=== PATIENT | male | born 1960 | race Caucasian/White ===

== ENCOUNTER 2024-01-04 10:13 | Outpatient (CLI) | payer MEDICARE, SELFPAY ==
--- NOTE | ~2024-01-04 | MR_ITS ---
Procedure: MR lumbar spine wo con Ordering provider: Bettina Gonzalez MD History: . Spinal stenosis, low back pain . Comparison: None. Technique: MRI thoracic spine without contrast. FINDINGS: SPINAL CORD: Normal. The cord ends at the level of T12-L1. VERTEBRAL BODIES: Normal height and alignment. No compression fracture. Normal marrow signal. DISK SPACES: Endplate changes seen at the level of L2-L3, L3-L4 and L4-L5. Narrowing of the disc T12-L1, L1-L2, L2-L3, L3-L4, and L4-L5 STENOSIS: T12-L1: Mild focal central disc protrusion. L1-L2: Mild spinal canal stenosis. Mild diffuse disc bulge. Bilateral facet joint disease. L2-L3: Moderate spinal canal stenosis. Diffuse disc bulge with bilateral narrowing of the foramina. No definite nerve root compression. L3-L4: Severe spinal canal stenosis. Thickening of the ligamenta flava. Diffuse disc bulge with thick ening of the ligamenta flava. Left nerve root compression. Bilateral facet joint disease. L4-L5: Severe spinal canal stenosis. Thickening of the ligamenta flava. Bilateral narrowing of the fo ramina with nerve root compression. Bilateral facet joint disease. L5-S1: Mild to moderate spinal canal stenosis. Diffuse disc bulge. Thickening of the ligamenta flava. Bilateral facet joint disease. Bilateral narrowing of the foramina with bilateral nerve root ben norma. PARASPINOUS SOFT TISSUES: Normal. IMPRESSION: No compression fracture. Multilevel degenerative disc disease with variable degrees of spinal canal stenosis, intervertebral f oraminal narrowing and nerve root compression.. Reviewed, dictated and finalized at location A. IMPRESSION: No compression fracture. Multilevel degenerative disc disease with variable degrees of spinal canal sten osis, intervertebral foraminal narrowing and nerve root compression..
--- NOTE | ~2024-01-04 | MR_ITS ---
MR cervical spine wo con Ordering provider: Bettina Gonzalez MD History: 63 years Male with . Disease of spinal cord, neck pain . Comparison: None. Technique: MRI cervical spine without contrast. FINDINGS: CERVICAL SPINAL CORD/CRANIAL CERVICAL JUNCTION: Normal in signal and caliber. CERVICAL VERTEBRAL BODIES: Normal height and alignment. Normal marrow signal. Cystic changes are seen in the odontoid process of C2 most likely degenerative. No definite fractures seen. DISK SPACES: Narrowing of the disc C3-C4, C5-C6 and C6-C7. Multilevel facet joint disease. C2-C3: No stenosis. Mild diffuse disc bulge. C3-C4: No stenosis. Diffuse disc bulge with bilateral narrowing of the foramina more on the right crista e. Bilateral nerve root compression. C4-C5: No stenosis. Diffuse disc bulge with bilateral narrowing of the foramina more on the left side . Bilateral nerve root compression. C5-C6: Mild spinal canal stenosis secondary to broad based disc bulge. Bilateral narrowing of the fo ramina with nerve root compression. C6-C7: No stenosis. Osteophytes with diffuse disc bulge with bilateral narrowing of the foramina with root compression. C7-T1: No stenosis. VISUALIZED PARASPINOUS SOFT TISSUES: Normal. IMPRESSION: 1. Multilevel degenerative disc disease with variable degrees of spinal canal stenosis, intervertebr al foraminal narrowing and with compression. Reviewed, dictated and finalized at location A. IMPRESSION: 1. Multilevel degenerative disc disease with variable degrees of spinal canal stenosis, intervertebral foraminal narrowing and with compression.
== END 2024-01-04 10:14 | disposition home or self-care (01) ==
LOC: GOSHIMG 10:15
PROVIDERS: PCP Neurological Surgery; Visit Provider Neurological Surgery
DX: G54.4 Lumbosacral root disorders, not elsewhere classified (principal); M48.061 Spinal stenosis, lumbar region without neurogenic claudication; M48.07 Spinal stenosis, lumbosacral region
CPT/HCPCS: 72141; 72148

== ENCOUNTER 2024-03-28 14:04 | Outpatient (CLI) | payer MEDICARE, SELFPAY ==
--- NOTE | 2024-03-28 15:20 | ECG_ITS ---
Test Date: 2024-03-28 15:40:51 Measurements Intervals [place] Rate: 67 P: 49 MN: 130 QRS: 53 QRSD: 90 T: 129 QT: 364 QTc: 385 Interpretive Statements SINUS RHYTHM ST DEVIATION AND MODERATE T-WAVE ABNORMALITY, CONSIDER LATERAL ISCHEMIA [-0.1+ mV T WAVE IN I/aVL/V5/V6] No previous ECG available for comparison Electronically Signed On 03-30-2024 08:46:01 TRAFFIC AND TRANSPORT PLANNER by Rosendo Benjamin M.D.
[2024-03-28 16:08] LABS: Basophils Absolute Auto 0.1 K/mm3 (0.0-0.1); Basophils Percent Auto 0.8 % (0.2-1.2); Eosinophils Absolute Auto 0.3 K/mm3 (0-0.3); Eosinophils Percent Auto 3.2 % (0-4.4); Hematocrit 43.7 % (42.0-52.0); Hemoglobin 14.4 g/dL (14.0-18.0); Immature Granulocyte Absolute 0.03 K/mm3 (0.00-0.031); Immature Granulocyte Percent A 0.3 % (0-0.5); Lymphocytes Absolute Auto 1.87 K/mm3 (0.9-3.2); Lymphocytes Percent Auto 21.6 % (18.3-44.2); Mean Corpuscular Hemoglobin 29.3 pg (26-34); Mean Corpuscular Volume 88.8 fl (80-100); Mean Platelet Volume 9.9 fl (7.4-10.4); Monocytes Absolute Auto 0.5 K/mm3 (0.1-0.6); Neutrophils Absolute Auto 5.9 K/mm3 (1.3-6.7); Neutrophils Percent Auto 68.1 % (45.5-73.1); Platelet Count Result 285 k/mm3 (150-375); Red Blood Count 4.92 M/mm3 (4.6-6.20); Red Cell Distribution Width 13.4 % (11.5-14.5); White Blood Count 8.6 K/mm3 (4.5-10.0)
[2024-03-28 16:09] LABS: Add Urine Microscopic? NO; Appearance Urine Clear (Clear); Bilirubin Urine Negative (Negative); Blood Urine Negative (Negative); Color Urine Yellow (Yellow); Glucose Urine UA Negative (Negative); Ketones Urine Negative (Negative); Leukocyte Esterase Ur Negative LEU/UL (Negative); Nitrate Urine Negative (Negative); Protein Urine Negative (Negative); Specific Grav Ur 1.014 (1.001-1.035); Urobilinogen Urine 0.2 mg/dL (<2.0)
[2024-03-28 17:01] LABS: Anion Gap 7 mmol/L (4-12); Blood Urea Nitrogen 21 mg/dL (9-20); Calcium 9.1 mg/dL (8.4-10.2); Carbon Dioxide 26 mmol/L (22-30); Chloride 105 mmol/L (98-107); Estimated Glomerular Filt Rate > 60; Glucose 121 mg/dL (65-110); Potassium 4.1 mmol/L (3.4-5.0); Sodium 138 mmol/L (137-145)
[2024-03-28 18:12] LABS: INR 0.9; Partial Thromboplastin Time 27.3 Seconds (22.3-36.8); Prothrombin Time 12.7 Seconds (11.1-14.7)
== END 2024-03-28 14:05 | disposition home or self-care (01) ==
LOC: ANHSURGERY 14:09
PROVIDERS: PCP Clinical Nurse Specialist; Visit Provider Neurological Surgery
DX: Z01.818 Encounter for other preprocedural examination (principal); M48.062 Spinal stenosis, lumbar region with neurogenic claudication
CPT/HCPCS: 36415; 80048; 81003; 85025; 85610; 85730; 93005

== ENCOUNTER 2024-04-11 08:45 | Outpatient (CLI) | payer MEDICARE, SELFPAY ==
--- NOTE | ~2024-04-11 | NM_ITS ---
EXAMINATION: NM tye stress w perfusion DATE: 04/11/2024 11:16 INDICATION: Abnormal electrocardiogram. Preop. TECHNIQUE: Rest images were obtained following intravenous administration of 11.6 mCi Tc99m tetrofosm in (Myoview). The patient was infused intravenously with Lexiscan (regadenoson). Then, 35.3 mCi Tc99m tetrofosmin (Myoview) was administered intravenously, and stress images were obtained. Data was cindi nstructed into short axis and horizontal and vertical long axis SPECT images. Gated SPECT images were also obtained. COMPARISON: None. FINDINGS: There is no definite reversible or fixed perfusion abnormality to suggest ischemia or infar ction. There is no segmental wall motion abnormality. Left ventricular ejection fraction measures > 70%. IMPRESSION: 1. No definite ischemia or infarct. 2. Normal left ventricular ejection fraction measuring >70%. Reviewed, dictated and finalized at location B. UCT DEVELOPMENT SPECIALIST
--- NOTE | 2024-04-11 08:47 | EST_ITS ---
Patient Info Name: Rocael Clifford Age: 63 years : 1960 Gender: Male Ht: 70 in Wt: 195 lbs BSA: 2.11 m2 HR: 68 bpm BP: 171 / 98 mmHg Exam Date: 04/11/2024 10:18 AM Exam Location: Echo Lab Patient Status: Outpatient Admit Date: 04/11/2024 Staff Ordering Physician: Lisa Lagos Attending Provider: Lisa Lagos Exercise Technologist: Marcelina Okeefe RDCS Exercise Physician: Abdifatah Tariq DO Exam Type: CA stress tye w NM Study Info A regadenoson stress test was performed. Summary 1. 1. Negative lexiscan stress test for ischemic ST changes by ECG criteria. 2. 2. Baseline hypertension. 3. 3. Nuclear scan to follow and will be reported separately. Please correlate with it. 4. 4. Patient informed of the above results. Protocol: Lexiscan Stress ECG Details Stage: REST Duration (min): 2 min : 7 sec HR (bpm): 62 SBP (mmHg): 171 DBP (mmHg): 98 Stage: REST Duration (min): 6 min : 21 sec HR (bpm): 63 SBP (mmHg): 171 DBP (mmHg): 98 Stage: STAGE 1 Duration (min): 1 min : 0 sec HR (bpm): 80 SBP (mmHg): 171 DBP (mmHg): 98 Stage: RECOVERY Duration (min): 1 min : 0 sec HR (bpm): 92 SBP (mmHg): 188 DBP (mmHg): 69 Stage: RECOVERY Duration (min): 2 min : 0 sec HR (bpm): 82 SBP (mmHg): 188 DBP (mmHg): 69 Stage: RECOVERY Duration (min): 3 min : 0 sec HR (bpm): 85 SBP (mmHg): 157 DBP (mmHg): 73 Stage: RECOVERY Duration (min): 3 min : 15 sec HR (bpm): 82 SBP (mmHg): 157 DBP (mmHg): 73 Rest HR: 63 bpm Peak HR: 92 bpm Rest Sys BP: 171 mmHg Peak Sys BP: 188 mmHg Max Pred HR: 155 bpm % Max Pred HR: 59 % Target HR: 132 bpm Max RPP: 17,296 bpm*mmHg Termination Reason: Completed protocol Cardiac Symptoms: Shortness of breath Total Time: 1 min : 0 sec Rest Tucker BP: 98 mmHg Peak Tucker BP: 69 mmHg Total Dose: 0.4 mg Resting ECG Sinus rhythm. Stress ECG No ST changes. Arrhythmias None. Report Signatures
--- OUTSIDE RECORDS SUMMARY | 2024-04-13 16:19 | XMS_ITS | Clinical Summary ---
Author Organization [facility] Address [address] [place] [address] Phone Care Team Providers Care Polymer Specialist Name Role Phone MYESHA VALLECILLO MD Primary Care Provider [phone] Reason for Visit and Chief Complaint The Chief Complaint is: Follow up from procedure Problems Includes: Problems addressed during this encounter and other active Problems All Visits Onset Date Resolved Date Provider Condition S tatus Hypogonadism 10/07/2023 MYESHA VALLECILLO MD Acti ve Last Documented On 4 3:15PM ; [facility] Limb Pain Lower Leg 12/24/2022 HAMMAD Frederick Active Last Documented On 3 9:14AM ; [facility] Note: right Sleep Disorder Hypersomnia 07/31/2021 MYESHA VALLECILLO MD Active Last Documented On 3 5:17PM ; [facility] Hyperlipidemia 08/01/2019 MYESHA VALLECILLO MD Ac tive Last Documented On 3 5:11PM ; [facility] Encounter for immunization 03/23/2019 LAINE COLBY MD Active Last Documented On 0 12:46PM ; [facility] Osteoarthritis Primary Generalized 12/19/2018 Farzad VALLECILLO MD Active Last Documented On 9 11:13AM ; [facility] Essential Hypertension 12/19/2018 MYESHA DIAZ MD Active Last Documented On 9 11:13AM ; [facility] Hypothyroidism 12/19/2016 MYESHA VALLECILLO MD Ac tive Last Documented On 9 11:13AM ; [facility] Plan of Treatment He is doing very well. He is to continue limiting himself to lifting less than 10 pounds for 2 more weeks, and follow up in 1 month or sooner if needed. - Last Documented On 08/10/2023 4:26PM ; [facility] Assessments Includes: Assessments from this encounter Findings - [Z01.818 - Encounter for other preprocedural examination] Postoperative exam - Last Documented On 08/10/2023 4:26PM ; [facility] Medical Equipment - Implanted Devices Includes: Current Devices No Medical Equipment Recorded Medications Includes: Medications discussed during this encounter and other current Medications Current Medications (continue as prescribed) Modafinil 200 MG Oral Tablet 08/23/2023 Provider: MYESHA VALLECILLO MD Diagnosis: Circadian rhythm sleep disorder, shift work type TAKE 1 TABLET BY MOUTH EVERY DAY. Last Documented On 08/23/2023 5:51PM By MYESHA VALLECILLO MD ; [facility] Pregabalin 75 MG Oral Capsule 07/21/2023 Provider: GUILLE REESE MD Diagnosis: Radiculopathy, l umbar region TAKE 1 CAPSULE ORALLY EVERY 12 HOURS Last Documented On 07/21/2023 8:32AM By Guille Reese MD ; [facility] Testosterone 25 MG/2.5GM (1%) Transdermal Gel 06/10/2023 Provider: MYESHA VALLECILLO MD Diagnosis: Testicular dysfu nction, unspecified APPLY TO CLEAN, INTACT SKIN TWICE DAILY Last Documented On 06/10/2023 2:40PM By MYESHA VALLECILLO MD ; [facility] Ibuprofen 600 MG Oral Tablet 06/10/2023 Provider: MYESHA VALLECILLO MD Diagnosis: Primary generali zed (osteo)arthritis One tablet three times a day w food Last Documented On 06/10/2023 2:40PM By MYESHA VALLECILLO MD ; [facility] Fluticasone Propionate 50 MCG/ACT Nasal Suspension 06/10/2023 Provider: MYESHA VALLECILLO MD Diagnosis: Allergic rhiniti s due to pollen as directed 1 sq each nostri l 1-2xd as needed Last Documented On 06/10/2023 2:40PM By MYESHA VALLECILLO MD ; [facility] SB Low Dose ASA EC 81 MG Oral Tablet Delayed Release 1 04/08/2018 Provider: Diagnosis: Last Documented On 02/06/2019 10:36AM By MYESHA VALLECILLO MD ; [facility] Past Medications on file Sildenafil Citrate 100 MG Oral Tablet 09/09/2023 - 03/07/2024 Provider: MYESHA VALLECILLO MD Diagnosis: Testicular dysfu nction, unspecified One tablet daily Last Documented On 09/09/2023 3:32PM By MYESHA VALLECILLO MD ; [facility] Levothyroxine Sodium 50 MCG Oral Tablet 08/23/2023 - 02/19/2024 Provider: MYESHA VALLECILLO MD Diagnosis: Hypothyroidism, unspecified TAKE 1 TABLET BY MOUTH EVERY DAY Last Documented On 08/23/2023 5:51PM By MYESHA VALLECILLO MD ; [facility] Medications Administered Includes: Administered Medications from this encounter No Administered Medications Recorded Vital Signs Includes: Vital Signs from this encounter Vital Name 08/10/2023 09:42A BP Cuff Size Regular Respiration Rate (breaths/min) 18 Temp-Temporal 97.7 Height (in) 71 Weight (lb) 211 Body Mass Index 29.4 Body Surface Area 2.2 Oxygen Saturation (%) 94 Last Documented: On 08/10/2023 9:42AM ; [facility] Results Includes: Results discussed during this encounter No Results Recorded For Specified Dates History of Present Illness Includes: History of Present Illness from this encounter ANABEL CLIFFORD is a 62 year old male. - Allergy list reviewed - Medication list reviewed Mr Clifford is a 61 year old male who presents for a colonoscopy. His last was about 10 years ago in [place], and showed a few small polyps. He has since done a cologuard in about 2017 which he says was negative. He denies abdominal pain, blood in the stool, family history of colon cancer, and GERD. He returns today in follow up from colonoscopy done on November 27, 2022. This showed 3 small polyps and a questionable lesion on the ileocecal valve. The IC valve lesions was normal colon wall. The polyps were a sessile serrated adenoma, and 2 tubular adenomas. He denies any new complaints. He returns today wanting to further discuss repair of his umbilical hernia. He has been having some worsening discomfort, especially when it is touched. He denies abdominal pain, nausea, and vomiting. He returns today after Laparoscopic Umbilical Hernia Repair on August 02, 2023. He is feeling better every day, and only took about 2 Norcos. He is tolerating a regular diet well, and is having regular bowel movements. Social History Description Last Updated Not a current smoker 06/10/2023 Last Documented On 4 9:41AM ; [facility] Consuming 5 or more drinks per day None 06/10/2023 Last Documented On 4 9:41AM ; [facility] Not recovering alcoholic 06/10/2023 Last Documented On 4 9:41AM ; [facility] Not recovering from substance abuse 05/21 Last Documented On 4 9:41AM ; [facility] Number of times used recreat ional drug/ prescription drug for nonmedical reason. None 06/10/2023 Last Documented On 4 9:41AM ; [facility] No recent change in sleep 01/21/2023 Last Documented On 4 9:41AM ; [facility] Alcohol 01/21/2023 Last Documented On 4 9:41AM ; [facility] Amount of alcohol per day: 1-2 3 Last Documented On 4 9:41AM ; [facility] Not using drugs 01/21/2023 Last Documented On 4 9:41AM ; [facility] Not a job-related injury 08/26/2022 Last Documented On 4 9:41AM ; [facility] Not using alcohol 05/08/2022 Last Documented On 4 9:41AM ; [facility] Former smoker 05/08/2022 Last Documented On 4 9:41AM ; [facility] Tobacco non-user 03/13/2021 Last Documented On 4 9:41AM ; [facility] Current nonsmoker 05/24/2020 Last Documented On 4 9:41AM ; [facility] Social history changed 11/30/2019 Last Documented On 4 9:41AM ; [facility] Non-smoker 11/30/2019 Last Documented On 4 9:41AM ; [facility] Smoking status : Never smoker 06/26/2019 Last Documented On 4 9:41AM ; [facility] No tobacco use 12/19/2018 Last Documented On 4 9:41AM ; [facility] Procedures and Surgical History Surgical History Last Updated No Pacemaker 01/21/2023 Last Documented On 4 9:41AM ; [facility] Medical History Includes: Medical History addressed during this encounter Description Last Updated Blood pressure was high 01/21/2023 Last Documented On 4 9:41AM ; [facility] Hypertension 01/21/2023 Last Documented On 4 9:41AM ; [facility] No exposure to a contagious disease 04/2022 Last Documented On 4 9:41AM ; [facility] No previous psychiatric treatment 2022 Last Documented On 4 9:41AM ; [facility] Not taking OTC medications 01/21/2023 Last Documented On 4 9:41AM ; [facility] Taking medication for high blood pressur e 01/21/2023 Last Documented On 4 9:41AM ; [facility] CT/MRI [facility] dec 30 01/21/2023 Last Documented On 4 9:41AM ; [facility] Message/Acupressure 01/21/2023 Last Documented On 4 9:41AM ; [facility] Moderate to severe pain 01/21/2023 Last Documented On 4 9:41AM ; [facility] No Pain Pump 01/21/2023 Last Documented On 4 9:41AM ; [facility] No Spinal cord stimulator 01/21/2023 Last Documented On 4 9:41AM ; [facility] Please list all illnesses/co nditions you have been diagnosed with: Spinal stenosis. sciatica. bulging diskno spring on either foot right foot ortho issues 01/21/2023 Last Documented On 4 9:41AM ; [facility] Please list all surgeries: Foot surgery august [address] [facility] [address] [place] 01/21/2023 Last Documented On 4 9:41AM ; [facility] X-rays [facility] dr vallecillo referred xray nov 2022 01/21/2023 Last Documented On 4 9:41AM ; [facility] History of colonoscopy fiberoptic was pe rformed 11/25/2022 12/09/2022 Last Documented On 4 9:41AM ; [facility] History of hyperlipidemia 02/06/2019 Last Documented On 4 9:41AM ; [facility] History of essential hypertension 2018 Last Documented On 4 9:41AM ; [facility] No recent change in medical history 11/22 Last Documented On 4 9:41AM ; [facility] Family History Includes: Family History addressed during this encounter No Family History Recorded Review of Systems Includes: Review of Systems from this encounter Systemic: No fever and no recent weight change. Head: No headache. Eyes: No blurry vision and no eye pain. Otolaryngeal: No earache and no sore throat. Cardiovascular: No chest pain or discomfort and no palpitations. Pulmonary: No dyspnea and no cough. Gastrointestinal: Normal appetite, no abdominal pain, and no melena. Genitourinary: No hematuria and no increase in urinary frequency. No dysuria. Endocrine: No temperature intolerance. Hematologic: No hematologic symptoms. Musculoskeletal: No localized soft tissue swelling in both extremities. Neurological: No convulsions. Mental Status Includes: Mental Status from this encounter No Mental Status Recorded Functional Status Includes: Functional Status from this encounter No Functional Status Recorded Physical Exam Includes: Physical Exam from this encounter Allergies Includes: Active Allergies No Known Allergies Encounters Encounter Provider Location Date Check-In Time Check-Out Time Diagnosis FOLLOW UP CHARLOTTE UNGER MD [facility] 08/10/19 24 9:25AM 9:43AM Postoperative Exam Insurance Includes: Active Insurance Policies Plan Name Member ID Group # Subscriber Relationship Effect sally Dates 1 - [employer] [id number] SHAKA CLIFFORD Self Clinical Notes Includes: Clinical Notes from this encounter * Progress note Date Encounter Last Documented by 08/10/2023 FOLLOW UP Last documented on 08/10/2023; 4:26 PM, CHARLOTTE UNGER MD; [facility] Top of Document This document represents the pre-surgical History & Physical for this patient Active Problems & Conditions - Z23 - Encounter for immunization - I10 - Essential Hypertension - Hyperlipidemia - E03.9 - Hypothyroidism - M79.661 - Limb Pain Lower Leg - right - M15.0 - Osteoarthritis Primary Generalized - G47.10 - Sleep Disorder Hypersomnia - E29.9 - Testicular Dysfunction Chief Complaint The Chief Complaint is: Follow up from procedure. History of Present Illness SHAKA CLIFFORD is a 62 year old male. - Allergy list reviewed - Medication list reviewed Mr Clifford is a 61 year old male who presents for a colonoscopy. His last was about 10 years ago in [place], and showed a few small polyps. He has since done a cologuard in about 2017 which he says was negative. He denies abdominal pain, blood in the stool, family history of colon cancer, and GERD. He returns today in follow up from colonoscopy done on November 27, 2022. This showed 3 small polyps and a questionable lesion on the ileocecal valve. The IC valve lesions was normal colon wall. The polyps were a sessile serrated adenoma, and 2 tubular adenomas. He denies any new complaints. He returns today wanting to further discuss repair of his umbilical hernia. He has been having some worsening discomfort, especially when it is touched. He denies abdominal pain, nausea, and vomiting. He returns today after Laparoscopic Umbilical Hernia Repair on August 02, 2023. He is feeling better every day, and only took about 2 Norcos. He is tolerating a regular diet well, and is having regular bowel movements. Current Medication - Fluticasone Propionate 50 MCG/ACT Nasal Suspension as directed 1 sq each nostril 1-2xd as needed, 30 days, 5 refills - Ibuprofen 600 MG Oral Tablet One tablet three times a day w food, 30 days, 5 refills - Levothyroxine Sodium 50 MCG Oral Tablet TAKE 1 TABLET BY MOUTH EVERY DAY, 90 days, 1 refills - Modafinil 200 MG Oral Tablet TAKE 1 TABLET BY MOUTH EVERY DAY., 30 days, 0 refills - Pregabalin 75 MG Oral Capsule TAKE 1 CAPSULE ORALLY EVERY 12 HOURS, 30 days, 2 refills - SB Low Dose ASA EC 81 MG Oral Tablet Delayed Release One tablet daily 0 days, 0 refills - Sildenafil Citrate 100 MG Oral Tablet One tablet daily, 90 days, 1 refills - Testosterone 25 MG/2.5GM (1%) Transdermal Gel APPLY TO CLEAN, INTACT SKIN TWICE DAILY, 30 days, 4 refills Past Medical/Surgical History Reported: No recent change in medical history, Message/Acupressure, Please list all illnesses/conditions you have been diagnosed with: Spinal stenosis. sciatica. bulging diskno spring on either foot right foot ortho issues, and Please list all surgeries: Foot surgery august [address] [facility] [address] [place]. Medical: No previous psychiatric treatment. Moderate to severe pain and Hypertension. No Spinal cord stimulator and no Pain Pump. Surgical / Procedural: No Pacemaker. Medications: Taking medication for high blood pressure. Not taking OTC medications. Tests: Blood pressure was high, X-rays [facility] dr vallecillo referred xray nov 2022, and CT/MRI [facility] jan 18. Exposure: No exposure to a contagious disease. Other: Diagnostic fiberoptic colonoscopy 11/25/2022 Diagnoses: Essential hypertension. Hyperlipidemia Social History Social history changed. Behavioral: Amount of alcohol per day: 1-2. Tobacco use: No tobacco use and not a current smoker. Former smoker, current nonsmoker, and non-smoker. Smoking status: Never smoker. Alcohol: Alcohol. Not using alcohol. Consuming 5 or more drinks per day None. Not recovering alcoholic. Drug Use: Not using drugs and not recovering from substance abuse. Number of times used recreational drug/ prescription drug for nonmedical reason. None. Habits: No recent change in sleep. Work: Not a job-related injury. Allergies - No Known Allergies Review Of Systems Systemic: No fever and no recent weight change. Head: No headache. Eyes: No blurry vision and no eye pain. Otolaryngeal: No earache and no sore throat. Cardiovascular: No chest pain or discomfort and no palpitations. Pulmonary: No dyspnea and no cough. Gastrointestinal: Normal appetite, no abdominal pain, and no melena. Genitourinary: No hematuria and no increase in urinary frequency. No dysuria. Endocrine: No temperature intolerance. Hematologic: No hematologic symptoms. Musculoskeletal: No localized soft tissue swelling in both extremities. Neurological: No convulsions. Physical Findings - Vitals taken 08/10/2023 09:42 am BP Cuff Size Regular Respiration Rate 18 per min Temp-Temporal 97.7 F Height 71 in Weight 211 lbs Body Mass Index 29.4 kg/m2 Body Surface Area 2.2 m2 Oxygen Saturation 94 % General Appearance: - Well developed. - Well nourished. - In no acute distress. Eyes: General/bilateral: Pupils: - PERRLA. Lungs: - Clear to auscultation. - No wheezing was heard. Cardiovascular: Heart Rate And Rhythm: - Normal. Abdomen: Auscultation: - Bowel sounds were normal soft, mild appropriate incisional tenderness, ND, +BS, no rebound or gaurding. There is no further hernia. There is minmal ecchymosis, and no sign of infection. Palpation: - Abdominal non-tender. Skin: - Normal. Assessment - [Z01.818 - Encounter for other preprocedural examination] Postoperative exam Plan He is doing very well. He is to continue limiting himself to lifting less than 10 pounds for 2 more weeks, and follow up in 1 month or sooner if needed. Health Reminders - Assess Need for CT Lung Screen satisfied 08/10/2023. - Assess Tobacco Use satisfied 08/10/2023. - Colorectal Cancer Screening satisfied 11/25/2022.
--- OUTSIDE RECORDS SUMMARY | 2024-04-13 16:19 | XMS_ITS ---
Care Plan - [facility] Created on: April 13, 2024 SHAKA COTO : 1960 Sex: Male Author Organization [facility] Address [address] [place] [address] Phone Care Team Providers Care District Plant Engineer Name Role Phone MYESHA VALLECILLO MD Primary Care Provider [phone]
--- OUTSIDE RECORDS SUMMARY | 2024-04-13 16:19 | XMS_ITS | Clinical Summary ---
Author Organization [facility] Address [address] [place] [address] Phone Care Team Providers Care Clocksmith Name Role Phone MYESHA VALLECILLO MD Primary Care Provider [phone] Reason for Visit and Chief Complaint SURGERY IN HOSPITAL Problems Includes: Problems addressed during this encounter and other active Problems All Visits Onset Date Resolved Date Provider Condition S tatus Hypogonadism 10/07/2023 MYESHA VALLECILLO MD Acti ve Last Documented On 4 3:15PM ; [facility] Limb Pain Lower Leg 12/24/2022 [facility] Active Last Documented On 3 9:14AM ; [facility] Note: right Sleep Disorder Hypersomnia 07/31/2021 MYESHA VALLECILLO MD Active Last Documented On 3 5:17PM ; [facility] Hyperlipidemia 08/01/2019 MYESHA VALLECILLO MD Ac tive Last Documented On 3 5:11PM ; [facility] Encounter for immunization 03/23/2019 LAINE COLBY MD Active Last Documented On 0 12:46PM ; [facility] Osteoarthritis Primary Generalized 12/19/2018 Farzad VALLECILLO MD Active Last Documented On 9 11:13AM ; [facility] Essential Hypertension 12/19/2018 MYESHA DIAZ MD Active Last Documented On 9 11:13AM ; [facility] Hypothyroidism 12/19/2016 MYESHA VALLECILLO MD Ac tive Last Documented On 9 11:13AM ; [facility] Plan of Treatment No Plan of Treatment Recorded Assessments Includes: Assessments from this encounter No Assessments Recorded Medical Equipment - Implanted Devices Includes: Current Devices No Medical Equipment Recorded Medications Includes: Medications discussed during this encounter and other current Medications Current Medications (continue as prescribed) Modafinil 200 MG Oral Tablet 08/23/2023 Provider: MYESHA VALLECILLO MD Diagnosis: Circadian rhythm sleep disorder, shift work type TAKE 1 TABLET BY MOUTH EVERY DAY. Last Documented On 08/23/2023 5:51PM By MYESHA VALLECILLO MD ; [facility] Pregabalin 75 MG Oral Capsule 07/21/2023 Provider: GUILLE REESE MD Diagnosis: Radiculopathy, l umbar region TAKE 1 CAPSULE ORALLY EVERY 12 HOURS Last Documented On 07/21/2023 8:32AM By Guille Reese MD ; [facility] Testosterone 25 MG/2.5GM (1%) Transdermal Gel 06/10/2023 Provider: MYESHA VALLECILLO MD Diagnosis: Testicular dysfu nction, unspecified APPLY TO CLEAN, INTACT SKIN TWICE DAILY Last Documented On 06/10/2023 2:40PM By MYESHA VALLECILLO MD ; [facility] Ibuprofen 600 MG Oral Tablet 06/10/2023 Provider: MYESHA VALLECILLO MD Diagnosis: Primary generali zed (osteo)arthritis One tablet three times a day w food Last Documented On 06/10/2023 2:40PM By MYESHA VALLECILLO MD ; [facility] Fluticasone Propionate 50 MCG/ACT Nasal Suspension 06/10/2023 Provider: MYESHA VALLECILLO MD Diagnosis: Allergic rhiniti s due to pollen as directed 1 sq each nostri l 1-2xd as needed Last Documented On 06/10/2023 2:40PM By MYESHA VALLECILLO MD ; [facility] SB Low Dose ASA EC 81 MG Oral Tablet Delayed Release 1 04/08/2018 Provider: Diagnosis: Last Documented On 02/06/2019 10:36AM By MYESHA VALLECILLO MD ; [facility] Medications Administered Includes: Administered Medications from this encounter No Administered Medications Recorded Results Includes: Results discussed during this encounter No Results Recorded For Specified Dates History of Present Illness Includes: History of Present Illness from this encounter No History of Present Illness Recorded Social History No Social History Recorded - Smoking Status Unknown Procedures and Surgical History Includes: Procedures from this encounter Procedures Code Diagnosis Performing Provider Service Location Service Date REPAIR OF [address]TERIOR A[address] HERNIA, AND APPROACH< 3CM DEFECT 68686 Umbilical hernia without obstruction or gangrene [facility]TE UNGER MD [facility] 08/02/2023 Last Documented On 4 8:32AM ; [facility] Medical History Includes: Medical History addressed during this encounter No Medical History Recorded Family History Includes: Family History addressed during this encounter No Family History Recorded Review of Systems Includes: Review of Systems from this encounter No Review of Systems Recorded Mental Status Includes: Mental Status from this encounter No Mental Status Recorded Functional Status Includes: Functional Status from this encounter No Functional Status Recorded Physical Exam Includes: Physical Exam from this encounter No Physical Exam Recorded Allergies Includes: Active Allergies No Known Allergies Encounters Encounter Provider Location Date Check-In Time Check-Out Time Diagnosis SURGERY IN HOSPITAL [facility] UNGER MD [facility] 4 8:32AM 11:59PM Insurance Includes: Active Insurance Policies Plan Name Member ID Group # Subscriber Relationship Effect sally Dates - [employer] [id number] SHAKA COTO Self Clinical Notes Includes: Clinical Notes from this encounter No Clinical Notes Recorded
--- OUTSIDE RECORDS SUMMARY | 2024-04-13 16:19 | XMS_ITS | Clinical Summary ---
Author Organization [facility] Address [address] [place] [address] Phone Care Team Providers Care Oil Speculator Name Role Phone MYESHA VALLECILLO MD Primary Care Provider [phone] Reason for Visit and Chief Complaint * PHONE CALL Problems Includes: Problems addressed during this encounter and other active Problems All Visits Onset Date Resolved Date Provider Condition S tatus Hypogonadism 10/07/2023 MYESHA VALLECILLO MD Acti ve Last Documented On 4 3:15PM ; [facility] Limb Pain Lower Leg 12/24/2022 [facility] Active Last Documented On 3 9:14AM ; [facility] Note: right Sleep Disorder Hypersomnia 07/31/2021 MYESHA VALLECILLO MD Active Last Documented On 3 5:17PM ; [facility] Hyperlipidemia 08/01/2019 MYESHA VALLECILLO MD Ac tive Last Documented On 3 5:11PM ; [facility] Encounter for immunization 03/23/2019 LAINE COLBY MD Active Last Documented On 0 12:46PM ; [facility] Osteoarthritis Primary Generalized 12/19/2018 Farzad VALLECILLO MD Active Last Documented On 9 11:13AM ; [facility] Essential Hypertension 12/19/2018 MYESHA DIAZ MD Active Last Documented On 9 11:13AM ; [facility] Hypothyroidism 12/19/2016 MYESHA VALLECILLO MD Ac tive Last Documented On 9 11:13AM ; [facility] Plan of Treatment No Plan [...] 08/23/2023 5:51PM By MYESHA VALLECILLO MD ; [facility] Pregabalin 75 MG Oral Capsule 07/21/2023 Provider: GUILLE REESE MD Diagnosis: Radiculopathy, l umbar region TAKE 1 CAPSULE ORALLY EVERY 12 HOURS Last Documented On 07/21/2023 8:32AM By Guille Reese MD ; [facility] Testosterone 25 MG/2.5GM (1%) Transdermal Gel 06/10/2023 Provider: MYESHA VALLECILLO MD Diagnosis: Testicular dysfu nction, unspecified APPLY TO CLEAN, INTACT SKIN TWICE DAILY Last Documented On 06/10/2023 2:40PM By MYESHA VALLECILLO MD ; [facility] Ibuprofen 600 MG Oral Tablet 06/10/2023 Provider: MYESHA VALLECILLO MD Diagnosis: Primary generali zed (osteo)arthritis One tablet three times a day w food Last Documented On 06/10/2023 2:40PM By MYESHA VALLECILLO MD ; [facility] Fluticasone Propionate 50 MCG/ACT Nasal Suspension 06/10/2023 Provider: MYESHA VALLECILLO MD Diagnosis: Allergic rhiniti s due to pollen as directed 1 sq each nostri l 1-2xd as needed Last Documented On 06/10/2023 2:40PM By MYESHA VALLECILLO MD ; [facility] SB Low Dose ASA EC 81 MG Oral Tablet Delayed Release 1 04/08/2018 Provider: Diagnosis: Last Documented On 02/06/2019 10:36AM By MYESHA VALLECILLO MD ; [facility] Medications Administered Includes: Administered Medications from this encounter No Administered Medications Recorded Results Includes: Results discussed during this encounter No Results Recorded For Specified Dates History of Present Illness Includes: History of Present Illness from this encounter No History of Present Illness Recorded Social History No Social History Recorded - Smoking Status Unknown Medical History Includes: Medical History addressed during [...] Location Date Check-In Time Check-Out Time Diagnosis * PHONE CALL GUILLE REESE MD [facility] 4 8:45AM 11:59PM Insurance Includes: Active Insurance Policies Plan Name Member ID Group # Subscriber Relationship Effect sally Dates - [employer] [id number] SHAKA COTO Self Clinical Notes Includes: Clinical Notes from this encounter No Clinical Notes Recorded
--- OUTSIDE RECORDS SUMMARY | 2024-04-13 16:19 | XMS_ITS ---
Author Organization [facility] Address [address] [place] [address] Phone Care Team Providers Care Technical Document Writer Name Role Phone MYESHA HARTMANN MD Primary Care Provider [phone] Reason for Referral Date Encounter Description Provider Reason for Referral 12/17/22 PROBLEM VISIT MYESHA HARTMANN MD Request Consultation By Specialist - ortho 05/08/22 CHECK UP MYESHA HARTMANN MD Request C onsultation By Specialist - ---GI Problems Includes: Active, inactive, and resolved Problems All Visits Onset Date Resolved Date Provider Condition S tatus Hypogonadism 10/07/2023 MYESHA HARTMANN MD Acti ve Last Documented On 4 3:15PM ; [facility] Limb Pain Lower Leg 12/24/2022 HAMMAD Frederick Active Last Documented On 3 9:14AM ; [facility] Note: right Sleep Disorder Hypersomnia 07/31/2021 MYESHA HARTMANN MD Active Last Documented On 3 5:17PM ; [facility] Hyperlipidemia 08/01/2019 MYESHA HARTMANN MD Ac tive Last Documented On 3 5:11PM ; [facility] Encounter for immunization 03/23/2019 LAINE COLBY MD Active Last Documented On 0 12:46PM ; [facility] Osteoarthritis Primary Generalized 12/19/2018 Farzad HARTMANN MD Active Last Documented On 9 11:13AM ; [facility] Essential Hypertension 12/19/2018 MYESHA DIAZ MD Active Last Documented On 9 11:13AM ; [facility] Hypothyroidism 12/19/2016 MYESHA HARTMANN MD Ac tive Last Documented On 9 11:13AM ; [facility] Plan of Treatment Findings Encounter Date Continue current medication CHECK UP with MYESHA HARTMANN MD 06/10/2023 Last Documented On 4 3:18PM ; [facility] Ordered CBC CHECK UP with MYESHA HARTMANN MD 06/10/2023 Last Documented On 4 3:18PM ; [facility] Ordered comprehensive metabo lic panel /test f/t CHECK UP with MYESHA HARTMANN MD 06/10/2023 Last Documented On 4 3:18PM ; [facility] Ordered follow-up visit Fay CHECK UP with FLORINDA HARTMANN MD 06/10/2023 Last Documented On 4 3:18PM ; [facility] I would like to obtain an MR I of the lumbar spine without contrast due to his radicular discomfort as well as his atrophy and weakness in the calves along with his pain in the right buttock that worsens with sneezing. Perhaps he has some discogenic discomfort, but also likely some foraminal stenosis that would affect possibly the L5 nerve root. He has not gotten better with time as well as exercise or oral steroids. We discussed after he gets the MRI of the lumbar spine without contrast, we would send him to pain management for discussion of a possible epidural injection as he wants to avoid any surgical intervention ORTHO ESTABLISHED PATIENT with HAMMAD Frederick 12/24/2022 Last Documented On 3 9:20AM ; [facility] Continue current medication pred PROBLEM VISIT w ith MYESHA HARTMANN MD 12/17/2022 Last Documented On 3 12:04PM ; [facility] Ordered analgesics (non-ster oidal anti-inflammatory agents) PROBLEM VISIT with MYESHA HARTMANN MD 12/17/2022 Last Documented On 3 12:04PM ; [facility] Ordered follow-up visit --dec PROBLEM VISIT with MYESHA HARTMANN MD 12/17/2022 Last Documented On 3 12:04PM ; [facility] Ordered home range of motion exercises P ROBLEM VISIT with MYESHA HARTMANN MD 12/17/2022 Last Documented On 3 12:04PM ; [facility] Requested request consultati on by specialist ortho PROBLEM VISIT with MYESHA HARTMANN MD 12/17/2022 Last Documented On 3 12:04PM ; [facility] Continue current medication CHECK UP with MYESHA HARTMANN MD 11/20/2022 Last Documented On 3 3:57PM ; [facility] Ordered follow-up visit dec CHECK UP with MYESHA HARTMANN MD 11/20/2022 Last Documented On 3 3:57PM ; [facility] Treatment options reviewed w ith the patient related to condition/diagnosis. Discussed advantages and disadvantages as well as risks/potential complications related to nail surgery. Risk of recurrence explained. All questions answered, informed consent reviewed and pt agrees to proceed. Patient has decided to try taking doxycycline for the next week and then he will come back in a week later to have the nail removed if necessary. Patinet to have an xray to rule out a bone spur. PODIATRY CONSULTATION- ESTABLISHED PATIENT with SULY Frederick 08/26/2022 Last Documented On 3 2:27PM ; [facility] Continue current medication CHECK UP with MYESHA HARTMANN MD 07/31/2022 Last Documented On 3 5:31PM ; [facility] Ordered comprehensive metabo lic panel /tsh/psa/a1c CHECK UP with MYESHA HARTMANN MD 07/31/2022 Last Documented On 3 5:31PM ; [facility] Ordered follow-up visit CHECK UP with MYESHA PALACIOS MD 07/31/2022 Last Documented On 3 5:31PM ; [facility] Continue current medication CHECK UP with MYESHA HARTMANN MD 05/08/2022 Last Documented On 3 3:33PM ; [facility] Ordered CBC CHECK UP with MYESHA HARTMANN MD 05/08/2022 Last Documented On 3 3:33PM ; [facility] Ordered comprehensive metabo lic panel /test/TSH CHECK UP with MYESHA HARTMANN MD 05/08/2022 Last Documented On 3 3:33PM ; [facility] Ordered follow-up visit may CHECK UP with MYESHA HARTMANN MD 05/08/2022 Last Documented On 3 3:33PM ; [facility] Requested request consultati on by specialist ---GI CHECK UP with MYESHA HARTMANN MD 05/08/2022 Last Documented On 3 3:33PM ; [facility] Continue current medication CHECK UP with MYESHA HARTMANN MD 10/03/2021 Last Documented On 2 3:26PM ; [facility] Ordered comprehensive metabo lic panel /psa CHECK UP with MYESHA HARTMANN MD 10/03/2021 Last Documented On 2 3:26PM ; [facility] Ordered follow-up visit oct CHECK UP with MYESHA HARTMANN MD 10/03/2021 Last Documented On 2 3:26PM ; [facility] Continue current medication add modafil 200 qd - CHECK UP with MYESHA HARTMANN MD 05/16/2021 Last Documented On 2 6:09PM ; [facility] Ordered follow-up visit MAY CHECK UP with MYESHA HARTMANN MD 05/16/2021 Last Documented On 2 6:09PM ; [facility] Continue current medication CHECK UP with MYESHA HARTMANN MD 01/16/2021 Last Documented On 1 11:19AM ; [facility] Ordered comprehensive metabo lic panel lipid CHECK UP with MYESHA HARTMANN MD 01/16/2021 Last Documented On 1 11:19AM ; [facility] Ordered follow-up visit Mickey CHECK UP with MYESHA HARTMANN MD 01/16/2021 Last Documented On 1 11:19AM ; [facility] Continue current medication CHECK UP with MYESHA HARTMANN MD 05/24/2020 Last Documented On 1 2:46PM ; [facility] Ordered CBC CHECK UP with MYESHA HARTMANN MD 05/24/2020 Last Documented On 1 2:46PM ; [facility] Ordered comprehensive metabolic panel CHECK UP w eliazar HARTMANN MD 05/24/2020 Last Documented On 1 2:46PM ; [facility] Ordered follow-up visit aug CHECK UP with MYESHA HARTMANN MD 05/24/2020 Last Documented On 1 2:46PM ; [facility] Continue current medication CHECK UP with MYESHA HARTMANN MD 11/30/2019 Last Documented On 0 5:30PM ; [facility] Ordered CBC CHECK UP with MYESHA HARTMANN MD 11/30/2019 Last Documented On 0 5:30PM ; [facility] Ordered comprehensive metabolic panel CHECK UP w eliazar MYESHA HARTMANN MD 11/30/2019 Last Documented On 0 5:30PM ; [facility] Ordered follow-up visit feb CHECK UP with MYESHA HARTMANN MD 11/30/2019 Last Documented On 0 5:30PM ; [facility] Continue current medication 2 MONTH CHECK with Farzad HARTMANN MD 06/26/2019 Last Documented On 0 11:28AM ; [facility] Ordered comprehensive metabo lic panel /Testosterone 2 MONTH CHECK with MYESHA HARTMANN MD 06/26/2019 Last Documented On 0 11:28AM ; [facility] Ordered follow-up visit SEPTEMBER 2 MONTH CHECK with MYESHA HARTMANN MD 06/26/2019 Last Documented On 0 11:28AM ; [facility] Continue current medication 3 MONTH CHECK with Farzad HARTMANN MD 04/27/2019 Last Documented On 0 10:03AM ; [facility] Ordered CBC 3 MONTH CHECK with MYESHA DIAZ MD 04/27/2019 Last Documented On 0 10:03AM ; [facility] Ordered comprehensive metabolic panel 3 MONTH CHECK with MYESHA HARTMANN MD 04/27/2019 Last Documented On 0 10:03AM ; [facility] Ordered follow-up visit q3m May 3 MONTH CHECK wi th MYESHA HARTMANN MD 04/27/2019 Last Documented On 0 10:03AM ; [facility] Ordered follow-up visit 3 months INJECTION with LAINE TOLEDO MD 03/13/2019 Last Documented On 0 12:48PM ; [facility] Ordered return to the clinic if condition worsens or new symptoms arise INJECTION with LAINE TOLEDO MD 03/13/2019 Last Documented On 0 12:48PM ; [facility] PLAN [Use for s.o.a.p. note free text] INJECTION with LAINE TOLEDO MD 03/13/2019 Last Documented On 0 12:48PM ; [facility] Continue current medication 2 MONTH CHECK with Farzad HARTMANN MD 02/06/2019 Last Documented On 9 10:59AM ; [facility] Ordered comprehensive metabolic panel 2 MONTH CHECK with MYESHA HARTMANN MD 02/06/2019 Last Documented On 9 10:59AM ; [facility] Ordered follow-up visit feb 2 MONTH CHECK with Farzad HARTMANN MD 02/06/2019 Last Documented On 9 10:59AM ; [facility] Continue current medication NEW PATIENT VISIT wi th MYESHA HARTMANN MD 12/19/2018 Last Documented On 9 11:32AM ; [facility] Ordered CBC NEW PATIENT VISIT with MYESHA HARTMANN MD 12/19/2018 Last Documented On 9 11:32AM ; [facility] Ordered comprehensive metabolic panel NE W PATIENT VISIT with MYESHA HARTMANN MD 12/19/2018 Last Documented On 9 11:32AM ; [facility] Pending Tests Order Diagnosis Results Due Ordering P rovider X-ray - IN OFFICE [facility] Lumbar Spine Complete Polyosteoarthritis, unspecified 12/17/22 MYESHA HARTMANN MD Last Documented On 3 11:05AM ; [facility] X-ray - IN OFFICE [facility] Hip, Unilateral Pain in right hip 12/17/22 MYESHA HARTMANN MD Last Documented On 3 11:04AM ; [facility] Lab Comp Metabolic Panel 06/10/23 ADELNIA HARTMANN MD Last Documented On 4 3:18PM ; [facility] Lab *CBC W/DIFF 07/10/23 MYESHA DIAZ MD Last Documented On 4 3:18PM ; [facility] Referrals To Diagnosis Orthopedic JOSE OAKLEY DO - [facility] - [address] [place] [id number] - Pain in right knee Note: Dr Oakley Last Documented On 1 12:58PM ; [facility] General Surgery [facility] - [address] [place] [address] - Disorder of the skin and subcutaneous tissue, unspecified Note: R post calf--kesha Bella Last Documented On 1 9:00PM ; [facility] Res Habilitation Assistant [facility] - [address] [place] [id number] - Encounter for screening for malignant neoplasm of colon Note: Dr Bella Last Documented On 4 7:41AM ; [facility] Podiatry JONATHAN HENRY DP M - [address] [address] - Ingrowing nail Last Documented On 3 9:01AM ; [facility] Orthopedic [address] [address] - Pain in right hip Note: R Khoi florez Last Documented On 3 10:01AM ; [facility] Pain Management WILL FULELR MD - [facility] - [address] [place] [address] - Radiculopathy, lumbar region Note: EVAL AND TREATRT LEG R ADICULOPATHYSUSPECTED L5 RADICULOPATHY*WE ORDERED MRI 12/24/22 TO BE COMPLETED BEFORE SEEING T Last Documented On 4 11:16AM ; [facility] Orthopedic DEVANG SEXTON MD - [facility] Radic ulopathy, lumbar region Note: MRI SHOWED SPINAL STEN OSIS, SEVERE ARTHRITIS, AND A DISC BULG Last Documented On 4 1:42PM ; [facility] Neurosurgeon MANOHAR BRAMBILA MD - [facility] - [address] [place] [phone] - Spinal stenosis, lumbar region with neurogenic claudication Note: Please evaluate need/c andidacy for surgical decompression: right low back and lower extremity pain secondary to known lumbar spinal stenosis with radiculopathy and neurogenic claudication with failure to respond to physical therapy and epidural steroid injections. Consider lumbar decompression for central canal stenosis L2 through S1 greatest at L3 - 4 and L4 -5. Last Documented On 4 9:46AM ; [facility] Instructions to patient Intervention and counseling on cessation of tobacco use Last Documented On 4 5:19PM ; [facility] Intervention and counseling on cessation of tobacco use Last Documented On 4 1:53PM ; [facility] Intervention and counseling on cessation of tobacco use Last Documented On 4 4:38PM ; [facility] Intervention and counseling on cessation of tobacco use Last Documented On 3 11:08AM ; [facility] Intervention and counseling on cessation of tobacco use Last Documented On 3 8:09AM ; [facility] Intervention and counseling on cessation of tobacco use Last Documented On 3 9:22AM ; [facility] Intervention and counseling on cessation of tobacco use Last Documented On 3 1:54PM ; [facility] Intervention and counseling on cessation of tobacco use Last Documented On 3 4:41PM ; [facility] Intervention and counseling on cessation of tobacco use Last Documented On 3 2:59PM ; [facility] Intervention and counseling on cessation of tobacco use Last Documented On 0 9:45AM ; [facility] Intervention and counseling on cessation of tobacco use Last Documented On 9 10:47AM ; [facility] Intervention and counseling on cessation of tobacco use Last Documented On 9 11:19AM ; [facility] Education and Decision Aids were provided during visit for: Patient education about home safety plans for prevention of falls : Patient completed a Fall risk assesment and was provided fall risk education materials Last Documented On 4 5:19PM ; [facility] Patient education about home safety plans for prevention of falls : Patient completed a Fall risk assesment and was provided fall risk education materials Last Documented On 4 4:38PM ; [facility] Assessments Includes: Assessments for all patient encounters Findings Encounter Date [Z01.818 - Encounter for ot er preprocedural examination] postoperative exam FOLLOW UP with CHARLOTTE BELLA MD 09/07/2023 Last Documented On 4 1:11PM ; [facility] [Z01.818 - Encounter for oth er preprocedural examination] postoperative exam FOLLOW UP with CHARLOTTE BELLA MD 08/10/2023 Last Documented On 4 4:26PM ; [facility] [K42.9 - Umbilical hernia wi thout obstruction or gangrene] reducible umbilical hernia FOLLOW UP with CHARLOTTE BELLA MD 06/29/2023 Last Documented On 4 11:56AM ; [facility] Lumbar stenosis with neuroge erasmo claudication PAIN MANAGEMENT FOLLOW UP with WILL FULLER MD 06/23/2023 Last Documented On 4 6:14AM ; [facility] Lumbosacral radiculopathy PAIN MANAGEMENT FOLLOW UP with WILL FULLER MD 06/23/2023 Last Documented On 4 6:14AM ; [facility] Lumbosacral spondylosis PAIN MANAGEMENT FOLLOW U P with WILL FULLER MD 06/23/2023 Last Documented On 4 6:14AM ; [facility] Vertebrogenic low back pain PAIN MANAGEM ENT FOLLOW UP with WILL FULLER MD 06/23/2023 Last Documented On 4 6:14AM ; [facility] Essential hypertension CHECK UP with MYESHA RIDER MD 06/10/2023 Last Documented On 4 3:18PM ; [facility] Hyperlipidemia CHECK UP with MYESHA HARTMANN MD 06/10/2023 Last Documented On 4 3:18PM ; [facility] Hypersomnia CHECK UP with MYESHA HARTMANN MD 06/10/2023 Last Documented On 4 3:18PM ; [facility] Hypogonadism CHECK UP with MYESHA HARTMANN MD 06/10/2023 Last Documented On 4 3:18PM ; [facility] Hypothyroidism CHECK UP with MYESHA HARTMANN MD 06/10/2023 Last Documented On 4 3:18PM ; [facility] Pain in lower leg CHECK UP with MYESHA HARTMANN MD 06/10/2023 Last Documented On 4 3:18PM ; [facility] Primary generalized osteoarthritis CHECK UP with MYESHA HARTMANN MD 06/10/2023 Last Documented On 4 3:18PM ; [facility] Lumbar stenosis with neuroge erasmo claudication PAIN MANAGEMENT FOLLOW UP with WILL FULLER MD 03/31/2023 Last Documented On 4 6:17PM ; [facility] Lumbosacral radiculopathy PAIN MANAGEMENT FOLLOW UP with WILL FULLER MD 03/31/2023 Last Documented On 4 6:17PM ; [facility] Lumbosacral spondylosis PAIN MANAGEMENT FOLLOW U P with WILL FULLER MD 03/31/2023 Last Documented On 4 6:17PM ; [facility] Vertebrogenic low back pain PAIN MANAGEM ENT FOLLOW UP with WILL FULLER MD 03/31/2023 Last Documented On 4 6:17PM ; [facility] Lumbar stenosis with neuroge erasmo claudication PAIN MANAGEMENT FOLLOW UP with WILL FULLER MD 02/25/2023 Last Documented On 3 4:38PM ; [facility] Lumbosacral radiculopathy PAIN MANAGEMENT FOLLOW UP with WILL FULLER MD 02/25/2023 Last Documented On 3 4:38PM ; [facility] Lumbosacral spondylosis PAIN MANAGEMENT FOLLOW U P with WILL FULLER MD 02/25/2023 Last Documented On 3 4:38PM ; [facility] Vertebrogenic low back pain PAIN MANAGEM ENT FOLLOW UP with WILL FULLER MD 02/25/2023 Last Documented On 3 4:38PM ; [facility] Lumbar stenosis with neuroge erasmo claudication PAIN MANAGEMENT NEW CONSULT ESTABLISHED with WILL FULLER MD 01/21/2023 Last Documented On 3 11:38AM ; [facility] Lumbosacral radiculopathy PAIN MANAGEMEN T NEW CONSULT ESTABLISHED with WILL FULLER MD 01/21/2023 Last Documented On 3 11:38AM ; [facility] Lumbosacral spondylosis PAIN MANAGEMENT NEW CONSULT ESTABLISHED with WILL FULLER MD 01/21/2023 Last Documented On 3 11:38AM ; [facility] Vertebrogenic low back pain PAIN MANAGEM ENT NEW CONSULT ESTABLISHED with IWLL FULLER MD 01/21/2023 Last Documented On 3 11:38AM ; [facility] Pain in lower leg ORTHO ESTABLISHED PATIENT with HAMMAD Frederick 12/24/2022 Last Documented On 3 9:20AM ; [facility] Hypersomnia PROBLEM VISIT with MYESHA DIAZ MD 12/17/2022 Last Documented On 3 12:04PM ; [facility] Hypothyroidism PROBLEM VISIT with MYESHA DIAZ MD 12/17/2022 Last Documented On 3 12:04PM ; [facility] Testicular dysfunction PROBLEM VISIT with MYESHA HARTMANN MD 12/17/2022 Last Documented On 3 12:04PM ; [facility] [Z86.010 - Personal history of colonic polyps] Personal history of colon polyps FOLLOW UP with CHARLOTTE BELLA MD 12/09/2022 Last Documented On 3 9:59PM ; [facility] [Z86.010 - Personal history of colonic polyps] Personal history of colon polyps CONSULTATION - NEW PATIENT with CHARLOTTE BELLA MD 10/19/2022 Last Documented On 3 1:28PM ; [facility] Ingrowing toenail of right foot CHECK UP with MA RADHA A ONTIS JD EDWARDS C 09/09/2022 Last Documented On 3 12:58PM ; [facility] Pain in right toe CHECK UP with SULY A ONTIS JD EDWARDS C 09/09/2022 Last Documented On 3 12:58PM ; [facility] Ingrowing toenail of right foot CHECK UP with NAA HENRY DPM 09/02/2022 Last Documented On 3 2:37PM ; [facility] Pain in right toe CHECK UP with JONATHAN Patel DPM 09/02/2022 Last Documented On 3 2:37PM ; [facility] Cellulitis of right foot PODIATRY CONSUL TATION- ESTABLISHED PATIENT with SULY A ONTIS JD EDWARDS C 08/26/2022 Last Documented On 3 2:27PM ; [facility] Ingrowing toenail of right foot PODIATRY CONSULTATION- ESTABLISHED PATIENT with SULY A ONTIS JD EDWARDS C 08/26/2022 Last Documented On 3 2:27PM ; [facility] Pain in right toe PODIATRY CONSULTATIO N- ESTABLISHED PATIENT with SULY QUINTERO JD EDWARDS C 08/26/2022 Last Documented On 3 2:27PM ; [facility] Essential hypertension CHECK UP with MYESHA RIDER MD 07/31/2022 Last Documented On 3 5:31PM ; [facility] Hyperlipidemia CHECK UP with MYESHA HARTMANN MD 07/31/2022 Last Documented On 3 5:31PM ; [facility] Hypothyroidism CHECK UP with MYESHA HARTMANN MD 07/31/2022 Last Documented On 3 5:31PM ; [facility] Primary generalized osteoarthritis CHECK UP with MYESHA HARTMANN MD 07/31/2022 Last Documented On 3 5:31PM ; [facility] Testicular dysfunction CHECK UP with MYESHA RIDER MD 07/31/2022 Last Documented On 3 5:31PM ; [facility] Essential hypertension CHECK UP with MYESHA RIDER MD 05/16/2021 Last Documented On 2 6:09PM ; [facility] Hypothyroidism CHECK UP with MYESHA HARTMANN MD 05/16/2021 Last Documented On 2 6:09PM ; [facility] Primary generalized osteoarthritis CHECK UP with MYESHA HARTMANN MD 05/16/2021 Last Documented On 2 6:09PM ; [facility] Testicular dysfunction CHECK UP with MYESHA RIDER MD 05/16/2021 Last Documented On 2 6:09PM ; [facility] COVID-19 infection COVID SICK VISIT- ES TABLISHED PATIENT with LUCIO TAY JD EDWARDS-C 03/13/2021 Last Documented On 1 12:03PM ; [facility] Essential hypertension CHECK UP with MYESHA RIDER MD 01/16/2021 Last Documented On 1 11:19AM ; [facility] Hypothyroidism CHECK UP with MYESHA HARTMANN MD 01/16/2021 Last Documented On 1 11:19AM ; [facility] Primary generalized osteoarthritis CHECK UP with MYESHA HARTMANN MD 01/16/2021 Last Documented On 1 11:19AM ; [facility] Testicular dysfunction CHECK UP with MYESHA RIDER MD 01/16/2021 Last Documented On 1 11:19AM ; [facility] Essential hypertension CHECK UP with MYESHA RIDER MD 05/24/2020 Last Documented On 1 2:46PM ; [facility] Essential hypertension CHECK UP with MYESHA RIDER MD 05/24/2020 Last Documented On 1 2:46PM ; [facility] [facility] UP with MYESHA HARTMANN MD 05/24/2020 Last Documented On 1 2:46PM ; [facility] Hypothyroidism CHECK UP with MYESHA HARTMANN MD 05/24/2020 Last Documented On 1 2:46PM ; [facility] Primary generalized osteoarthritis CHECK UP with MYESHA HARTMANN MD 05/24/2020 Last Documented On 1 2:46PM ; [facility] Primary generalized osteoarthritis CHECK UP with MYESHA HARTMANN MD 05/24/2020 Last Documented On 1 2:46PM ; [facility] Testicular dysfunction CHECK UP with MYESHA RIDER MD 05/24/2020 Last Documented On 1 2:46PM ; [facility] Testicular dysfunction CHECK UP with MYESHA RIDER MD 05/24/2020 Last Documented On 1 2:46PM ; [facility] [L81.4 - Other melanin hyper pigmentation] lentigo SUTURE REMOVAL with CHARLOTTE BELLA MD 12/15/2019 Last Documented On 0 8:30AM ; [facility] [L98.8 - Other specified dis orders of the skin and subcutaneous tissue] skin lesion: CONSULTATION with CHARLOTTE BELLA MD 12/06/2019 Last Documented On 0 2:02PM ; [facility] Essential hypertension CHECK UP with MYESHA RIDER MD 11/30/2019 Last Documented On 0 5:30PM ; [facility] Hypothyroidism CHECK UP with MYESHA HARTMANN MD 11/30/2019 Last Documented On 0 5:30PM ; [facility] Primary generalized osteoarthritis CHECK UP with MYESHA HARTMANN MD 11/30/2019 Last Documented On 0 5:30PM ; [facility] Testicular dysfunction CHECK UP with MYESHA RIDER MD 11/30/2019 Last Documented On 0 5:30PM ; [facility] Essential hypertension 2 MONTH CHECK with MYESHA HARTMANN MD 06/26/2019 Last Documented On 0 11:28AM ; [facility] Hypothyroidism 2 MONTH CHECK with MYESHA DIAZ MD 06/26/2019 Last Documented On 0 11:28AM ; [facility] Primary generalized osteoarthritis 2 MONTH CHECK with MYESHA HARTMANN MD 06/26/2019 Last Documented On 0 11:28AM ; [facility] Testicular dysfunction 2 MONTH CHECK with MYESHA HARTMANN MD 06/26/2019 Last Documented On 0 11:28AM ; [facility] Essential hypertension 3 MONTH CHECK with MYESHA HARTMANN MD 04/27/2019 Last Documented On 0 10:03AM ; [facility] Hypothyroidism 3 MONTH CHECK with MYESHA DIAZ MD 04/27/2019 Last Documented On 0 10:03AM ; [facility] Primary generalized osteoarthritis 3 MONTH CHECK with MYESHA HARTMANN MD 04/27/2019 Last Documented On 0 10:03AM ; [facility] Testicular dysfunction 3 MONTH CHECK with MYESHA HARTMANN MD 04/27/2019 Last Documented On 0 10:03AM ; [facility] Essential hypertension INJECTION with LAINE DHALIWAL MD 03/13/2019 Last Documented On 0 12:48PM ; [facility] Hypothyroidism INJECTION with LAINE TOLEDO MD 03/13/2019 Last Documented On 0 12:48PM ; [facility] Primary generalized osteoarthritis INJECTION wit h LAINE TOLEDO MD 03/13/2019 Last Documented On 0 12:48PM ; [facility] Testicular dysfunction INJECTION with LAINE DHALIWAL MD 03/13/2019 Last Documented On 0 12:48PM ; [facility] Essential hypertension NEW PATIENT VISIT with DO SYDNI HARTMANN MD 12/19/2018 Last Documented On 9 11:32AM ; [facility] Essential hypertension NEW PATIENT VISIT with DO SYDNI HARTMANN MD 12/19/2018 Last Documented On 9 11:32AM ; [facility] Hypothyroidism NEW PATIENT VISIT with MYESHA HARTMANN MD 12/19/2018 Last Documented On 9 11:32AM ; [facility] Hypothyroidism NEW PATIENT VISIT with MYESHA HARTMANN MD 12/19/2018 Last Documented On 9 11:32AM ; [facility] Primary generalized osteoarthritis NEW P ATIENT VISIT with MYESHA HARTMANN MD 12/19/2018 Last Documented On 9 11:32AM ; [facility] Primary generalized osteoarthritis NEW P ATIENT VISIT with MYESHA HARTMANN MD 12/19/2018 Last Documented On 9 11:32AM ; [facility] Testicular dysfunction NEW PATIENT VISIT with DO SYDNI HARTMANN MD 12/19/2018 Last Documented On 9 11:32AM ; [facility] Testicular dysfunction NEW PATIENT VISIT with DO SYDNI HARTMANN MD 12/19/2018 Last Documented On 9 11:32AM ; [facility] Instructions Includes: Instructions for all patient encounters Instructions to patient Intervention and counseling on cessation of tobacco use Last Documented On 4 5:19PM ; [facility] Intervention and counseling on cessation of tobacco use Last Documented On 4 1:53PM ; [facility] Intervention and counseling on cessation of tobacco use Last Documented On 4 4:38PM ; [facility] Intervention and counseling on cessation of tobacco use Last Documented On 3 11:08AM ; [facility] Intervention and counseling on cessation of tobacco use Last Documented On 3 8:09AM ; [facility] Intervention and counseling on cessation of tobacco use Last Documented On 3 9:22AM ; [facility] Intervention and counseling on cessation of tobacco use Last Documented On 3 1:54PM ; [facility] Intervention and counseling on cessation of tobacco use Last Documented On 3 4:41PM ; [facility] Intervention and counseling on cessation of tobacco use Last Documented On 3 2:59PM ; [facility] Intervention and counseling on cessation of tobacco use Last Documented On 0 9:45AM ; [facility] Intervention and counseling on cessation of tobacco use Last Documented On 9 10:47AM ; [facility] Intervention and counseling on cessation of tobacco use Last Documented On 9 11:19AM ; [facility] Education and Decision Aids were provided during visit for: Patient education about home safety plans for prevention of falls : Patient completed a Fall risk assesment and was provided fall risk education materials Last Documented On 4 5:19PM ; [facility] Patient education about home safety plans for prevention of falls : Patient completed a Fall risk assesment and was provided fall risk education materials Last Documented On 4 4:38PM ; [facility] Medical Equipment - Implanted Devices Includes: Current and historical Devices No Medical Equipment Recorded Medications Includes: Current and historical Medications Current Medications (continue as prescribed) Modafinil 200 MG Oral Tablet 08/23/2023 Provider: MYESHA HARTMANN MD Diagnosis: Circadian rhythm sleep disorder, shift work type TAKE 1 TABLET BY MOUTH EVERY DAY. Last Documented On 08/23/2023 5:51PM By MYESHA HARTMANN MD ; [facility] Pregabalin 75 MG Oral Capsule 07/21/2023 Provider: WILL FULLER MD Diagnosis: Radiculopathy, l umbar region TAKE 1 CAPSULE ORALLY EVERY 12 HOURS Last Documented On 07/21/2023 8:32AM By Will Fuller MD ; [facility] Testosterone 25 MG/2.5GM (1%) Transdermal Gel 06/10/2023 Provider: MYESHA HARTMANN MD Diagnosis: Testicular dysfu nction, unspecified APPLY TO CLEAN, INTACT SKIN TWICE DAILY Last Documented On 06/10/2023 2:40PM By MYESHA HARTMANN MD ; [facility] Ibuprofen 600 MG Oral Tablet 06/10/2023 Provider: MYESHA HARTMANN MD Diagnosis: Primary generali zed (osteo)arthritis One tablet three times a day w food Last Documented On 06/10/2023 2:40PM By MYESHA HARTMANN MD ; [facility] Fluticasone Propionate 50 MCG/ACT Nasal Suspension 06/10/2023 Provider: MYESHA HARTMANN MD Diagnosis: Allergic rhiniti s due to pollen as directed 1 sq each nostri l 1-2xd as needed Last Documented On 06/10/2023 2:40PM By MYESHA HARTMANN MD ; [facility] SB Low Dose ASA EC 81 MG Oral Tablet Delayed Release 1 04/08/2018 Provider: Diagnosis: Last Documented On 02/06/2019 10:36AM By MYESHA HARTMANN MD ; [facility] Past Medications on file Sildenafil Citrate 100 MG Oral Tablet 09/09/2023 - 03/07/2024 Provider: MYESHA HARTMANN MD Diagnosis: Testicular dysfu nction, unspecified One tablet daily Last Documented On 09/09/2023 3:32PM By MYESHA HARTMANN MD ; [facility] Levothyroxine Sodium 50 MCG Oral Tablet 08/23/2023 - 02/19/2024 Provider: MYESAH HARTMANN MD Diagnosis: Hypothyroidism, unspecified TAKE 1 TABLET BY MOUTH EVERY DAY Last Documented On 08/23/2023 5:51PM By MYESHA HARTMANN MD ; [facility] Modafinil 200 MG Oral Tablet 07/19/2023 - 08/23/2023 Provider: MYESHA HARTMANN MD Diagnosis: Circadian rhythm sleep disorder, shift work type TAKE 1 TABLET BY MOUTH EVERY DAY. Last Documented On 08/23/2023 5:48PM By MYESHA HARTMANN MD ; [facility] Modafinil 200 MG Oral Tablet 06/01/2023 - 07/19/2023 Provider: MYESHA HARTMANN MD Diagnosis: Circadian rhythm sleep disorder, shift work type TAKE 1 TABLET BY MOUTH EVERY DAY. Last Documented On 07/19/2023 12:48PM By MYESHA HARTMANN MD ; [facility] Testosterone 25 MG/2.5GM (1%) Transdermal Gel 05/25/2023 - 06/10/2023 Provider: MYESHA HARTMANN MD Diagnosis: Testicular dysfunction, unspecified APPLY TO CLEAN, INTACT SKIN TWICE DAILY Last Documented On 06/10/2023 2:26PM By MYESHA HARTMANN MD ; [facility] Pregabalin 75 MG Oral Capsule 05/19/2023 - 07/21/2023 Provider: WILL Panda Diagnosis: Radiculopathy, l umbar region Take 1 cap PO Q 12 hours Last Documented On 07/21/2023 8:28AM By Will Fuller MD ; [facility] Gabapentin 300 MG Oral Capsule 04/27/2023 - 06/10/2023 Provider: WILL Panda Diagnosis: Radiculopathy, l umbar region take one capsule po q12 x 7 days then increase to 1 capsule po q8 hours as tolerated. Last Documented On 06/10/2023 1:50PM By Tri Dominguez MA ; [facility] Testosterone 25 MG/2.5GM (1%) Transdermal Gel 04/21/2023 - 05/25/2023 Provider: MYESHA HARTMANN MD Diagnosis: Testicular dysfunction, unspecified APPLY TO CLEAN, INTACT SKIN TWICE DAILYcall schedule follow-up Last Documented On 05/25/2023 6:41PM By MYESHA HARTMANN MD ; [facility] Pregabalin 75 MG Oral Capsule 04/21/2023 - 04/27/2023 Provider: WILL FULLER MD Diagnosis: Radiculopathy, lumbosacral region take one cap po q 12 hours. Last Documented On 04/27/2023 5:26PM By Will Fuller MD ; [facility] Modafinil 200 MG Oral Tablet 04/20/2023 - 06/01/2023 Provider: MYESHA HARTMANN MD Diagnosis: Circadian rhythm sleep disorder, shift work type TAKE 1 TABLET BY MOUTH EVERY DAY. APPOINTMENT NEEDED Last Documented On 06/01/2023 12:39PM By MYESHA HARTMANN MD ; [facility] Levothyroxine Sodium 50 MCG Oral Tablet 04/20/2023 - 08/23/2023 Provider: MYESHA HARTMANN MD Diagnosis: Hypothyroidism, unspecified TAKE 1 TABLET BY MOUTH EVERY DAY Last Documented On 08/23/2023 5:48PM By MYESHA HARTMANN MD ; [facility] Azithromycin 500 MG Oral Tablet 04/20/2023 - Provider: MYESHA HARTMANN MD Diagnosis: One tablet daily Last Documented On 06/10/2023 1:50PM By Tri Dominguez MA ; [facility] Testosterone 25 MG/2.5GM (1%) Transdermal Gel 04/15/2023 - 04/21/2023 Provider: MYESHA HARTMANN MD Diagnosis: Testicular dysfunction, unspecified APPLY TO CLEAN, INTACT SKIN TWICE DAILYcall schedule follow-up Last Documented On 04/21/2023 8:30AM By MYESHA HARTMANN MD ; [facility] Modafinil 200 MG Oral Tablet 04/14/2023 - 04/20/2023 Provider: MYESHA HARTMANN MD Diagnosis: Circadian rhythm sleep disorder, shift work type TAKE 1 TABLET BY MOUTH EVERY DAY. APPOINTMENT NEEDED Last Documented On 04/20/2023 4:24PM By MYESHA HARTMANN MD ; [facility] Testosterone 25 MG/2.5GM (1%) Transdermal Gel 03/04/2023 - 04/15/2023 Provider: MYESHA HARTMANN MD Diagnosis: Testicular dysfunction, unspecified APPLY TO CLEAN, INTACT SKIN TWICE DAILY Last Documented On 04/15/2023 12:08PM By MYESHA HARTMANN MD ; [facility] Pregabalin 75 MG Oral Capsule 02/25/2023 - 04/21/2023 Provider: WILL FULLER MD Diagnosis: Radiculopathy, lumbosacral region take one cap po qhs x 7 days then increase as tolerated to one cap po q 12 hours. Last Documented On 04/21/2023 6:24PM By Will Fuller MD ; [facility] predniSONE 20 MG Oral Tablet 12/17/2022 - 02/25/2023 Provider: MYESHA HARTMANN MD Diagnosis: Pain in right hi p 2 po qd Last Documented On 02/25/2023 4:50PM By Jose Alejandro Drew [facility] ; [facility] Levothyroxine Sodium 50 MCG Oral Tablet 11/20/2022 - 04/20/2023 Provider: MYESHA HARTMANN MD Diagnosis: Hypothyroidism, unspecified TAKE 1 TABLET BY MOUTH EVERY DAY Last Documented On 04/20/2023 4:24PM By MYESHA HARTMANN MD ; [facility] Fluticasone Propionate 50 MCG/ACT Nasal Suspension 11/20/2022 - 06/10/2023 Provider: MYESHA HARTMANN MD Diagnosis: Allergic rhiniti s due to pollen as directed 1 sq each nostril 1-2xd as needed Last Documented On 06/10/2023 2:26PM By MYESHA HARTMANN MD ; [facility] Celecoxib 200 MG Oral Capsule 11/20/2022 - 06/10/2023 Provider: MYESHA HARTMANN MD Diagnosis: Polyosteoarthrit is, unspecified 1 capsule daily w food Last Documented On 06/10/2023 1:50PM By Tri Dominguez MA ; [facility] Testosterone 25 MG/2.5GM (1%) Transdermal Gel 11/20/2022 - 03/04/2023 Provider: MYESHA HARTMANN MD Diagnosis: Testicular dysfunction, unspecified apply 2xd Last Documented On 03/04/2023 2:41PM By MYESHA HARTMANN MD ; [facility] Sildenafil Citrate 100 MG Oral Tablet 11/20/2022 - 09/09/2023 Provider: MYESHA HARTMANN MD Diagnosis: Testicular dysfu nction, unspecified One tablet daily Last Documented On 09/09/2023 3:19PM By MYESHA HARTMANN MD ; [facility] Modafinil 200 MG Oral Tablet 11/06/2022 - 04/14/2023 Provider: MYESHA HARTMANN MD Diagnosis: Circadian rhythm sleep disorder, shift work type TAKE 1 TABLET BY MOUTH EVERY DAY schedule Nov follow-up Last Documented On 04/14/2023 4:32PM By MYESHA HARTMANN MD ; [facility] Doxycycline Hyclate 100 MG Oral Capsule 08/26/2022 - 09/02/2022 Provider: SULY QUINTERO JD EDWARDS C Diagnosis: One tablet twice a day Last Documented On 9:21AM By Sharri Addison Homer ; [facility] Testosterone 25 MG/2.5GM (1%) Transdermal Gel 07/13/2022 - 11/20/2022 Provider: MYESHA HARTMANN MD Diagnosis: Testicular dysfunction, unspecified apply 2xd Last Documented On 11/20/2022 3:39PM By MYESHA HARTMANN MD ; [facility] Levothyroxine Sodium 50 MCG Oral Tablet 07/13/2022 - 11/20/2022 Provider: MYESHA HARTMANN MD Diagnosis: Hypothyroidism, unspecified TAKE 1 TABLET BY MOUTH EVERY DAY Last Documented On 11/20/2022 3:39PM By MYESHA HARTMANN MD ; [facility] amLODIPine Besylate 5 MG Oral Tablet 05/08/2022 - 07/31/2022 Provider: MYESHA HARTMANN MD Diagnosis: Essential (prima ry) hypertension One tablet daily Last Documented On 07/31/2022 4:41PM By Tri Dominguez MA ; [facility] Modafinil 200 MG Oral Tablet 05/08/2022 - 11/06/2022 Provider: MYESHA HARTMANN MD Diagnosis: Circadian rhythm sleep disorder, shift work type TAKE 1 TABLET BY MOUTH EVERY DAY Last Documented On 11/06/2022 12:46PM By MYESHA HARTMANN MD ; [facility] Sildenafil Citrate 100 MG Oral Tablet 05/08/2022 - 11/20/2022 Provider: MYESHA HARTMANN MD Diagnosis: Testicular dysfu nction, unspecified One tablet daily Last Documented On 11/20/2022 3:39PM By MYESHA HARTMANN MD ; [facility] Ibuprofen 600 MG Oral Tablet 05/08/2022 - 06/10/2023 Provider: MYESHA HARTMANN MD Diagnosis: Primary generali zed (osteo)arthritis One tablet three times a day w meals prn Last Documented On 06/10/2023 1:50PM By Tri Dominguez MA ; [facility] Testosterone 25 MG/2.5GM (1%) Transdermal Gel 04/16/2022 - 07/13/2022 Provider: MYESHA HARTMANN MD Diagnosis: Testicular dysfunction, unspecified apply 2xd Last Documented On 07/13/2022 12:02PM By MYESHA HARTMANN MD ; [facility] Modafinil 200 MG Oral Tablet 04/10/2022 - 05/08/2022 Provider: MYESHA HARTMANN MD Diagnosis: Circadian rhythm sleep disorder, shift work type TAKE 1 TABLET BY MOUTH EVERY DAY Last Documented On 05/08/2022 3:19PM By MYESHA HARTMANN MD ; [facility] Testosterone 25 MG/2.5GM (1%) Transdermal Gel 04/10/2022 - 04/16/2022 Provider: MYESHA HARTMANN MD Diagnosis: Testicular dysfunction, unspecified apply 2xd Last Documented On 04/16/2022 11:33AM By MYESHA HARTMANN MD ; [facility] Testosterone 25 MG/2.5GM (1%) Transdermal Gel 04/08/2022 - 04/10/2022 Provider: MYESHA HARTMANN MD Diagnosis: Testicular dysfunction, unspecified APPLY 1 PACKET TWICE DAILY Last Documented On 04/10/2022 12:59PM By MYESHA HARTMANN MD ; [facility] Modafinil 200 MG Oral Tablet 04/08/2022 - 04/10/2022 Provider: MYESHA HARTMANN MD Diagnosis: Circadian rhythm sleep disorder, shift work type TAKE 1 TABLET BY MOUTH EVERY DAY Last Documented On 04/10/2022 12:58PM By MYESHA HARTMANN MD ; [facility] Modafinil 200 MG Oral Tablet 01/09/2022 - 04/08/2022 Provider: MYESHA HARTMANN MD Diagnosis: Circadian rhythm sleep disorder, shift work type TAKE 1 TABLET BY MOUTH EVERY DAY Last Documented On 04/08/2022 1:57PM By MYESHA HARTMANN MD ; [facility] Testosterone 25 MG/2.5GM (1%) Transdermal Gel 11/28/2021 - 04/08/2022 Provider: MYESHA HARTMANN MD Diagnosis: Testicular dysfunction, unspecified APPLY 1 PACKET TWICE DAILY Last Documented On 04/08/2022 1:56PM By MYESHA HARTMANN MD ; [facility] predniSONE 20 MG Oral Tablet 10/06/2021 - 12/05/2021 P rovider: MYESHA HARTMANN MD Diagnosis: 2 po qd Last Documented On 2:34PM By RUSTY PEDRAZA Homer ; [facility] Sildenafil Citrate 100 MG Oral Tablet 10/03/2021 - 05/08/2022 Provider: MYESHA HARTMANN MD Diagnosis: Testicular dysfu nction, unspecified One tablet daily Last Documented On 05/08/2022 3:13PM By MYESHA HARTMANN MD ; [facility] Modafinil 200 MG Oral Tablet 10/03/2021 - 01/09/2022 Provider: MYESHA HARTMANN MD Diagnosis: Circadian rhythm sleep disorder, shift work type One tablet daily Last Documented On 01/09/2022 6:35PM By MYESHA HARTMANN MD ; [facility] Levothyroxine Sodium 50 MCG Oral Tablet 10/03/2021 - 03/23/2022 Provider: MYESHA HARTMANN MD Diagnosis: Hypothyroidism, unspecified TAKE 1 TABLET BY MOUTH EVERY DAY Last Documented On 03/23/2022 8:19AM By MYESHA HARTMANN MD ; [facility] amLODIPine Besylate 5 MG Oral Tablet 10/03/2021 - 05/08/2022 Provider: MYESHA HARTMANN MD Diagnosis: Essential (prima ry) hypertension One tablet daily Last Documented On 05/08/2022 3:13PM By MYESHA HARTMANN MD ; [facility] Testosterone 25 MG/2.5GM (1%) Transdermal Gel 09/24/2021 - 11/28/2021 Provider: MYESHA HARTMANN MD Diagnosis: Testicular dysfunction, unspecified APPLY 1 PACKET TWICE DAILY Last Documented On 11/28/2021 7:40AM By MYESHA HARTMANN MD ; [facility] Modafinil 200 MG Oral Tablet 09/02/2021 - 10/03/2021 Provider: MYESHA HARTMANN MD Diagnosis: Circadian rhythm sleep disorder, shift work type One tablet daily Last Documented On 10/03/2021 3:15PM By MYESHA HARTMANN MD ; [facility] Levothyroxine Sodium 50 MCG Oral Tablet 08/30/2021 - 10/03/2021 Provider: MYESHA HARTMANN MD Diagnosis: Hypothyroidism, unspecified TAKE 1 TABLET BY MOUTH EVERY DAYSchedule Oct 2021 6m f/u Last Documented On 10/03/2021 3:15PM By MYESHA HARTMANN MD ; [facility] Testosterone 25 MG/2.5GM (1%) Transdermal Gel 08/22/2021 - 09/24/2021 Provider: MYESHA HARTMANN MD Diagnosis: Testicular dysfunction, unspecified APPLY 1 PACKET TWICE DAILY Last Documented On 09/24/2021 2:37PM By MYESHA HARTMANN MD ; [facility] Testosterone 25 MG/2.5GM (1%) Transdermal Gel 07/22/2021 - 08/22/2021 Provider: MYESHA HARTMANN MD Diagnosis: Testicular dysfunction, unspecified APPLY 1 PACKET TWICE DAILY Last Documented On 08/22/2021 1:36PM By MYESHA HARTMANN MD ; [facility] Sildenafil Citrate 100 MG Oral Tablet 05/16/2021 - 10/03/2021 Provider: MYESHA HARTMANN MD Diagnosis: Testicular dysfu nction, unspecified One tablet daily Last Documented On 10/03/2021 3:15PM By MYESHA HARTMANN MD ; [facility] Modafinil 200 MG Oral Tablet 05/16/2021 - 09/02/2021 Provider: MYESHA HARTMANN MD Diagnosis: Circadian rhythm sleep disorder, shift work type One tablet daily Last Documented On 09/02/2021 2:58PM By MYESHA HARTMANN MD ; [facility] Testosterone 25 MG/2.5GM (1% ) Transdermal Gel 01/16/2021 - 10/03/2021 Provider: MYESHA HARTMANN MD Diagnosis: APPLY ONE PACKET TO THE SKIN TWICE A DAY Last Documented On 2:52PM By RUSTY BURNS ; [facility] Ezetimibe 10 MG Oral Tablet 01/16/2021 - 05/16/2021 Provider: MYESHA HARTMANN MD Diagnosis: Hyperlipidemia, unspecified One tablet daily Last Documented On 4:45PM By RUSTY BURNS ; [facility] amLODIPine Besylate 5 MG Oral Tablet 01/16/2021 - 10/03/2021 Provider: MYESHA HARTMANN MD Diagnosis: Essential (prima ry) hypertension One tablet daily Last Documented On 10/03/2021 3:14PM By MYESHA HARTMANN MD ; [facility] Levothyroxine Sodium 50 MCG Oral Tablet 01/16/2021 - 08/30/2021 Provider: MYESHA HARTMANN MD Diagnosis: Hypothyroidism, unspecified One tablet daily Last Documented On 08/30/2021 8:03AM By MYESHA HARTMANN MD ; [facility] AndroGel 25 MG/2.5GM (1%) Transdermal 01/16/2021 - 07/22/2021 Provider: MYESHA HARTMANN MD Diagnosis: apply 1 packet 2xd Last Documented On 07/22/2021 7:57AM By MYESHA HARTMANN MD ; [facility] Levothyroxine Sodium 50 MCG Oral Tablet 11/29/2020 - 01/16/2021 Provider: MYESHA HARTMANN MD Diagnosis: Hypothyroidism, unspecified One tablet dailyCall/ schedule 6m follow-up Last Documented On 01/16/2021 10:59AM By MYESHA HARTMANN MD ; [facility] Sildenafil Citrate 100 MG Oral Tablet 05/24/2020 - 05/16/2021 Provider: MYESHA HARTMANN MD Diagnosis: Testicular dysfu nction, unspecified One tablet daily Last Documented On 05/16/2021 5:29PM By MYESHA HARTMANN MD ; [facility] Testosterone 25 MG/2.5GM (1%) Transdermal Gel 05/21/2020 - 01/16/2021 Provider: MYESHA HARTMANN MD Diagnosis: Testicular dysfunction, unspecified APPLY ONE PACKET TO THE SKIN TWICE A DAY Last Documented On 01/16/2021 1:15PM By MYESHA HARTMANN MD ; [facility] Testosterone 25 MG/2.5GM (1%) Transdermal Gel 05/21/2020 - 05/21/2020 Provider: MYESHA HARTMANN MD Diagnosis: Testicular dysfunction, unspecified APPLY ONE PACKET TO THE SKIN TWICE A DAY Last Documented On 05/21/2020 12:13PM By MYESHA HARTMANN MD ; [facility] Levothyroxine Sodium 50 MCG Oral Tablet 05/16/2020 - 11/29/2020 Provider: MYESHA HARTMANN MD Diagnosis: Hypothyroidism, unspecified TAKE 1 TABLET BY MOUTH EVERY DAY Last Documented On 11/29/2020 1:22PM By MYESHA HARTMANN MD ; [facility] Testosterone 25 MG/2.5GM (1%) Transdermal Gel 01/04/2020 - 05/21/2020 Provider: MYESHA HARTMANN MD Diagnosis: Testicular dysfunction, unspecified APPLY ONE PACKET TO THE SKIN TWICE A DAY Last Documented On 05/21/2020 11:55AM By MYESHA HARTMANN MD ; [facility] Sildenafil Citrate 20 MG Oral Tablet 11/30/2019 - 05/16/2021 Provider: MYESHA HARTMANN MD Diagnosis: Male erectile dysfunction, unspecified 1-5 po qd prn Last Documented On 4:38PM By RUSTY PEDRAZA Homer ; [facility] Levothyroxine Sodium 50 MCG Oral Tablet 11/30/2019 - 05/16/2020 Provider: MYESHA HARTMANN MD Diagnosis: Hypothyroidism, unspecified One tablet daily Last Documented On 05/16/2020 5:43PM By MYESHA HARTMANN MD ; [facility] AndroGel 25 MG/2.5GM (1%) Transdermal 11/30/2019 - 01/16/2021 Provider: MYESHA HARTMANN MD Diagnosis: Testicular dysfu nction, unspecified apply 1 packet 2xd Last Documented On 01/16/2021 10:59AM By MYESHA HARTMANN MD ; [facility] Sildenafil Citrate 20 MG Oral Tablet 06/26/2019 - 11/30/2019 Provider: MYESHA HARTMANN MD Diagnosis: Male erectile dysfunction, unspecified 1-5 po qd prn Last Documented On 11/30/2019 5:11PM By MYESHA HARTMANN MD ; [facility] Levothyroxine Sodium 50 MCG Oral Tablet 06/26/2019 - 11/30/2019 Provider: MYESHA HARTMANN MD Diagnosis: Hypothyroidism, unspecified One tablet daily Last Documented On 11/30/2019 5:11PM By MYESHA HARTMANN MD ; [facility] Ibuprofen 600 MG Oral Tablet 06/26/2019 - 05/08/2022 Provider: MYESHA HARTMANN MD Diagnosis: Primary generali zed (osteo)arthritis One tablet three times a day w meals prn Last Documented On 05/08/2022 3:13PM By MYESHA HARTMANN MD ; [facility] amLODIPine Besylate 5 MG Oral Tablet 06/26/2019 - 11/30/2019 Provider: MYESHA HARTMANN MD Diagnosis: Essential (prima ry) hypertension One tablet daily Last Documented On 0 4:36PM By Blanche Bo [facility] ; [facility] AndroGel 25 MG/2.5GM (1%) Transdermal 06/26/2019 - 11/30/2019 Provider: MYESHA HARTMANN MD Diagnosis: Testicular dysfu nction, unspecified apply 1 packet 2xd Last Documented On 11/30/2019 5:11PM By MYESHA HARTMANN MD ; [facility] Testosterone Cypionate 200 MG/ML Intramuscular Solution 02/24/2019 - 12/06/2019 Provider: MYESHA HARTMANN MD Diagnosis: Testicular dysfunction, unspecified inj 1ml IM wkly Last Documented On 0 8:31AM By KRZYSZTOF AGUILA Homer ; [facility] Levothyroxine Sodium 50 MCG Oral Tablet 02/24/2019 - 06/26/2019 Provider: MYESHA HARTMANN MD Diagnosis: Hypothyroidism, unspecified One tablet daily Last Documented On 06/26/2019 11:18AM By MYESHA HARTMANN MD ; [facility] Sildenafil Citrate 20 MG Oral Tablet 02/06/2019 - 06/26/2019 Provider: MYESHA HARTMANN MD Diagnosis: Male erectile dysfunction, unspecified 1-5 po qd prn Last Documented On 06/26/2019 11:18AM By MYESHA HARTMANN MD ; [facility] Ibuprofen 600 MG Oral Tablet 02/06/2019 - 06/26/2019 Provider: MYESHA HARTMANN MD Diagnosis: Primary generali zed (osteo)arthritis One tablet three times a day w meals prn Last Documented On 06/26/2019 11:18AM By MYESHA HARTMANN MD ; [facility] Levothyroxine Sodium 50 MCG Oral Tablet 12/21/2018 - 02/24/2019 Provider: MYESHA HARTMANN MD Diagnosis: Hypothyroidism, unspecified One tablet daily Last Documented On 02/24/2019 2:14PM By MYESAH HARTMANN MD ; [facility] Levoxyl 50 MCG Oral Tablet 12/20/2018 - 02/06/2019 Provider: MYESHA HARTMANN MD Diagnosis: Hypothyroidism, unspecified One tablet daily Last Documented On 02/06/2019 10:21AM By NABEEL GALINDO Homer ; [facility] AndroGel 25 MG/2.5GM (1%) Transdermal 12/19/2018 - Provider: Diagnosis: Last Documented On 02/06/2019 10:20AM By NABEEL BURNS ; [facility] amLODIPine Besylate 5 MG Oral Tablet 12/19/2018 - 06/26/2019 Provider: MYESHA HARTMANN MD Diagnosis: Essential (prima ry) hypertension One tablet daily Last Documented On 06/26/2019 11:18AM By MYESHA HARTMANN MD ; [facility] AndroGel 25 MG/2.5GM (1%) Transdermal 12/19/2018 - 06/26/2019 Provider: MYESHA HARTMANN MD Diagnosis: Testicular dysfu nction, unspecified apply 1 packet 2xd Last Documented On 06/26/2019 11:18AM By MYESHA HARTMANN MD ; [facility] Medications Administered Includes: Administered Medications in patient's chart Medications Administered Diagnosis Date Pro vider Depo-Testosterone 200 MG/ML IM SOLN 03/13 LAINE TOLEDO MD Last Documented On 9 11:14AM By RUSTY PEDRAZA Homer ; [facility] Testosterone Cypionate 200 MG/ML IJ SOLN 06/26/2019 MYESHA HARTMANN MD Last Documented On 0 11:40AM By NABEEL BURNS ; [facility] Testosterone Cypionate 200 MG/ML IJ SOLN Testicular dysfunction, unspecified 06/12/2019 CORY LUNA [facility] Rt Deltoid IM Last Documented On 0 11:54AM By GREG PATTERSON Homer ; [facility] Testosterone Cypionate 200 MG/ML IM SOLN Testicular dysfunction, unspecified 05/29/2019 LUCIO TAY [facility] Last Documented On 0 10:44AM By Kinsey Pandya MA ; [facility] Testosterone Cypionate 200 MG/ML IM SOLN 05/17/2019 CORY LUNA [facility] Last Documented On 0 2:08PM By KENAN FLOOD Homer ; [facility] Testosterone Cypionate 200 MG/ML IM SOLN 05/08/2019 MYESHA HARTMANN MD Last Documented On 0 2:14PM By NABEEL GALINDO A ; [facility] Testosterone Cypionate 200 MG/ML IJ SOLN 04/25/2019 HUMBERTO ZAMARRIPA [facility]-BC Last Documented On 0 7:30PM By Claudia Farooq A ; [facility] Testosterone Cypionate 200 MG/ML IJ SOLN Testicular dysfunction, unspecified 04/18/2019 LUCIO Hall TAY [facility] Rt glut IM Last Documented On 0 10:02AM By GREG PATTERSON A ; [facility] Testosterone Cypionate 200 MG/ML IM SOLN 04/11/2019 CORY LUNA [facility] Last Documented On 0 2:14PM By KENAN FLOOD Homer ; [facility] Testosterone Cypionate 200 MG/ML IM SOLN Testicular dysfunction, unspecified 04/04/2019 LUCIO Hall TAY [facility] Patient tolerated injection well Last Documented On 0 9:46AM By VALORIE DAO Homer ; [facility] Testosterone Cypionate 200 MG/ML IM SOLN Testicular dysfunction, unspecified 03/27/2019 CORY LUNA [facility] Last Documented On 0 2:01PM By GLADYS VIRGEN A ; [facility] Vital Signs Includes: Vital Signs from 04/13/2023 through 04/13/2024 Vital Name 09/07/2023 08:37A 08/10/2023 09:42A 06/29/2023 10:49A 06/23/2023 05:15P 06/10/2023 02:07P Blood Pressure Sitting L 130/84 142/80 BP Cuff Size Regular Regular Large Regular Pulse Rate-Sitting (bpm) 79 89 78 Respiration Rate (breaths/min) 20 18 18 Temp-Temporal 97.5 97.7 97.5 Height (in) 71 71 71 71 Weight (lb) 203.4 211 211.2 205 Body Mass Index 28.4 29.4 29.5 28.6 Body Surface Area 2.1 2.2 2.2 2.1 Oxygen Saturation (%) 98 94 97 97 Blood Pressure Sitting R 140/90 Pulse Rhythm Regular Temp-Oral (F) 98.2 Pain Level 9 Blood Pressure Sitting (mmHg) 142/70 Last Documented: On 09/07/2023 8:36AM ; [facility] On 08/10/2023 9:42AM ; [facility] On 06/29/2023 10:49AM ; [facility] On 06/23/2023 5:16PM ; [facility] On 06/10/2023 2:06PM ; [facility] Vital Name 06/10/2023 01:46P Pulse Rate-Sitting (bpm) 76 Height (in) 71 Weight (lb) 205.8 Body Mass Index 28.7 Body Surface Area 2.1 Oxygen Saturation (%) 97 Blood Pressure Sitting R 152/78 Last Documented: On 06/10/2023 1:49PM ; [facility] Results Includes: Results from 04/13/2023 through 04/13/2024 CBC WITH DIFF [facility] [place] Ordered by MYESHA Panda on 06/17/2023 [address] [facility], [place], [phone] Collected: 06/17/2023 Report ed: 06/17/2023 10:56 tel: Last Documented On 4 9:42PM ; [facility] Reviewed by MYESHA HARTMANN MD on 08/17/2023; All test results are final unless otherwise noted. ALC 1.8 None Last Documented On 4 8:35PM ; [facility] Note: Responsible Observer: ([place]) ANC 6.1 None Last Documented On 4 8:35PM ; [facility] Note: Responsible Observer: ([place]) BASO# 0.07 th/uL (0.00 - 0.20) None Last Documented On 4 8:35PM ; [facility] Note: Responsible Observer: ([place]) BASO% 0.8 % (0.0 - 2.0) None Last Documented On 4 8:35PM ; [facility] Note: Responsible Observer: ([place]) CBC WITH DIFF See Note None Last Documented On 4 8:35PM ; [facility] Note: CBC (COMPLETE BLOOD COUNT)Responsi ble Observer: ([place]) DIFF (Y/N) NO None Last Documented On 4 8:35PM ; [facility] Note: Responsible Observer: ([place]) EOS# 0.12 th/uL (0.00 - 0.45) None Last Documented On 4 8:35PM ; [facility] Note: Responsible Observer: ([place]) EOS% 1.4 % (0.0 - 9.0) None Last Documented On 4 8:35PM ; [facility] Note: Responsible Observer: ([place]) HCT 43.3 % (40.0 - 54.0) None Last Documented On 4 8:35PM ; [facility] Note: Responsible Observer: ([place]) HGB 13.5 g/dL (13.5 - 17.5) None Last Documented On 4 8:35PM ; [facility] Note: Responsible Observer: ([place]) IG# 0.05 th/ul (0.00 - 0.10) None Last Documented On 4 8:35PM ; [facility] Note: Responsible Observer: ([place]) IG% 0.6 % (0.0 - 0.5) H (High) Last Documented On 4 8:35PM ; [facility] Note: Responsible Observer: ([place]) LYMPH# 1.76 th/uL (1.00 - 4.80) None Last Documented On 4 8:35PM ; [facility] Note: Responsible Observer: ([place]) LYMPH% 20.3 % (14.0 - 45.0) None Last Documented On 4 8:35PM ; [facility] Note: Responsible Observer: ([place]) MCH 27.4 pg (25.0 - 35.0) None Last Documented On 4 8:35PM ; [facility] Note: Responsible Observer: ([place]) MCHC 31.2 g/dL (31.0 - 36.0) None Last Documented On 4 8:35PM ; [facility] Note: Responsible Observer: ([place]) MCV 88.0 fl (80.0 - 100) None Last Documented On 4 8:35PM ; [facility] Note: Responsible Observer: ([place]) MONO# 0.55 th/uL (0.00 - 0.80) None Last Documented On 4 8:35PM ; [facility] Note: Responsible Observer: ([place]) MONO% 6.3 % (1.0 - 10.0) None Last Documented On 4 8:35PM ; [facility] Note: Responsible Observer: ([place]) MPV 10.0 fl (6.0 - 11.0) None Last Documented On 4 8:35PM ; [facility] Note: Responsible Observer: ([place]) NEUT# 6.14 th/uL None Last Documented On 4 8:35PM ; [facility] Note: Responsible Observer: ([place]) NEUT% 70.6 % (45.0 - 76.0) None Last Documented On 4 8:35PM ; [facility] Note: Responsible Observer: ([place]) NRBC% 0.0 % (0.0 - 0.0) None Last Documented On 4 8:35PM ; [facility] Note: Responsible Observer: ([place]) PLT 293 th/uL (150 - 400) None Last Documented On 4 8:35PM ; [facility] Note: Responsible Observer: ([place]) RBC 4.92 mil/uL (4.50 - 5.90) None Last Documented On 4 8:35PM ; [facility] Note: Responsible Observer: ([place]) RDW 13.6 % (11.0 - 16.0) None Last Documented On 4 8:35PM ; [facility] Note: Responsible Observer: ([place]) WBC 8.7 th/uL (4.5 - 11.0) None Last Documented On 4 8:35PM ; [facility] Note: Responsible Observer: ([place]) CMP [facility] [place] Ordered by MYESHA Panda on 06/17/[address] [place] [address], [phone] Collected: 06/17/2023 Report ed: 06/17/2023 11:54 tel: Last Documented On 4 9:42PM ; [facility] Reviewed by MYESHA HARTMANN MD on 08/17/2023; All test results are final unless otherwise noted. A/G RATIO 1.6 (1.1 - 2.2) None Last Documented On 4 8:35PM ; [facility] Note: eGFR INTERPRETATION AGE AVG GFR 2 0-29 116 ml/min/1.73 m2 30-39 107 ml/min/1.73 m2 40-49 99 ml/min/1.73 m2 50-59 93 ml/min/1.73 m2 60-69 85 ml/min/1.73 m2 70+ 75 ml/min/1.73 m2 Chronic Kidney Disease-Less than 60 ml/min Kidney Failure-Less than 15 ml/min eGFR not calculated on patients <18 due to calculation differences. Please see the website below for the pediatric GFR calculator. https://www.kidney.org/professionals/kdoqi/gfr_calculatorped Responsible Observer: (ARC) AGE 62 YEARS None Last Documented On 4 8:35PM ; [facility] Note: Responsible Observer: (ARC) ALBUMIN 4.2 g/dL (3.4 - 4.8) None Last Documented On 4 8:35PM ; [facility] Note: Responsible Observer: (ARC) ALK PHOS 91 IU/L (40 - 150) None Last Documented On 4 8:35PM ; [facility] Note: Responsible Observer: (ARC) ALT (SGPT) 25 IU/L (0 - 55) None Last Documented On 4 8:35PM ; [facility] Note: Responsible Observer: (ARC) ANION GAP 16.3 mmol/L (8.0 - 16.0) H (High) Last Documented On 4 8:35PM ; [facility] Note: Responsible Observer: (ARC) AST (SGOT) 22 IU/L (5 - 34) None Last Documented On 4 8:35PM ; [facility] Note: Responsible Observer: (ARC) BILIRUBIN TOT 0.4 mg/dL (0.2 - 1.0) None Last Documented On 4 8:35PM ; [facility] Note: Responsible Observer: (ARC) BUN 24 mg/dL (9 - 20) H (High) Last Documented On 4 8:35PM ; [facility] Note: Responsible Observer: (ARC) CALCIUM 9.9 mg/dL (8.9 - 10.0) None Last Documented On 4 8:35PM ; [facility] Note: Responsible Observer: (ARC) CHLORIDE 104 mmol/L (98 - 107) None Last Documented On 4 8:35PM ; [facility] Note: Responsible Observer: (ARC) CMP See Note None Last Documented On 4 8:35PM ; [facility] Note: COMPREHENSIVE METABOLIC PANELRespo nsible Observer: (ARC) CREATININE 0.9 mg/dL (0.8 - 1.5) None Last Documented On 4 8:35PM ; [facility] Note: Responsible Observer: (ARC) eGFR 95 mL/min None Last Documented On 4 8:35PM ; [facility] Note: Responsible Observer: (ARC) GLOBULIN 2.7 g/dl (2.0 - 4.2) None Last Documented On 4 8:35PM ; [facility] Note: Responsible Observer: (ARC) GLUCOSE 121 mg/dL (70 - 105) H (High) Last Documented On 4 8:35PM ; [facility] Note: Responsible Observer: (ARC) POTASSIUM 5.3 mmol/L (3.6 - 5.0) H (High) Last Documented On 4 8:35PM ; [facility] Note: Responsible Observer: (ARC) SODIUM 141 mmol/L (137 - 145) None Last Documented On 4 8:35PM ; [facility] Note: Responsible Observer: (ARC) TCO2 26.0 mmol/L (22.0 - 30.0) None Last Documented On 4 8:35PM ; [facility] Note: Responsible Observer: (ARC) TOTAL PROTEIN 6.9 g/dL (6.4 - 8.3) None Last Documented On 4 8:35PM ; [facility] Note: Responsible Observer: (ARC) Reported Physicians [facility] [place] Ordered by MYESHA HARTMANN MD on [address] [facility], [place], [address] Collected: 06/17/2023 Report ed: 06/17/2023 11:54 tel: Last Documented On 4 9:42PM ; [facility] Reviewed by MYESHA HARTMANN MD on 08/17/2023; All test results are final unless otherwise noted. Reported Physicians See Note None Last Documented On 08/17/2023 8:35PM ; [facility] Note: Reported Physicians:Ordering: Myesha HartmannAttending: MYESHA HARTMANNConsulting: MYESHA HARTMANN History of Present Illness History of Present Illness not supported for this document type No History of Present Illness Recorded Social History Description Last Updated Not a current smoker 06/10/2023 Last Documented On 4 3:18PM ; [facility] Consuming 5 or more drinks per day None 06/10/2023 Last Documented On 4 3:18PM ; [facility] Not recovering alcoholic 06/10/2023 Last Documented On 4 3:18PM ; [facility] Not recovering from substance abuse 05/21 Last Documented On 4 3:18PM ; [facility] Number of times used recreat ional drug/ prescription drug for nonmedical reason. None 06/10/2023 Last Documented On 4 3:18PM ; [facility] No recent change in sleep 01/21/2023 Last Documented On 3 11:38AM ; [facility] Alcohol 01/21/2023 Last Documented On 3 11:38AM ; [facility] Amount of alcohol per day: 1-2 3 Last Documented On 3 11:38AM ; [facility] Not using drugs 01/21/2023 Last Documented On 3 11:38AM ; [facility] Not a job-related injury 08/26/2022 Last Documented On 3 2:27PM ; [facility] Not using alcohol 05/08/2022 Last Documented On 3 3:33PM ; [facility] Former smoker 05/08/2022 Last Documented On 3 3:33PM ; [facility] Tobacco non-user 03/13/2021 Last Documented On 1 12:03PM ; [facility] Current nonsmoker 05/24/2020 Last Documented On 1 2:46PM ; [facility] Social history changed 11/30/2019 Last Documented On 0 5:30PM ; [facility] Non-smoker 11/30/2019 Last Documented On 0 5:30PM ; [facility] Smoking status : Never smoker 06/26/2019 Last Documented On 0 11:28AM ; [facility] No tobacco use 12/19/2018 Last Documented On 9 11:32AM ; [facility] Procedures and Surgical History Includes: Procedures from 04/13/2023 through 04/13/2024 Procedures Code Diagnosis Performing Provider Service Location Service Date REPAIR OF [address]IOR A[address] HERNIA, AND APPROACH< 3CM DEFECT 84238 Umbilical hernia without obstruction or gangrene CHARLOTTE BELLA MD [facility]-OP-TMR 08/02/2023 Last Documented On 4 8:32AM ; [facility] FEE (Signi/Sep Eval & Man) G0463 Umbilical hernia without obstruction or gangrene CHARLOTTE BELLA MD [facility] PB - TMR 06/29/2023 Last Documented On 4 3:07PM ; [facility] FEE (Signi/Sep Eval & Man) G0463 Spinal stenosis, lumbar region with neurogenic claudication, Radiculopathy, lumbosacral region, Other spondylosis, lumbosacral region, Vertebrogenic low back pain WILL FULLER MD [facility]-PB - WHT 06/23/2023 Last Documented On 4 3:07PM ; [facility] Surgical History Last Updated No Pacemaker 01/21/2023 Last Documented On 3 11:38AM ; [facility] Medical History Includes: Medical History in patient's chart Description Last Updated Blood pressure was high 01/21/2023 Last Documented On 3 11:38AM ; [facility] Hypertension 01/21/2023 Last Documented On 3 11:38AM ; [facility] No exposure to a contagious disease 04/2022 Last Documented On 3 11:38AM ; [facility] No previous psychiatric treatment 2022 Last Documented On 3 11:38AM ; [facility] Not taking OTC medications 01/21/2023 Last Documented On 3 11:38AM ; [facility] Taking medication for high blood pressur e 01/21/2023 Last Documented On 3 11:38AM ; [facility] CT/MRI [facility] dec 30 01/21/2023 Last Documented On 3 11:38AM ; [facility] Message/Acupressure 01/21/2023 Last Documented On 3 11:38AM ; [facility] Moderate to severe pain 01/21/2023 Last Documented On 3 11:38AM ; [facility] No Pain Pump 01/21/2023 Last Documented On 3 11:38AM ; [facility] No Spinal cord stimulator 01/21/2023 Last Documented On 3 11:38AM ; [facility] Please list all illnesses/co nditions you have been diagnosed with: Spinal stenosis. sciatica. bulging diskno spring on either foot right foot ortho issues 01/21/2023 Last Documented On 3 11:38AM ; [facility] Please list all surgeries: Foot surgery august 2022 [facility] [place] [address] henry 01/21/2023 Last Documented On 3 11:38AM ; [facility] X-rays [facility] dr hartmann referred xray nov 2022 01/21/2023 Last Documented On 3 11:38AM ; [facility] History of colonoscopy fiberoptic was pe rformed 11/25/2022 12/09/2022 Last Documented On 3 9:59PM ; [facility] History of hyperlipidemia 02/06/2019 Last Documented On 9 10:59AM ; [facility] History of essential hypertension 2018 Last Documented On 9 11:32AM ; [facility] No recent change in medical history 11/22 Last Documented On 9 11:32AM ; [facility] Family History Includes: Family History in patient's chart No Family History Recorded Review of Systems Review of Systems not supported for this document type No Review of Systems Recorded Mental Status No Mental Status Recorded Functional Status No Functional Status Recorded Physical Exam Physical Exam not supported for this document type No Physical Exam Recorded Immunizations Includes: Immunizations in patient's chart Vaccine Dose # Date Site Reaction(s) Status Source COVID-19 Pfizer 1 1 Left Deltoid Complete (Reported) Patient Last Documented On 06/11/2020 2:19PM ; [facility] Note: [facility] COVID-19 Pfizer 2 1 Left Deltoid Complete (Reported) Patient Last Documented On 06/25/2020 9:31AM ; [facility] Note: [facility] Influenza (Quadrivalent) PF 0.5ml 1 9 Right Deltoid Complete (Administered ) [facility] Last Documented On 9 11:14AM ; [facility] Influenza (Quadrivalent) PF 0.5ml 2 01/16/2021 Left Deltoid Complete (Administered) [facility] Last Documented On 1 11:11AM ; [facility] Influenza (Quadrivalent)36 mo.& older PF 0.5ml (SD) 1 03/02/2022 Left Deltoid Complete (R eported) Patient Last Documented On 2 11:32AM ; [facility] Pfizer-BioNTech COVID-19 Vaccine 1 04/15/2021 Left Deltoid Complete (Reported) Patien t Last Documented On 2 11:31AM ; [facility] Pfizer-BioNTech COVID-19 Vaccine 2 08/12/2021 Left Deltoid Complete (Reported) Patien t Last Documented On 2 11:31AM ; [facility] Shingrix (Shingles) 1 03/03/2022 Right Deltoid Com plete (Reported) Patient Last Documented On 11:32AM ; [facility] Allergies Includes: Active, inactive, and resolved Allergies No Known Allergies Encounters Includes: Encounters from 04/13/2023 through 04/13/2024 Encounter Provider Location Date Check-In Time Check-Out Time Diagnosis * PHONE CALL WILL FULLER MD [facility] 024 09/07/2023 8:45AM 09/07/2023 11:59PM FOLLOW UP CHARLOTTE BELLA MD [facility] 024 8:28AM 8:43AM Postoperative Exam FOLLOW [facility] 9:25AM 9:43AM Postoperative Exam SURGERY IN HOSPITAL CHARLOTTE BELLA MD [facility] R 024 08/10/2023 8:32AM 08/10/2023 11:59PM [Patient Encounter] CHARLOTTE BELLA MD [facility] 024 06/23/2023 11:09AM 06/29/2023 11:59PM FOLLOW UP CHARLOTTE BELLA MD [facility] 024 06/23/2023 10:45AM 11:32AM Umbilical Hernia Reducible PAIN MANAGEMENT FOLLOW UP WILL FULLER MD [facility] 024 4:28PM 5:49PM Spinal Stenosis Lumbar with Neurogenic Claudication,Spon dylosis Lumbosacral Region,Radiculopa thy of Lumbosacral Region,Dorsopathy Low Back Pain Vertebrogenic CHECK UP MYESHA HARTMANN MD [facility]-MD 024 1:44PM 2:35PM Osteoarthritis Primary Generalized,Essen tial Hypertension,Hypo thyroidism,Hyperl ipidemia,Sleep Disorder Hypersomnia,Limb Pain Lower Leg,Hypogonadism * PHONE CALL WILL FULLER MD 024 03/31/2023 3:56PM 03/31/2023 11:59PM [Patient Encounter] WILL FULLER MD 024 03/31/2023 11:14AM 03/31/2023 11:59PM * PHONE CALL MYESHA HARTMANN MD 024 03/31/2023 1:35PM 03/31/2023 11:59PM [Patient Encounter] WILL FULLER MD 024 03/31/2023 5:24PM 03/31/2023 11:59PM * PHONE CALL MYESHA HARTMANN MD 024 03/31/2023 8:17AM 03/31/2023 11:59PM Insurance Includes: Active Insurance Policies Plan Name Member ID Group # Subscriber Relationship Effect sally Dates 1 - [employer] [id number] SHAKA CLIFFORD Self Clinical Notes Includes: Signed Clinical Notes starting from 04/10/2022 * Progress note Date Encounter Last Documented by 09/07/2023 FOLLOW UP Last documented on 09/07/2023; 1:11 PM, CHARLOTTE BELLA MD; [facility] Top of Document This document represents the [...] Chief Complaint The Chief Complaint is: Follow up. History of Present Illness SHAKA CLIFFORD is a 62 year old male. - Allergy list reviewed - Medication list reviewed Mr Clifford is a 61 year old male who presents for a colonoscopy. His last was about 10 years ago in [place], and showed a few small polyps. He [...] well, and is having regular bowel movements. He returns today doing very well. He denies any new complaints. He denies an abdominal pain, nausea, or vomiting. He is tolerating a regular diet well and is having regular bowel movements. Current [...] list all surgeries: Foot [facility] 2022 [facility] [facility] [place] [facility]ry. Medical: No previous psychiatric treatment. Moderate to severe pain and Hypertension. No Spinal cord stimulator and no Pain Pump. Surgical / Procedural: No Pacemaker. Medications: Taking medication for high blood pressure. Not taking OTC medications. Tests: Blood pressure was high, X-rays [facility] dr hartmann referred xray nov 2022, and CT/MRI [facility] jan 18. Exposure: No exposure to a contagious disease. Other: Diagnostic fiberoptic colonoscopy 11/25/2022 Diagnoses: Essential hypertension. Hyperlipidemia Previous Therapy - Did not receive dose of pneumococcal vaccine Social History Social history changed. Behavioral: Amount [...] No convulsions. Physical Findings - Vitals taken 09/07/2023 08:37 am BP-Sitting L 130/84 mmHg BP Cuff Size Regular Pulse Rate-Sitting 79 bpm Respiration Rate 20 per min Temp-Temporal 97.5 F Height 71 in Weight 203 lbs 6.4 oz Body Mass Index 28.4 kg/m2 Body Surface Area 2.1 m2 Oxygen Saturation 98 % General Appearance: - Well developed. - Well nourished. - In no acute distress. Eyes: General/bilateral: Pupils: - PERRLA. Lungs: - Clear to auscultation. - No wheezing was heard. Cardiovascular: Heart Rate And Rhythm: - Normal. Abdomen: Auscultation: - Bowel sounds were normal soft, Nt, NBd, +BS, no rebound or guarding. All incisions are well healed and there is no recurrence of the hernia. Palpation: - Abdominal non-tender. Skin: - Normal. Assessment - [Z01.818 - Encounter for other preprocedural examination] Postoperative exam Plan He is doing very well. For the hernia, he can follow up on a prn basis. He is to follow up for a colonoscopy in 3 years or sooner if needed. Practice Management No influenza immunization. Health Reminders - Assess Blood Pressure satisfied 09/07/2023. - Assess Need for CT Lung Screen satisfied 09/07/2023. - Assess Tobacco Use satisfied 09/07/2023. - Colorectal Cancer Screening satisfied 11/25/2022. - Flu Shot satisfied 09/07/2023. * Progress note Date Encounter Last Documented by 08/10/2023 FOLLOW UP Last documented on 08/10/2023; 4:26 PM, CHARLOTTE BELLA MD; [facility] Top of Document This document represents the [...] last was about 10 years ago in [place], and showed a few small polyps. He [...] list all surgeries: Foot surgery august 2022 [facility] [place] [facility]. Medical: No previous psychiatric treatment. Moderate to severe pain and Hypertension. No Spinal cord stimulator and no Pain Pump. Surgical / Procedural: No Pacemaker. Medications: Taking medication for high blood pressure. Not taking OTC medications. Tests: Blood pressure was high, X-rays [facility] dr hartmann referred xray nov 2022, and CT/MRI [facility] jan 18. Exposure: No exposure to a [...] 08/10/2023. - Colorectal Cancer Screening satisfied 11/25/2022. * Progress note Date Encounter Last Documented by 06/29/2023 FOLLOW UP Last documented on 06/29/2023; 11:56 AM, CHARLOTTE BELLA MD; [facility] Top of Document This document represents the [...] Dysfunction Chief Complaint The Chief Complaint is: Consultation for hernia repair. History of Present Illness SHAKA CLIFFORD is a 62 year old male. - Allergy list reviewed - Medication list reviewed Mr Clifford is a 61 year old male who presents for a colonoscopy. His last was about 10 years ago in [place], and showed a few small polyps. He [...] He denies abdominal pain, nausea, and vomiting. Current Medication - Fluticasone Propionate 50 MCG/ACT [...] refills - Pregabalin 75 MG Oral Capsule Take 1 cap PO Q 12 hours, 30 days, 0 refills - SB Low Dose ASA EC [...] list all surgeries: Foot surgery august 2022 [facility] [place] [facility]. Medical: No previous psychiatric treatment. Moderate to severe pain and Hypertension. No Spinal cord stimulator and no Pain Pump. Surgical / Procedural: No Pacemaker. Medications: Taking medication for high blood pressure. Not taking OTC medications. Tests: Blood pressure was high, X-rays [facility] dr hartmann referred xray nov 2022, and CT/MRI [facility] jan 18. Exposure: No exposure to a contagious disease. Other: Diaignostic fiberoptic colonoscopy 11/25/2022 Diagnoses: Essential hypertension. Hyperlipidemia [...] No convulsions. Physical Findings - Vitals taken 06/29/2023 10:49 am BP-Sitting L 142/80 mmHg BP Cuff Size Large Pulse Rate-Sitting 89 bpm Respiration Rate 18 per min Temp-Temporal 97.5 F Height 71 in Weight 211 lbs 3.2 oz Body Mass Index 29.5 kg/m2 Body Surface Area 2.2 m2 Oxygen Saturation 97 % General Appearance: - Well developed. - Well nourished. - In no acute distress. Eyes: General/bilateral: Pupils: - PERRLA. Lungs: - Clear to auscultation. - No wheezing was heard. Cardiovascular: Heart Rate And Rhythm: - Normal. Abdomen: Auscultation: - Bowel sounds were normal soft, Nt, Nd, +BS, no rebound or guarding. There is a small reducible umbilical hernia noted. Palpation: - Abdominal non-tender. Skin: - Normal. Assessment - [K42.9 - Umbilical hernia without obstruction or gangrene] Reducible umbilical hernia Plan He has a small but symptomatic umbilical hernia. I recommended Laparoscopic Repair of the Umbilical Hernia to him. I went over risks and benefits of this with him which include but are not limited to bleeding, infection, damage to adjacent structures, need for further procedures, recurrence, and chronic pain. He understands and wishes to proceed. Health Reminders - Assess Blood Pressure satisfied 06/29/2023. - Assess Need for CT Lung Screen satisfied 06/29/2023. - Assess Tobacco Use satisfied 06/29/2023. - Colorectal Cancer Screening satisfied 11/25/2022. * Progress note Date Encounter Last Documented by 06/23/2023 PAIN MANAGEMENT FOLLOW UP Last d ocumented on 06/24/2023; 6:14 AM, WILL FULLER MD; [facility] Active Problems & Conditions - Encounter for immunization - Essential Hypertension - Hyperlipidemia - Hypothyroidism - Limb Pain Lower Leg - right - Osteoarthritis Primary Generalized - Sleep Disorder Hypersomnia - Testicular Dysfunction Chief Complaint The Chief Complaint is: RT L3-4 L4-5 TFESI DONE ON 05-26-2023 FEEL LIKE MOBILITY IS BETTER HE IS STIFFER. NO CHANGES TO THE PAIN. PT IS NOT FIXED DENIAL ON THE MILD PROCEDURE. History of Present Illness PHQ-9 Score: 0 Date:11-20-22 SOAPP-R Score: 11 Date:01-21-23 Oswestry Score: 48 Date:01-21-23 Pain Location: RT BUTTOCK RT LOWER BACK RT HIP SHINS FOOT ALL RT SIDE Quality: SHARP, TINGLING NUMBNESS, WEAKNESS Radiation: RT SIDE LEGS Severity: MODERATE TO SEVERE Timing: ALL DAY LONG Associated Sx: Aggravating Factors:WALKING, SLEEPING, LIFTING, BENDING, IN AND OUT OF CARE UP DOWN STAIRS Alleviating Factors:REPOSITIONING LEANING FORWARD, SITTING CELEBREX DOES NOT HELP, SALONPAS Past Tx: IBUPROFEN 600 MG,MRI DONE AT [facility]. REFERRED TO NEUROSURGEON, 50-60% reduction in Right leg pain following right-sided L3 - 4, L4 - 5 transforaminal epidural steroid injection SHAKA CLIFFORD is a 62 year old male. - Allergy list reviewed - Allergy list reviewed - Problem list reviewed - Medication reconciliation performed - Medication list reviewed - Last dose of medication? - Pain is continuous - Primary pain location Right hip shins & foot - Primary pain duration 24/7 - Secondary pain duration Right foot - Secondary pain location Right jimenez - Pain is throbbing - Pain is dull, aching - Pain is shooting - Pain is sharp - Pain is pressure like - Pain is described as numbness - Pain is described as tingling - Pain is deep - Pain is like pins/needles - Relieved by medication - Relieved by massage - Relieved by touch/rub - Pain aggravated getting in/out of car - Pain aggravated going down stairs - Pain aggravated going up stairs - Pain aggravated lying down - Pain aggravated sitting - Pain aggravated standing - Pain aggravated when out of chair - Pain aggravated by walking - Pain aggravated lifting - Pain aggravated by working - Pain aggravated by sex - Abdominal pain radiates to right side - Pain radiates in both hands - Pain radiating in the right thigh - Pain radiates in right foot Discussion:Patient returns in delayed follow-up after undergoing repeat steroid injections. We been having a difficult time with his insurance obtained appropriate authorization for medically necessary treatment to address is progressive and disabling low back and lower extremity symptoms secondary to significant central canal and foraminal stenosis as well as vertebrogenic pain related to Modic endplate change noted on MRI. He has failed to respond significantly to repeat epidural injection actually feels that his symptoms may have progressed. He is increasingly frustrated today over the lack of his insurance carriers authorization for the procedure he is interested in pursuing (minimally invasive lumbar decompression spent. He is not interested in open surgical decompression due to increased risk and delayed recovery time. He wishes to go with more minimally invasive options. However multiple appeals have been denied. He is frustrated over the amount of money he has spent and deductible over treatment that has yet to help him. Did reassure the patient that these treatments and imaging studies would've been prerequisites prior to any treatment over above what he is already done prior to presenting to our office. I did offer the patient surgical evaluation. Ironically, his insurance carrier would be more likely to approve open decompression through a neurosurgeon despite increased risk of adverse events such as infection, discitis, epidural hematoma, nerve injury or dural tear. Although he is willing to consider evaluation, he is not necessarily interested in open surgery. He is anticipating conversion to Medicare in October of this year and may simply choose to wait until this time in order to have access to medically necessary and appropriate care FDA approved for his condition and backed by decades of strong outcomes and safety data. Encouraged him to contact his insurance company to further discuss any additional appeal options he may have. He has indicated a desire to contact an employment attorney however I explained the patient that there is likely very little legal recourse this would potentially result in significant legal costs without much benefit. Certainly if surgeons recommend open decompression he wishes to proceed, pending insurance authorization, he can move forward. If he chooses to do so we can certainly see him back in his pain persists for experiences any additional or new symptoms. Otherwise he is doing well can certainly follow-up on as-needed basis. Otherwise we'll see him back in late October when she is converted to Medicare and try once more pain persists he is yet to pursue interventional therapies. Although the patient remains frustrated, he did seem more reassured time of his departure. We will hold off on consideration for Intracept procedure until he has converted to Medicare as I anticipate significant difficulties with preauthorization for this medically appropriate procedure as well. In the meantime will continue pregabalin as it is giving him some benefit. Should you wish to discontinue his medication he will call clinic [facility]. He does not need refills today Risks, benefits and alternatives to the above treatment strategies were discussed in detail the patient who indicated understanding and consent to proceed. Questions were elicited, asked and answered to the best of our ability to his satisfaction today. [place] prescription monitoring database was reviewed and found to be appropriate. PRIOR VISIT (03/31/23): Patient returns in follow-up after initiating pregabalin therapy. He is taking 75 mg twice daily with some improvement especially in pain with walking or prolonged standing. However is notice that when he twists at the waist [place] to the right to have increased right-sided buttock and thigh pain likely related to drug compression of the affected nerve roots. Alternatively, this may suggest a coexisting nociceptive source of pain which is facet arthropathy or sacroiliitis. Exam is less consistent with sacroiliitis. Regardless, he like to further increase his pregabalin to a target dose of 100 modems twice daily. He can use his current medications to do this starting by increasing to 3 times a day with the 75 million capsules and after 3 days if tolerated increase to 2 capsules twice daily for a target dose of 150 mg twice daily. When you nears completion of this prescription, we can then convert him if tolerated to the hundred 50 mg capsule, number 60. He like to repeat epidural injection to try to obtain additional relief. We will schedule right-sided L3 - 4, L4 - 5 transforaminal injection for additional symptomatic control. He also like to pursue minimally invasive lumbar decompression which is Burton been ordered. We will resubmit to his new insurance which was changed at the beginning of this year will see him back to 3 weeks after his repeat epidural injection is been completed for reevaluation. Will continue to monitor for preauthorization for vitamin this lumbar decompression for which he is excellent candidate. Risks, benefits and alternatives the above. Options were discussed in detail the patient who expressed explicit understanding and consent to proceed. Questions were elicited, asked and answered the best of our ability and to his satisfaction today. [place] prescription monitoring database was reviewed and found to be appropriate. PRIOR VISIT (02/25/23): Patient returns in follow-up after undergoing a trial of epidural steroid injections via the transforaminal approach at L4 - 5, L5 - S1. He to see partial response although significant. He has much reduced pain in the low back and lower extremities following the injection but continues to have pain in the right lower calf and jimenez. These symptoms worsen with standing or walking consistent with neurogenic claudication. We discussed with him minimally invasive lumbar decompression at the L3 - 4 and L4 - 5 levels given significant central canal stenosis with ligamentum flavum hypertrophy. He would like to proceed with this to help address residual symptoms. He has continued home exercises with limited response. He has been through multiple medications with minimal benefit. Physical therapy has not historically been effective for his symptoms. Given his ongoing pain and disability, limited ADLs and self-care activities and given his partial response to interventional therapies such as epidural steroid injections, he is a candidate for more definitive care including minimally invasive lumbar decompression. He is not interested in open surgery as he cannot afford take time off work or activities to accommodate an extended recovery. He like to proceed as discussed previously with ligamentum flavum debulking via the mild procedure. Patient does not wish to repeat epidural injections at this time. He would however be interested in starting a new medication help with residual symptoms until such time as the mild procedure can be approved. We will initiate pregabalin 75 mg dose. He can take this once prior to bed for one week and then increased to Q 12 hours as tolerated. We can further increase in their if necessary. He will watch for sedation, confusion, peripheral edema or rash Risks, benefits and alternatives the above treatment options were discussed in detail the patient who expressed explicit understanding and consent to proceed. Questions were elicited, asked and answered the best of our ability to his satisfaction today. [place] prescription monitoring database was reviewed and found to be appropriate. INITIAL VISIT (01/21/23): Patient is a pleasant although somewhat reluctant 62-year-old gentleman with a history of known lumbar spinal stenosis and lumbar spondylosis dating back to 2014. However he is been relatively asymptomatic until proxy one month ago. Without known injury or inciting event, he began to develop right-sided low back, buttock posterior thigh and calf lateral calf and dorsal foot pain with numbness and tingling worsen with standing and walking and improved with sitting although pain is also aggravated with prolonged sitting. Pain is also improved with leaning forward consistent with neurogenic claudication. Patient has been on prednisone, Celebrex and ibuprofen with minimal response. He cannot tolerate physical therapy. He was evaluated orthopedics he does not feel this is a hip or knee issue. He was has been referred to our office for consideration of epidural steroid injection. He is also been referred by his primary care doctor to a spinal surgeon for evaluation in the near future. MRI of the lumbosacral spine reveals multilevel spondylosis and stenosis greatest at the L3 - 4 and L4 - 5 levels with significant ligamentum flavum hypertrophy upwards of 8 mm resulting in moderate to severe central canal stenosis. Is also some evidence of scattered foraminal stenoses greatest at the L5 - S1 level bilaterally there is facet hypertrophy and arthropathy noted. No significant disc degeneration with disc space height loss and posterior disc protrusions also at multiple levels. There is evidence of invagination of the disc material into the superior and inferior endplates at L2 and L5 with surrounding Modic and play change consistent with acute/subacute inflammation as well as additional Modic endplate change at L3 and L4 possibly consistent with axial back pain. Patient notes about 50% distribution between his low back and right lower extremity. We discussed multiple options for management. Encouraged physical therapy release home exercises in the interim. He does not feel he can tolerate most activity that rebels weight-bearing or even prolonged sitting.This is despite being very active prior to the onset of his pain. Recommended a trial of right-sided L4 - 5, L5 - S1 transforaminal epidural steroid injection under fluoroscopic guidance for symptomatic control. Once under better control we consider the consider physical therapy. In addition, consider minimally invasive lumbar decompression for more definitive improvement at the bilateral L3 - 4 and L4 - 5 levels to decompress the most symptomatic and most effective levels. Although the patient has a proxy one month of aggravated pain, he is been minimally symptomatic over the past several years, which is worsened over time. Given the severity of the changes and his current limitation, be unable to obtain significant benefit in the immediate timeframe, he would benefit from decompression. He would prefer to avoid open decompression given the elevated risk and requirement for more prolonged recovery. As a result, we would offer her minimally invasive lumbar decompression as above to reduce symptoms related to neurogenic claudication and subsequent activity restrictions. Discussed the process and procedure at length as well as the small risk of complications and small risk of requiring more definitive decompression in the future. Patient is in agreement is willing to at least obtain preauthorization. Additional education information was provided the patient today. Risks, benefits and alternatives the above treatment options were discussed in detail the patient who expressed explicit understanding and consent to proceed. Questions were elicited, asked and answered the best of our ability and to his satisfaction today. [place] prescription monitoring database was reviewed and found to be appropriate. Patient is reluctant to consider any additional. Patient Imaging: All relevant imaging available was personally reviewed with the patient today with the following tests and results noted: MRI of the lumbar spine without contrast dated January 18, 2023: no evidence of vertebral fracture. Normal alignment. T 12 - L1 reveals small central disc herniation into the posterior superior endplate. This resulted minimal central canal stenosis. There is no significant neural foraminal narrowing. L1 - 2 level shows small right to foraminal disc protrusion which partially faces the right lateral recess but does not definitively contact the adjacent nerve roots. There is minimal asymmetric central canal stenosis with no significant neural foraminal narrowing. L2 - 3 there is a small circumferential disc bulge with mild facet arthrosis. There is mild ligamentum flavum hypertrophy measuring up to 8 mm. These contribute to mild central canal stenosis. There is minimal left neural foraminal narrowing. L3 - 4 level shows small circumferential disc bulge with mild facet arthrosis. There is ligamentum flavum hypertrophy measuring update millimeters contributing to moderate trefoil central canal stenosis with AP central canal measuring up to 6 mm. There is minimal left neural foraminal narrowing. L4 - 5 level shows circumferential disc bulge with moderate facet arthrosis. This in combination with ligamentum flavum hypertrophy results in severe central canal stenosis with moderate right and mild left neural foraminal narrowing. L5 S1 level shows no disc herniation. There is moderate facet arthrosis with fluid the facet joints. There is mild bilateral neural foraminal narrowing. There is no significant central canal stenosis. Lumbar spine x-ray dated 12/21/22: moderate multilevel incher vertebral disc space height loss with anterior endplate osteophytes most notable at L3 - 4. Moderate mid to lower lumbar facet arthrosis. Soft tissues normal. Right Hip x-ray dated : no fracture or dislocation. Preserved joint spaces. Normal radiographic appearance of the right hip. Current Medication - Fluticasone Propionate 50 MCG/ACT [...] refills - Pregabalin 75 MG Oral Capsule Take 1 cap PO Q 12 hours, 30 days, 0 refills - SB Low Dose ASA EC [...] list all surgeries: Foot surgery august 2022 [facility] [place] [facility]. Medical: No previous psychiatric treatment. Moderate to severe pain and Hypertension. No Spinal cord stimulator and no Pain Pump. Surgical / Procedural: No Pacemaker. Medications: Taking medication for high blood pressure. Not taking OTC medications. Tests: Blood pressure was high, X-rays [facility] dr hartmann referred xray nov 2022, and CT/MRI [facility] jan 18. Exposure: No exposure to a contagious disease. Other: Diaignostic fiberoptic colonoscopy 11/25/2022 Diagnoses: Essential hypertension. Hyperlipidemia [...] job-related injury. Allergies - No Known Allergies Family History Patient denies relevant family history. Review Of Systems Systemic: No systemic symptoms other then noted and no recent weight loss. Head: No head symptoms other then noted. Neck: No neck pain. Otolaryngeal: No otolaryngeal symptoms other than noted. Cardiovascular: No cardiovascular symptoms other than noted. Pulmonary: No pulmonary symptoms other than noted. Gastrointestinal: No difficulty chewing and no dysphagia. Genitourinary: No genitourinary symptoms other than noted. Urinary loss of control. Endocrine: No endocrine symptoms other than noted. Muscle weakness. Hematologic: No easy bleeding and no tendency for easy bruising. Musculoskeletal: No musculoskeletal symptoms other than noted. Back pain, muscle aches, muscle cramps, pain localized to one or more joints, and joint stiffness localized to one or more joints. Neurological: No neurological symptoms other than noted and no fainting passing out with needles or medical procedures. Ataxia and numbness. Psychological: No fear of falling and no sleep apnea. Skin: No skin symptoms other than noted. Past Medical: No fall. Physical Findings - Vitals taken 06/23/2023 05:15 pm BP-Sitting R 140/90 mmHg BP Cuff Size Regular Pulse Rate-Sitting 78 bpm Pulse Rhythm Regular Temp-Oral 98.2 F Height 71 in Weight 205 lbs Body Mass Index 28.6 kg/m2 Body Surface Area 2.1 m2 Pain Level 9 Oxygen Saturation 97 % Vital Signs: - Pain level by numeric rating scale 9. Musculoskeletal System: General/bilateral: Lumbar oswestry score: Value Lumbar oswestry score 34 Lumbar oswestry score 38 Lumbar oswestry score 48 Psychiatric: PHQ9 score:: Value PHQ9 score: 0 PHQ9 score: 2 HEENT: NC/AT. Anicteric. Clear Conjunctiva. PERRLA. MM's pink/moist. No lesions of nasal mucosa. No discharge via nares. No lesions of EAC. No discharge of EAC. No lesions of oropharynx. Oropharynx without erythema or exudate. Neck supple. No thyromegally. No palpable masses. No lymphadenopathy in cervical chain bilaterally. CVS: RRR. No murmurs. No gallops. No rubs. No peripheral edema. Peripheral pulses palpable in all extremities. Pulmonary: CTA bilaterally. No wheezes. No rales. No crackles. No rubs. Spine/MSK: Loss of normal lumbar lordosis. Minimal tenderness of the bilateral mid to lower lumbar facets/PSI S. Mildly positive lumbar facet loading maneuver bilaterally. Some axial lumbar pain with forward flexion/toe touch. Straight leg raise. Negative lateral and anterior pelvic compression test. Negative Gaenslen's maneuver belly. Negative Stinchfield maneuver bilaterally. Negative Mackenzie maneuver bilaterally. Negative thigh thrust maneuver bilaterally. Gait: Not antalgic. No steppage gait. No Trendelenburg gait. No circumspected gait pattern. Heel walk normal. Toe walk normal. Tandem gait normal. Neuro: Awake. Alert. Oriented x3. DTR's intact in all extremities. DTR's equal in all extremities. No focal neurologic deficit. Fhat-ow-uvbj normal bilaterally. Babinski downgoing. Psych: No apparent distress. Mood normal. Affect normal. No pain behaviors. Tests Educational Testing: Questionnaires PHQ-9: Value SOAPP-R: total score 11 Assessment - [M47.897 - Other spondylosis, lumbosacral region] Lumbosacral spondylosis - [M54.51 - Vertebrogenic low back pain] Vertebrogenic low back pain - [M48.062 - Spinal stenosis, lumbar region with neurogenic claudication] Lumbar stenosis with neurogenic claudication - [M54.17 - Radiculopathy, lumbosacral region] Lumbosacral radiculopathy Therapy - Pain radiates to the right side of buttocks. - Intervention and counseling on cessation of tobacco use. - Clinical summary provided to patient. Plan StartCited - Spinal stenosis, lumbar region with neurogenic claudication Referral: Neurosurgeon Instructions: Please evaluate need/candidacy for surgical decompression: right low back and lower extremity pain secondary to known lumbar spinal stenosis with radiculopathy and neurogenic claudication with failure to respond to physical therapy and epidural steroid injections. Consider lumbar decompression for central canal stenosis L2 through S1 greatest at L3 - 4 and L4 -5. EndCited Practice Management Use of tobacco assessment performed Review of medications documented; Standardized depression screening: negative for symptoms, for adult impression and score 0, and impression and score two. A total of [45] minutes were spent on this patient's evaluation, as above, with greater than 50% of this time spent in direct [id number] counseling and coordination of care. Results of this interaction were communicated directly to the patient's referring and/or primary care provider. All imaging studies and test results discussed in the above document were personally reviewed and evaluated by the performing provider. For all patients on acute or chronic opioids, ongoing need for opioid analgesia is assessed at each visit with consideration of discontinuation or wean to lowest effective dose when possible and appropriate. Contents of this document have been edited for correctness, but may be subject to typographical or event planning manager errors. Verify all diagnoses, medications, dosages, and patient instructions with patient and/or the originator of this document. Health Reminders - Assess Blood Pressure satisfied 06/23/2023. - Assess Need for CT Lung Screen satisfied 06/23/2023. - Assess Tobacco Use satisfied 06/23/2023. - Colorectal Cancer Screening satisfied 11/25/2022. - Depression Screening satisfied 06/23/2023. - Follow up plan for Depression Screening satisfied 06/23/2023. User Defined 25 Patient education about home safety plans for prevention of falls: Patient completed a Fall risk assesment and was provided fall risk education materials. * Progress note Date Encounter Last Documented by 06/10/2023 CHECK UP Last documented on 10/07/2023; 3:18 PM, MYESHA HARTMANN MD; [facility] Active Problems & Conditions - Z23 - Encounter for immunization - I10 - Essential Hypertension - Hyperlipidemia - E29.1 - Hypogonadism - E03.9 - Hypothyroidism - M79.661 - Limb Pain Lower Leg - right - M15.0 - Osteoarthritis Primary Generalized - G47.10 - Sleep Disorder Hypersomnia Chief Complaint The Chief Complaint is: Pt here for checkup, denises any new problems. Reason For Visit Visit for: f/u has 2 surgs coming up --hernia repair bty Dr Bella/decompression by Dr Fuller No cp pressure no f/c/s/n/v/d cv htn bp ch here high nl 140/80 ch at home running 125-133/70-80 3-4xwk recent cmp cited sttable lytes renal rech lipids intolerant of statin s recent cited OA prebaglin 75 bid helps off nsaids- add ibuprofen 600 tid hypogonad--low T on 2 pks daily prev cited rech recent psa cited bph cont w sp improved flow /flomax dec T4 stable on supp recent cited ar ns flonase works well . History of Present Illness SHAKA CLIFFORD is a 62 year old male. - Allergy list reviewed - Medication list reviewed - Feeling as well as can be expected - Nasal discharge watery - No cardiovascular symptoms - No chest pain or discomfort - No pulmonary symptoms - No gastrointestinal symptoms - Genitourinary symptoms noct x1-2 - Lower back pain -into RLE Current Medication - Fluticasone Propionate 50 MCG/ACT Nasal Suspension as directed 1 sq each nostril 1-2xd as needed, 30 days, 5 refills - Levothyroxine Sodium 50 MCG Oral Tablet TAKE 1 TABLET BY MOUTH EVERY DAY, 90 days, 1 refills - Modafinil 200 MG Oral Tablet TAKE 1 TABLET BY MOUTH EVERY DAY., 30 days, 0 refills - Pregabalin 75 MG Oral Capsule Take 1 cap PO Q 12 hours, 30 days, 0 refills - SB Low Dose ASA EC 81 MG Oral Tablet Delayed Release One tablet daily 0 days, 0 refills - Sildenafil Citrate 100 MG Oral Tablet One tablet daily, 90 days, 1 refills Past Medical/Surgical History Reported: No recent change in medical history, Message/Acupressure, Please list all illnesses/conditions you have been diagnosed with: Spinal stenosis. sciatica. bulging diskno spring on either foot right foot ortho issues, and Please list all surgeries: Foot surgery august 2022 [facility] [place] dr henry. Medical: Moderate to severe pain and Hypertension. Medications: Taking medication for high blood pressure. Tests: Blood pressure was high, X-rays [facility] dr hartmann referred xray nov 2022, and CT/MRI [facility] jan 18. Other: Diagnostic fiberoptic colonoscopy 11/25/2022 Diagnoses: Essential hypertension. Hyperlipidemia Social History Behavioral: Amount of alcohol per day: 1-2. Tobacco use: Not a current smoker. Former smoker, current nonsmoker, and non- smoker. Alcohol: Alcohol alcohol use six or more drinks per day 5 or more drinks per day None. Not recovering alcoholic. Drug Use: Not recovering from substance abuse. Number of times used recreational drug/ prescription drug for nonmedical reason. None. Allergies - No Known Allergies Review Of Systems Systemic: No fever and no chills. Recent weight gain. No night sweats. Edema feet and legs. Head: No headache. Neck: No neck pain. Otolaryngeal: Nasal discharge watery. Cardiovascular: No chest pain or discomfort. Pulmonary: No dyspnea and not expressed as feeling short of breath. No cough. Gastrointestinal: Normal appetite and no heartburn. No nausea and no constipation. Genitourinary: No dysuria. Musculoskeletal: Pain localized to one or more joints and joint stiffness as a chronic condition. Neurological: No dizziness. Ataxia. Psychological: No anxiety, no fear of falling, no depression, and no sleep disturbances. Past Medical: A fall in the past 6 months. A fall with injury and a fall was ten times in the past six (6) months. Physical Findings - Vitals taken 06/10/2023 01:46 pm BP-Sitting R 152/78 mmHg Pulse Rate-Sitting 76 bpm Height 71 in Weight 205 lbs 12.8 oz Body Mass Index 28.7 kg/m2 Body Surface Area 2.1 m2 Oxygen Saturation 97 % - Vitals taken 06/10/2023 02:07 pm BP-Sitting 142/70 mmHg General Appearance: - Well developed. - Well nourished. - In no acute distress. Neck: Thyroid: - Showed no abnormalities. Ears: General/bilateral: External Auditory Canal: - External auditory meatus normal. Nose: General/bilateral: Discharge: - Nasal discharge. - Rhinorrhea. Pharynx: Oropharynx: - Normal. Lungs: - Normal breath sounds/voice sounds. - No wheezing was heard. Cardiovascular: Heart Rate And Rhythm: - Normal. Abdomen: Auscultation: - Bowel sounds were normal. Palpation: - Abdominal non-tender. Assessment - Essential hypertension [I10 - Essential (primary) hypertension] - Hyperlipidemia [E78.5 - Hyperlipidemia, unspecified] - Hypothyroidism [E03.9 - Hypothyroidism, unspecified] - Hypogonadism [E29.1 - Testicular hypofunction] - Primary generalized osteoarthritis [M15.0 - Primary generalized (osteo)arthritis] - Hypersomnia [G47.10 - Hypersomnia, unspecified] - Pain in lower leg [M79.661 - Pain in right lower leg] Previous Tests - Test: LIPID PANEL Report Date: 11/30/2019 CHOL/HDLC 6.6 High CHOLESTEROL 262 mg/dL High HDL 40 mg/dL LDL 185 mg/dL High LIPID PANEL TRIGLYCERIDE 183 mg/dL High - Test: CBC WITH DIFF Report Date: 07/13/2022 ALC 1.6 ANC 5.3 BASO# 0.1 th/uL BASO% 1.0 % CBC WITH DIFF DIFF (Y/N) NO EOS# 0.18 th/uL EOS% 2.3 % HCT 43.5 % HGB 14.2 g/dL IG% 0.5 % LYMPH# 1.63 th/uL LYMPH% 21.1 % MCH 29.0 pg MCHC 32.6 g/dL MCV 89.0 fl MONO# 0.49 th/uL MONO% 6.3 % MPV 10.0 fl NEUT# 5.30 th/uL NEUT% 68.8 % NRBC% 0.0 % PLT 285 th/uL RBC 4.89 mil/uL RDW 13.3 % WBC 7.7 th/uL - Test: CMP Report Date: 07/13/2022 A/G RATIO 1.8 AGE 61 YEARS ALBUMIN 4.4 g/dL ALK PHOS 81 IU/L ALT (SGPT) 22 IU/L ANION GAP 12.4 mmol/L AST (SGOT) 15 IU/L BILIRUBIN TOT 0.3 mg/dL BUN 20 mg/dL CALCIUM 9.5 mg/dL CHLORIDE 105 mmol/L CMP CREATININE 0.9 mg/dL GFR Afr-Am 110 ml/min GFR Non-AfrAm 91 ml/min GLOBULIN 2.5 g/dl GLUCOSE 113 mg/dL High POTASSIUM 4.4 mmol/L SODIUM 138 mmol/L TCO2 25.0 mmol/L TOTAL PROTEIN 6.9 g/dL - Test: THYROID PANEL (TSH & FREE T4) Report Date: 11/13/2022 FREE T4 0.99 ng/dL TSH 2.8148 uIU/mL - Test: A1C HGB (GLYCO HEMOGLOBIN) Report Date: 11/13/2022 A1C HGB (GLYCO HEMOGLOBIN) Hgb A1c 6.2 % A1c High MBG 131 mg/dL High - Test: TESTOSTERONE, FREE AND TOTAL Report Date: 11/18/2022 TESTOSTERONE, TOTAL, MS 104 ng/dL Low TESTOSTERONE, FREE 11.7 pg/mL Low - Test: PSA SCREEN Report Date: 11/20/2022 PSA 1.5 ng/ml Therapy - Monitor Blood Pressure. - Reviewed & agreed to staff entries. - Regular exercise. - Controlled carbohydrate diet. - Intervention and counseling on cessation of tobacco use. - Plan of care reviewed and agreed to by the patient. Discussed Discussed lab test results with Patient. Plan StartCited - Allergic rhinitis due to pollen Fluticasone Propionate 50 MCG/ACT gram as directed 1 sq each nostril 1-2xd as needed, 30 days, 5 refills EndCited StartCited - Essential (primary) hypertension Lab: Comp Metabolic Panel EndCited StartCited - Hyperlipidemia, unspecified Lab: *CBC W/DIFF EndCited StartCited - Primary generalized (osteo)arthritis Ibuprofen 600 MG tablet One tablet three times a day w food, 30 days, 5 refills EndCited StartCited - Testicular dysfunction, unspecified Testosterone 25 MG/2.5GM (1%) gram APPLY TO CLEAN, INTACT SKIN TWICE DAILY, 30 days, 4 refills EndCited - CBC - Comprehensive metabolic panel /test f/t - Continue current medication - Follow-up visit September Practice Management Use of tobacco assessment performed and patient screened for future fall risk documentation of any fall with injury in past year Review of medications documented. Health Reminders - Assess Blood Pressure satisfied 06/10/2023. - Assess Need for CT Lung Screen satisfied 11/30/2019. - Assess Tobacco Use satisfied 06/10/2023. - Colorectal Cancer Screening satisfied 11/25/2022. * Progress note Date Encounter Last Documented by 05/19/2023 * PHONE CALL Last documented on 05/19/2023; 4:39 PM, WILL FULLER MD; [facility] Active Problems & Conditions - Encounter for immunization - Essential Hypertension - Hyperlipidemia - Hypothyroidism - Limb Pain Lower Leg - right - Osteoarthritis Primary Generalized - Sleep Disorder Hypersomnia - Testicular Dysfunction Chief Complaint Phone Call - Chief Concern: reason for call: Patient called into the office to report no relief with the Gabapentin after taking it for 3 weeks. Patient states Gabapentin did not work the first time he took it either. Patient would like to go back on the Pregabalin as this was working best for his pain. pt phone # for return call:[phone] date/initials: 05/19/23 MERCEDES PRYOR. Current Medication - Azithromycin 500 MG Oral Tablet One tablet daily, 5 days, 0 refills - Celecoxib 200 MG Oral Capsule 1 capsule daily w food, 30 days, 5 refills - Fluticasone Propionate 50 MCG/ACT Nasal Suspension as directed 1 sq each nostril 1-2xd as needed, 30 days, 5 refills - Gabapentin 300 MG Oral Capsule take one capsule po q12 x 7 days then increase to 1 capsule po q8 hours as tolerated., 30 days, 0 refills - Ibuprofen 600 MG Oral Tablet One tablet three times a day w meals prn, 30 days, 5 refills - Levothyroxine Sodium 50 MCG Oral Tablet TAKE 1 TABLET BY MOUTH EVERY DAY, 90 days, 1 refills - Modafinil 200 MG Oral Tablet TAKE 1 TABLET BY MOUTH EVERY DAY. APPOINTMENT NEEDED, 30 days, 0 refills - SB Low Dose ASA EC 81 MG Oral Tablet Delayed Release One tablet daily 0 days, 0 refills - Sildenafil Citrate 100 MG Oral Tablet One tablet daily, 90 days, 1 refills - Testosterone 25 MG/2.5GM (1%) Transdermal Gel APPLY TO CLEAN, INTACT SKIN TWICE DAILYcall schedule follow-up, 30 days, 0 refills Past Medical/Surgical History Reported: No recent change in medical history, Message/Acupressure, Please list all illnesses/conditions you have been diagnosed with: Spinal stenosis. sciatica. bulging diskno spring on either foot right foot ortho issues, and Please list all surgeries: Foot surgery august 2022 [facility] [place] dr henry. Medical: No previous psychiatric treatment. Moderate to severe pain and Hypertension. No Spinal cord stimulator and no Pain Pump. Surgical / Procedural: No Pacemaker. Medications: Taking medication for high blood pressure. Not taking OTC medications. Tests: Blood pressure was high, X-rays [facility] dr hartmann referred xray nov 2022, and CT/MRI [facility] jan 18. Exposure: No exposure to a contagious disease. Other: Diaignostic fiberoptic colonoscopy 11/25/2022 Diagnoses: Essential hypertension. Hyperlipidemia Social History Social history changed. Behavioral: Amount of alcohol per day: 1-2. Tobacco use: No tobacco use and not a current smoker. Former smoker, current nonsmoker, and non-smoker. Smoking status: Never smoker. Alcohol: Alcohol. Not using alcohol. Drug Use: Not using drugs. Habits: No recent change in sleep. Work: Not a job-related injury. Allergies - No Known Allergies Plan StartCited - Radiculopathy, lumbar region Pregabalin 75 MG capsule Take 1 cap PO Q 12 hours, 30 days, 0 refills EndCited Health Reminders - Assess Need for CT Lung Screen satisfied 05/19/2023. - Assess Tobacco Use satisfied 05/19/2023. - Colorectal Cancer Screening satisfied 11/25/2022. * Progress note Date Encounter Last Documented by 05/03/2023 * PHONE CALL Last documented on 05/03/2023; 5:48 PM, MYESHA HARTMANN MD; [facility] Chief Complaint Phone Call - Chief Concern: Reason for call:He is still really congested he said. He wanted to see you but there is nothing soon. He does not want to go to the walk in. pt phone # for return call: [phone] Date/Initials:05/03/23 tlk discussed tx. * Progress note Date Encounter Last Documented by 04/27/2023 [Patient Encounter] Last documen nuris on 04/27/2023; 5:26 PM, WILL FULLER MD; [facility] Active Problems & Conditions - Encounter for immunization - Essential Hypertension - Hyperlipidemia - Hypothyroidism - Limb Pain Lower Leg - right - Osteoarthritis Primary Generalized - Sleep Disorder Hypersomnia - Testicular Dysfunction Current Medication - Azithromycin 500 MG Oral Tablet One tablet daily, 5 days, 0 refills - Celecoxib 200 MG Oral Capsule 1 capsule daily w food, 30 days, 5 refills - Fluticasone Propionate 50 MCG/ACT Nasal Suspension as directed 1 sq each nostril 1-2xd as needed, 30 days, 5 refills - Ibuprofen 600 MG Oral Tablet One tablet three times a day w meals prn, 30 days, 5 refills - Levothyroxine Sodium 50 MCG Oral Tablet TAKE 1 TABLET BY MOUTH EVERY DAY, 90 days, 1 refills - Modafinil 200 MG Oral Tablet TAKE 1 TABLET BY MOUTH EVERY DAY. APPOINTMENT NEEDED, 30 days, 0 refills - SB Low Dose ASA EC 81 MG Oral Tablet Delayed Release One tablet daily 0 days, 0 refills - Sildenafil Citrate 100 MG Oral Tablet One tablet daily, 90 days, 1 refills - Testosterone 25 MG/2.5GM (1%) Transdermal Gel APPLY TO CLEAN, INTACT SKIN TWICE DAILYcall schedule APR/MAY follow-up, 30 days, 0 refills Past Medical/Surgical History Reported: No recent change in medical history, Message/Acupressure, Please list all illnesses/conditions you have been diagnosed with: Spinal stenosis. sciatica. bulging diskno spring on either foot right foot ortho issues, and Please list all surgeries: Foot surgery august 2022 [facility] [place] dr henry. Medical: No previous psychiatric treatment. Moderate to severe pain and Hypertension. No Spinal cord stimulator and no Pain Pump. Surgical / Procedural: No Pacemaker. Medications: Taking medication for high blood pressure. Not taking OTC medications. Tests: Blood pressure was high, X-rays [facility] dr hartmann referred xray nov 2022, and CT/MRI [facility] jan 18. Exposure: No exposure to a contagious disease. Other: Diaignostic fiberoptic colonoscopy 11/25/2022 Diagnoses: Essential hypertension. Hyperlipidemia Social History Social history changed. Behavioral: Amount of alcohol per day: 1-2. Tobacco use: No tobacco use and not a current smoker. Former smoker, current nonsmoker, and non-smoker. Smoking status: Never smoker. Alcohol: Alcohol. Not using alcohol. Drug Use: Not using drugs. Habits: No recent change in sleep. Work: Not a job-related injury. Allergies - No Known Allergies Plan StartCited - Radiculopathy, lumbar region Gabapentin 300 MG capsule take one capsule po q12 x 7 days then increase to 1 capsule po q8 hours as tolerated., 30 days, 0 refills EndCited Health Reminders - Assess Need for CT Lung Screen satisfied 04/27/2023. - Assess Tobacco Use satisfied 04/27/2023. - Colorectal Cancer Screening satisfied 11/25/2022. * Progress note Date Encounter Last Documented by 04/20/2023 * PHONE CALL Last documented on 04/20/2023; 9:25 AM, MYESHA HARTMANN MD; [facility] Chief Complaint Phone Call - Chief Concern: Reason for call: Patient would like for you to call him at your earliest convenience. pt phone # for return call: [phone] Date/Initials: 04-20-23 KH discussed evicor/URI. Plan StartCited - Other Azithromycin 500 MG tablet One tablet daily, 5 days, 0 refills EndCited
--- OUTSIDE RECORDS SUMMARY | 2024-04-13 16:19 | XMS_ITS | Clinical Summary ---
Author Organization [facility] Address [address] [place] [address] Phone Care Team Providers Care Chief Customer Officer Name Role Phone MYESHA VALLECILLO MD Primary Care Provider [phone] Reason for Visit and Chief Complaint [Patient Encounter] Problems Includes: Problems addressed during this encounter and other active Problems All Visits Onset Date Resolved Date Provider Condition S tatus Hypogonadism 10/07/2023 MYESHA VALLECILLO MD Acti ve Last Documented On 4 3:15PM ; [facility] Limb Pain Lower Leg 12/24/2022 HAMMAD Frederick Active Last Documented On 3 9:14AM ; [facility] Note: right Sleep Disorder Hypersomnia 07/31/2021 MYESHA VALLECILLO MD Active Last Documented On 3 5:17PM ; [facility] Hyperlipidemia 08/01/2019 MYESHA VALLECILLO MD Ac tive Last Documented On 3 5:11PM ; [facility] Encounter for immunization 03/23/2019 LAINE COLBY MD Active Last Documented On 0 12:46PM ; [facility] Osteoarthritis Primary Generalized 12/19/2018 Farzad VALLECILLO MD Active Last Documented On 9 11:13AM ; [facility] Essential Hypertension 12/19/2018 MYESHA DIAZ MD Active Last Documented On 9 11:13AM ; [facility] Hypothyroidism 12/19/2016 MYESHA VALLECILLO MD Ac tive Last Documented On 9 11:13AM ; [facility] Plan of Treatment No Plan [...] 08/23/2023 5:51PM By MYESHA VALLECILLO MD ; [facility] Pregabalin 75 MG Oral Capsule 07/21/2023 Provider: GUILLE REESE MD Diagnosis: Radiculopathy, l umbar region TAKE 1 CAPSULE ORALLY EVERY 12 HOURS Last Documented On 07/21/2023 8:32AM By Guille Reese MD ; [facility] Testosterone 25 MG/2.5GM (1%) Transdermal Gel 06/10/2023 Provider: MYESHA VALLECILLO MD Diagnosis: Testicular dysfu nction, unspecified APPLY TO CLEAN, INTACT SKIN TWICE DAILY Last Documented On 06/10/2023 2:40PM By MYESHA VALLECILLO MD ; [facility] Ibuprofen 600 MG Oral Tablet 06/10/2023 Provider: MYESHA VALLECILLO MD Diagnosis: Primary generali zed (osteo)arthritis One tablet three times a day w food Last Documented On 06/10/2023 2:40PM By MYESHA VALLECILLO MD ; [facility] Fluticasone Propionate 50 MCG/ACT Nasal Suspension 06/10/2023 Provider: MYESHA VALLECILLO MD Diagnosis: Allergic rhiniti s due to pollen as directed 1 sq each nostri l 1-2xd as needed Last Documented On 06/10/2023 2:40PM By MYESHA VALLECILLO MD ; [facility] SB Low Dose ASA EC 81 MG Oral Tablet Delayed Release 1 04/08/2018 Provider: Diagnosis: Last Documented On 02/06/2019 10:36AM By MYESHA VALLECILLO MD ; [facility] Medications Administered Includes: Administered Medications from this [...] Location Date Check-In Time Check-Out Time Diagnosis [Patient Encounter] CHARLOTTE UNGER MD [facility] 07/16/19 24 11:09AM 11:59PM Insurance Includes: Active Insurance Policies Plan Name Member ID Group # Subscriber Relationship Effect sally Dates 1 - [employer] [id number] SHAKA COTO Self Clinical Notes Includes: Clinical Notes from this encounter No Clinical Notes Recorded
--- OUTSIDE RECORDS SUMMARY | 2024-04-13 16:19 | XMS_ITS | Clinical Summary ---
Author Organization [facility] Address [address] [place] [address] Phone Care Team Providers Care Massage Coordinator Name Role Phone MYESHA VALLECILLO MD Primary Care Provider [phone] Reason for Visit and Chief Complaint The Chief Complaint is: Follow up Problems Includes: Problems addressed during this encounter and other active Problems All Visits Onset Date Resolved Date Provider Condition S tatus Hypogonadism 10/07/2023 MYESHA VALLECILLO MD Acti ve Last Documented On 4 3:15PM ; [facility] Limb Pain Lower Leg 12/24/2022 [facility] Active Last Documented On 3 9:14AM ; [facility] Note: right Sleep Disorder Hypersomnia 07/31/2021 MYESHA VALLECILLO MD Active Last Documented On 3 5:17PM ; [facility] Hyperlipidemia 08/01/2019 MYESHA VALLECILLO MD Ac tive Last Documented On 3 5:11PM ; [facility] Encounter for immunization 03/23/2019 LAINE COLBY MD Active Last Documented On 0 12:46PM ; [facility] Osteoarthritis Primary Generalized 12/19/2018 Farzad VALLECILLO MD Active Last Documented On 9 11:13AM ; [facility] Essential Hypertension 12/19/2018 MYESHA DIAZ MD Active Last Documented On 9 11:13AM ; [facility] Hypothyroidism 12/19/2016 MYESHA VALLECILLO MD Ac tive Last Documented On 9 11:13AM ; [facility] Plan of Treatment He is doing very well. For the hernia, he can follow up on a prn basis. He is to follow up for a colonoscopy in 3 years or sooner if needed. - Last Documented On 09/07/2023 1:11PM ; [facility] Assessments Includes: Assessments from this encounter Findings - [Z01.818 - Encounter for other preprocedural examination] Postoperative exam - Last Documented On 09/07/2023 1:11PM ; [facility] Medical Equipment - Implanted Devices Includes: Current Devices No Medical Equipment Recorded Medications Includes: Medications discussed during this encounter and other current Medications Current Medications (continue as prescribed) Modafinil 200 MG Oral Tablet 08/23/2023 Provider: MYESHA VALLECILLO MD Diagnosis: Circadian rhythm sleep disorder, shift work type TAKE 1 TABLET BY MOUTH EVERY DAY. Last Documented On 08/23/2023 5:51PM By MYESHA VALLECILLO MD ; [facility] Pregabalin 75 MG Oral Capsule 07/21/2023 Provider: GUILLE REESE MD Diagnosis: Radiculopathy, l umbar region TAKE 1 CAPSULE ORALLY EVERY 12 HOURS Last Documented On 07/21/2023 8:32AM By Guille Reese MD ; [facility] Testosterone 25 MG/2.5GM (1%) Transdermal Gel 06/10/2023 Provider: MYESHA VALLECILLO MD Diagnosis: Testicular dysfu nction, unspecified APPLY TO CLEAN, INTACT SKIN TWICE DAILY Last Documented On 06/10/2023 2:40PM By MYESHA VALLECILLO MD ; [facility] Ibuprofen 600 MG Oral Tablet 06/10/2023 Provider: MYESHA VALLECILLO MD Diagnosis: Primary generali zed (osteo)arthritis One tablet three times a day w food Last Documented On 06/10/2023 2:40PM By MYESHA VALLECILLO MD ; [facility] Fluticasone Propionate 50 MCG/ACT Nasal Suspension 06/10/2023 Provider: MYESHA VALLECILLO MD Diagnosis: Allergic rhiniti s due to pollen as directed 1 sq each nostri l 1-2xd as needed Last Documented On 06/10/2023 2:40PM By MYESHA VALLECILLO MD ; [facility] SB Low Dose ASA EC 81 MG Oral Tablet Delayed Release 1 04/08/2018 Provider: Diagnosis: Last Documented On 02/06/2019 10:36AM By MYESHA VALLECILLO MD ; [facility] Past Medications on file Sildenafil Citrate 100 MG Oral Tablet 09/09/2023 - 03/07/2024 Provider: MYESHA VALLECILLO MD Diagnosis: Testicular dysfu nction, unspecified One tablet daily Last Documented On 09/09/2023 3:32PM By MYESHA VALLECILLO MD ; [facility] Levothyroxine Sodium 50 MCG Oral Tablet 08/23/2023 - 02/19/2024 Provider: MYESHA VALLECILLO MD Diagnosis: Hypothyroidism, unspecified TAKE 1 TABLET BY MOUTH EVERY DAY Last Documented On 08/23/2023 5:51PM By MYESHA VALLECILLO MD ; [facility] Medications Administered Includes: Administered Medications from this encounter No Administered Medications Recorded Vital Signs Includes: Vital Signs from this encounter Vital Name 09/07/2023 08:37A Blood Pressure Sitting L 130/84 BP Cuff Size Regular Pulse Rate-Sitting (bpm) 79 Respiration Rate (breaths/min) 20 Temp-Temporal 97.5 Height (in) 71 Weight (lb) 203.4 Body Mass Index 28.4 Body Surface Area 2.1 Oxygen Saturation (%) 98 Last Documented: On 09/07/2023 8:36AM ; [facility] Results Includes: Results discussed during this encounter No Results Recorded For Specified Dates History of Present Illness Includes: History of Present Illness from this encounter ANABEL CLIFFORD is a 62 year old male. - Allergy list reviewed - Medication list reviewed Mr Clifford is a 61 year old male who presents for a colonoscopy. His last was about 10 years ago in [place], and showed a few small polyps. He [...] well and is having regular bowel movements. Social History Description Last Updated Not a current smoker 06/10/2023 Last Documented On 4 8:33AM ; [facility] Consuming 5 or more drinks per day None 06/10/2023 Last Documented On 4 8:33AM ; [facility] Not recovering alcoholic 06/10/2023 Last Documented On 4 8:33AM ; [facility] Not recovering from substance abuse 05/21 Last Documented On 4 8:33AM ; [facility] Number of times used recreat ional drug/ prescription drug for nonmedical reason. None 06/10/2023 Last Documented On 4 8:33AM ; [facility] No recent change in sleep 01/21/2023 Last Documented On 4 8:33AM ; [facility] Alcohol 01/21/2023 Last Documented On 4 8:33AM ; [facility] Amount of alcohol per day: 1-2 3 Last Documented On 4 8:33AM ; [facility] Not using drugs 01/21/2023 Last Documented On 4 8:33AM ; [facility] Not a job-related injury 08/26/2022 Last Documented On 4 8:33AM ; [facility] Not using alcohol 05/08/2022 Last Documented On 4 8:33AM ; [facility] Former smoker 05/08/2022 Last Documented On 4 8:33AM ; [facility] Tobacco non-user 03/13/2021 Last Documented On 4 8:33AM ; [facility] Current nonsmoker 05/24/2020 Last Documented On 4 8:33AM ; [facility] Social history changed 11/30/2019 Last Documented On 4 8:33AM ; [facility] Non-smoker 11/30/2019 Last Documented On 4 8:33AM ; [facility] Smoking status : Never smoker 06/26/2019 Last Documented On 4 8:33AM ; [facility] No tobacco use 12/19/2018 Last Documented On 4 8:33AM ; [facility] Procedures and Surgical History Includes: Procedures from this encounter Procedures Code Diagnosis Performing Provider Service L ocation Service Date no influenza immunization Last Documented On 4 8:37AM ; [facility] no history of pneumococcal vaccine Last Documented On 4 8:37AM ; [facility] Surgical History Last Updated No Pacemaker 01/21/2023 Last Documented On 4 8:33AM ; [facility] Medical History Includes: Medical History addressed during this encounter Description Last Updated Blood pressure was high 01/21/2023 Last Documented On 4 8:33AM ; [facility] Hypertension 01/21/2023 Last Documented On 4 8:33AM ; [facility] No exposure to a contagious disease 04/2022 Last Documented On 4 8:33AM ; [facility] No previous psychiatric treatment 2022 Last Documented On 4 8:33AM ; [facility] Not taking OTC medications 01/21/2023 Last Documented On 4 8:33AM ; [facility] Taking medication for high blood pressur e 01/21/2023 Last Documented On 4 8:33AM ; [facility] CT/MRI [facility] dec 30 01/21/2023 Last Documented On 4 8:33AM ; [facility] Message/Acupressure 01/21/2023 Last Documented On 4 8:33AM ; [facility] Moderate to severe pain 01/21/2023 Last Documented On 4 8:33AM ; [facility] No Pain Pump 01/21/2023 Last Documented On 4 8:33AM ; [facility] No Spinal cord stimulator 01/21/2023 Last Documented On 4 8:33AM ; [facility] Please list all illnesses/co nditions you have been diagnosed with: Spinal stenosis. sciatica. bulging diskno spring on either foot right foot ortho issues 01/21/2023 Last Documented On 4 8:33AM ; [facility] Please list all surgeries: Foot surgery august 2022 [facility] [address] [place] 01/21/2023 Last Documented On 4 8:33AM ; [facility] X-rays [facility] dr vallecillo referred xray nov 2022 01/21/2023 Last Documented On 4 8:33AM ; [facility] History of colonoscopy fiberoptic was pe rformed 11/25/2022 12/09/2022 Last Documented On 4 8:33AM ; [facility] History of hyperlipidemia 02/06/2019 Last Documented On 4 8:33AM ; [facility] History of essential hypertension 2018 Last Documented On 4 8:33AM ; [facility] No recent change in medical history 11/22 Last Documented On 4 8:33AM ; [facility] Family History Includes: Family History addressed during [...] Time Diagnosis FOLLOW UP CHARLOTTE UNGER MD [facility] 09/07/19 24 8:28AM 8:43AM Postoperative Exam Insurance Includes: Active Insurance Policies Plan Name Member ID Group # Subscriber Relationship Effect sally Dates 1 - [employer] [id number] SHAKA CLIFFORD Self Clinical Notes Includes: Clinical Notes from this encounter * Progress note Date Encounter Last Documented by 09/07/2023 FOLLOW UP Last documented on 09/07/2023; 1:11 PM, CHARLOTTE UNGER MD; [facility] Top of Document This document [...] last was about 10 years ago in [place], and showed a few small polyps. He [...] list all surgeries: Foot surgery august [address] [facility] [address] [place]. Medical: No previous psychiatric treatment. Moderate to severe pain and Hypertension. No Spinal cord stimulator and no Pain Pump. Surgical / Procedural: No Pacemaker. Medications: Taking medication for high blood pressure. Not taking OTC medications. Tests: Blood pressure was high, X-rays [facility] dr vallecillo referred xray nov 2022, and CT/MRI [facility] jan 18. Exposure: No exposure to [...]
== END 2024-04-11 08:46 | disposition home or self-care (01) ==
PROVIDERS: PCP Clinical Nurse Specialist; Visit Provider Clinical Nurse Specialist
DX: Z01.818 Encounter for other preprocedural examination (principal); R94.31 Abnormal electrocardiogram [ECG] [EKG]
CPT/HCPCS: 78452; 93017; A9502

== ENCOUNTER 2024-04-12 00:39 | Day surgery (SDC) | payer MEDICARE, SELFPAY ==
[2024-03-28 14:31] VITALS: BP 156/77; PULSE 67; RESP 16; TEMP 36.8; O2SAT 99; BMI 28.0
--- NOTE | 2024-03-28 14:56 | PC.NURSE ---
Report to the Outpatient Waiting Room, entrance under the green pavilion located off [facility], at time ___6:00AM____ on date ___04/12/24____. Planned Procedure Time: __7:30AM .? Time changes happen often and if your time is changed the preop area will call you the afternoon before. - You and your visitor will be asked to self-screen and do not enter if you have any COVID symptoms. Please call surgeon if you need to reschedule. - A mask is optional within the hospital at this time. Patients may have clear liquids (water, carbonated beverages, clear teas, apple juice) until 3 hours prior to surgery with a maximum of 20 ounces. - No food from midnight until time of surgery and no smoking. This includes no chewing gum, candy or mints. Take only the following medications with a SIP of water on the morning of surgery: LEVOTHYROXINE. PREGABALIN NEEDED. DO NOT STOP ANY OF YOUR OTHER PRESCRIPTION MEDICATIONS PRIOR TO SURGERY EXCEPT THE FOLLOWING Medications to discontinue per physician ____HOLD ASPIRIN AND ALL VITAMINS/SUPPLEMENTS 7 DAYS PRE-OP PER DR BRAMBILA. Date to take last dose 04/04/24 Please no make-up, nail american, hairspray, perfume, deodorant, or body powder the day of surgery.? No jewelry (including any body piercings) or valuables the day of surgery, leave them at home.? Please take a shower or bath the night before, or the morning of, surgery with an antibacterial soap.? Wear comfortable, loose fitting clothing.? Children are encouraged to wear pajamas. - Jewelry must be removed prior to entering the operating room.? Rings and piercings that are not removed may be cut off. - The hospital will not accept responsibility for valuables.? - Please leave all valuables, including medications, at home the day of surgery. If you are going home after surgery, a licensed cement mixer driver must drive you home.? - NO public transportation without another adult if you receive anesthesia. - We recommend that an adult stay with you for 24 hours following discharge. - We also recommend that you do not drive, make important decision, drink alcoholic beverages, or take any drugs that were not prescribed by your health care provider for at least 24 hours after your discharge time.. Follow any additional instructions given to you from your surgeon. Telephone instructions given to ___PATIENT AND SIGNIFICANT OTHER and asked if any additional questions and then verbalized understanding. Patient advised to call surgeon office or pre surgery nurse liaison [phone] if any additional questions.
--- NOTE | 2024-04-11 14:17 | WPDANESEPPF ---
Anes - Initial Pre Proc Eval Procedure: Operation Date: 04/12/24 07:30 Proposed Procedures p L3-4, L4-5 Lumbar Laminectomy - Bettina Gonzalez MD Date/Time: 04/11/24 14:17 Surgeon: Bettina Gonzalez MD Pre Op Diagnosis: lumbar stenosis with neurogenic claudication Patient Data Age: 63 Gender: M Height: 1.78 m Weight: 88.7 kg Last Vital Signs Temp 98.3 F 03/28/24 14:31 Pulse 67 03/28/24 14:31 Resp 16 03/28/24 14:31 BP 156/77 H 03/28/24 14:31 Pulse Ox 99 03/28/24 14:31 O2 Del Method Room Air 03/28/24 14:31 Allergies Allergy/AdvReac Type Severity Reaction Status Date / Time crab AdvReac Severe Anaphylaxis Uncoded 04/12/24 07:25 Home Medications ?Medication ?Instructions ?Recorded ?Confirmed ?Type fluticasone propionate 50 1 spray intranasal DAILY 10/13/23 03/28/24 History mcg/actuation nasal spray,suspension ibuprofen 600 mg tablet 600 mg PO Q6H PRN pain 10/13/23 03/28/24 History levothyroxine 50 mcg capsule 50 mcg PO DAILY 10/13/23 03/28/24 History modafinil 200 mg tablet 200 mg PO QAM 10/13/23 03/28/24 History pregabalin 75 mg capsule (Lyrica) 75 mg PO BID 10/13/23 03/28/24 History aspirin 81 mg tablet,delayed 81 mg PO DAILY 03/21/24 03/28/24 History release testosterone 1 % (50 mg/5 gram) 1 packet topical BID 03/21/24 03/28/24 History transdermal gel packet Saw [place] Complex 1 cap PO DAILY 03/28/24 03/28/24 History vit 2 tablet PO DAILY 03/28/24 03/28/24 History [id number] 500 mg-50 mg-25 mg-40 mg tablet (Bioflex) Patient hx anesthesia problems: none Family hx anesthesia problems: none Results Review: All pre-operative results and documents have been reviewed as part of the pre-operative evaluation. [facility] Past Medical History Medical History (Updated 03/31/24 @ 13:21 by MARY Bradley-Otoniel) Arthritis Allergies Hypothyroidism Chronic fatigue Social History Social History (Updated 03/21/24 @ 09:28 by Pura Stauffer [facility]) Smoking packs per day: 0.25 Smoking cigarettes per day: 5.0 Years smoked: 4 Smoking pack-years: 1.00 Smoking status: Former smoker Smoking end date: 09/19/89 Alcohol intake: current Drinks per week: 6 Alcohol use details: beer/wine 1-2 a week Do You Feel Safe in your Home?: No Lack of Transportation: No Lack of Food: Never True Current Housing: I Have Housing Concerned About Future Housing: No Difficulty Paying Gas/Electric Bills: No Difficulty Paying for Meds: No Currently Unemployed: No Education: Associate Degree Difficulty w/ Childcare or Family Care: No Living arrangements: with family Additional living arrangements comments: S.O. Spiritual care concerns: No Anes - Eval Final PreProcedure Day of Procedure 04/11/24 14:17 Patient weight: normal Heart: regular rate and rhythm Lungs: clear to auscultation Airway: Mallampati scale class II Neurological: alert and oriented Last oral intake: >/= 8 hours ASA classification: III Emergent: no Anesthetic plan: proceed Anesthesia type and monitoring: general ETT and standard monitoring Results Review: All pre-operative results and documents have been reviewed as part of the pre-operative evaluation. Informed Consent: The patient's anesthetic plan and its attendant risks and benefits were discussed with the patient/family/POA. Questions were solicited and answers provided to the satisfaction of the patient/family/POA.
[2024-04-12] VITALS (19 sets, daily range): BP systolic 109–168; BP diastolic 63–84; PULSE 65–85; RESP 12–20; TEMP 36.1–37.4; O2SAT 95–100; BMI 27.8
--- NOTE | ~2024-04-12 | XR_ITS ---
EXAMINATION: XR fluoroscopy no charge DATE: 04/12/2024 10:41 INDICATION: L3-L4 and L4-L5 lumbar laminectomies TECHNIQUE: 2 lateral fluoroscopic images of the lumbar spine were obtained during procedure performed by Dr. Gonzalez. Radiologist was not present for the imaging or procedure. The amount of fluoroscopy time used during this procedure was 0.2 minutes. Total DAP was 1.707 2 Gycm^2 COMPARISON: None. FINDINGS: Images demonstrate mild to moderate lumbar spondylosis. Surgical retractors and lap sponge markers pr oject over the soft tissues posterior to the lower lumbar spine. A metallic probe projects initially posterior to the L3 spinous process and subsequently over the posterior elements at L4-L5. IMPRESSION: 1. Fluoroscopy utilized during neurosurgical procedure at the lower lumbar spine. See procedure note for further detail. Reviewed, dictated and finalized at location A. ENTARY ASSISTANT TEACHER IMPRESSION: 1. Fluoroscopy utilized during neurosurgical procedure at the lower lumbar spin e. See procedure note for further detail.
[2024-04-12] MEDS: LACTATED RINGERS 1,000 ML 30 ML IV CONT ×2 (06:30→10:22)
--- NOTE | 2024-04-12 07:13 | WPDHPUPDATE1 ---
History and Physical Update Update Date/Time: 04/12/24 07:13 History and Physical has been reviewed, including an updated exam of the patient. There are NO changes in the patient's condition. Risks, benefits, and alternatives have been discussed and questions answered. Patient agrees to proceed with procedure.
--- NOTE | 2024-04-12 07:14 | PM.IMHP ---
H&P: HPI History of Present Illness Date/Time: 04/12/24 07:14 Chief Complaint: neurogenic claudication Narrative: From 10/12: Mr. Clifford is a 62-year-old male with no significant medical history who was referred by Dr. Reese for evaluation of lumbar stenosis. The patient describes about a year's worth of pain and stiffness in his lower back with stiffness in the right leg, claudicatory numbness and fatigue in the legs, and some loss of strength in the right leg in particular. He denies any inciting event. He has been taking Lyrica and ibuprofen with some improvement. He has not had any formal physical therapy, although he is fairly active and likes to hike on a regular basis. He has had epidural steroid injections with some benefit. Dr. Reese had offered him the mild procedure, although there may be some insurance issues with getting this, and the patient also preferred to seek a surgical opinion as well. He also describes paresthesias in both hands, difficulty opening jars, difficulty gripping things, and having falls. These symptoms have been present for the last year or so as well. He notably takes a baby aspirin on a daily basis for prevention purposes. He is otherwise healthy. From 02/08: He completed physical therapy from which he did not get any significant relief. He continues to describe claudicatory pain in the back, numbness in the right leg, a sense of stiffness in the right leg, and some loss of strength in the right leg in particular. He also describes pain in the back that can occur randomly with twisting motions. He does not have any significant symptoms in the left leg. His symptoms are quite limiting for him and are reducing his quality of life. He also reports continued pain in the hands, but this sounds like it involves more of the joints of his hands at night time. Review of Systems Review of Systems: All systems reviewed & are unremarkable except as noted in HPI and below PMFSH Past Medical History Medical History (Updated 03/31/24 @ 13:21 by SHARON Bradley) Arthritis Allergies Hypothyroidism Chronic fatigue Social History Social History (Updated 03/21/24 @ 09:28 by Pura Stauffer [facility]) Smoking packs per day: 0.25 Smoking cigarettes per day: 5.0 Years smoked: 4 Smoking pack-years: 1.00 Smoking status: Former smoker Smoking end date: 09/19/89 Alcohol intake: current Drinks per week: 6 Alcohol use details: beer/wine 1-2 a week Do You Feel Safe in your Home?: No Lack of Transportation: No Lack of Food: Never True Current Housing: I Have Housing Concerned About Future Housing: No Difficulty Paying Gas/Electric Bills: No Difficulty Paying for Meds: No Currently Unemployed: No Education: Associate Degree Difficulty w/ Childcare or Family Care: No Living arrangements: with family Additional living arrangements comments: S.O. Spiritual care concerns: No Meds Home Medications and Allergies Home Medications ?Medication ?Instructions ?Recorded ?Confirmed ?Type fluticasone propionate 50 1 spray intranasal DAILY 10/13/23 03/28/24 History mcg/actuation nasal spray,suspension ibuprofen 600 mg tablet 600 mg PO Q6H PRN pain 10/13/23 03/28/24 History levothyroxine 50 mcg capsule 50 mcg PO DAILY 10/13/23 03/28/24 History modafinil 200 mg tablet 200 mg PO QAM 10/13/23 03/28/24 History pregabalin 75 mg capsule (Lyrica) 75 mg PO BID 10/13/23 03/28/24 History aspirin 81 mg tablet,delayed 81 mg PO DAILY 03/21/24 03/28/24 History release testosterone 1 % (50 mg/5 gram) 1 packet topical BID 03/21/24 03/28/24 History transdermal gel packet Saw [place] Complex 1 cap PO DAILY 03/28/24 03/28/24 History vit 2 tablet PO DAILY 03/28/24 03/28/24 History N-mkplffr-[id number]-[id number] 500 mg-50 mg-25 mg-40 mg tablet (Bioflex) Allergies Allergy/AdvReac Type Severity Reaction Status Date / Time crab AdvReac Anaphylaxis Uncoded 03/28/24 14:19 Exam Narrative: Bilateral plantar flexion 4+/5 Negative Tinel's, Phalens at carpal tunnels Unless otherwise stated above, the patient's physical exam is as follows: General: -Well developed and well nourished. No acute distress. Cooperative with exam. Mental status: -Awake and oriented to person, place, and time. Affect is normal. -Fund of knowledge appropriate -Recent and remote memory are intact -Attention span and concentration appear normal -Language function is normal -There is no evidence of aphasia in conversational speech. Cranial nerves: -CN II: Visual hanley full to bedside confrontation -CN III, IV, : Pupils equal, round, and reactive to light; extraocular movements, no ptosis, no nystagmus -CN V: Facial sensation intact in V1 through V3 distributions -CN VII: Face symmetric -CN VIII: Hearing intact to conversational speech -CN IX, X: Palate elevates symmetrically; normal phonation -CN XI: Symmetric full strength of sternocleidomastoid and trapezius muscles -CN XII: Tongue protrudes midline Integumentary: -No obvious skin lesions or masses Motor: -Muscle tone normal without spasticity of flaccidity. No atrophy. No fasciculations. -No pronator drift -Right upper extremity: deltoid 5/5, biceps 5/5, triceps 5/5, wrist extensors 5/5, wrist flexors 5/5, intrinsics 5/5 -Left upper extremity: deltoid 5/5, biceps 5/5, triceps 5/5, wrist extensors 5/5, wrist flexors 5/5, intrinsics 5/5 -Right lower extremity: iliopsoas 5/5, quadriceps 5/5, hamstrings 5/5, tibialis anterior 5/5, gastroc-soleus 5/5, EHL 5/5 -Left lower extremity: iliopsoas 5/5, quadriceps 5/5, hamstrings 5/5, tibialis anterior 5/5, gastroc-soleus 5/5, EHL 5/5 Sensory: -Intact to light touch throughout -Normal proprioception throughout Reflexes: -1-2+ DTR's throughout -No Villafana's, clonus, or Babinski bilaterally Musculoskeletal: -Lumbar spine: no tenderness to palpation, no pain, and normal lumbosacral spine movements -Qomybbyl-pud-uftfe test negative -Hip: normal range of motion, no crepitus bilaterally. No pain reproduced on CONRAD or FAIR testing bilaterally -Knee: no instability, subluxation or laxity, and no crepitus bilaterally I personally reviewed the MRI lumbar spine which shows severe central stenosis L3-4 and L4-5 from a combination of ligamentum flavum hypertrophy, epidural lipomatosis, and facet hypertrophy Assessment and Plan Assessment and plan (1) Lumbar stenosis with neurogenic claudication: Code(s): M48.062 - Spinal stenosis, lumbar region with neurogenic claudication Status: Acute Plan Mr. Clifford is a 63-year-old male with a year long history of stiffness in the lower back with claudicatory numbness in the right leg and sense of fatigue in both legs with walking. He has had physical therapy and has worked with Dr. Reese without any significant relief in his symptoms. We reviewed his MRI together. This most notably shows severe central stenosis at L3-4 and L4-5 from a combination of ligamentum flavum hypertrophy, epidural lipomatosis, and facet hypertrophy. I have offered him surgery in the form of L3-4 and L4-5 laminectomies. We discussed surgery in detail including risks, expected recovery, and restrictions after surgery. We discussed that I do not expect the surgery to fix all of the pain that he has in his back in particular. He expressed understanding of this. He would like to proceed with surgery as discussed.
[2024-04-12] MEDS: ceFAZolin 2 GM/D5W 50 ML 2 GM/50 ML BAG IVPB ×3 (07:33→21:03)
[2024-04-12] MEDS: BUPIVACAINE/EPINEPHRINE 0.5% 30 ML VIAL 20 ML INFILTRATE (08:18)
[2024-04-12] MEDS: BACITRACIN OINTMENT 15 GM TUBE 1 APPLIC TOPICAL (10:05)
--- NOTE | 2024-04-12 10:24 | PM.OP ---
Procedure Note - Brief Procedure Note - Brief Date of procedure: 04/12/24 lumbar stenosis with neurogenic claudication Post-op diagnosis: Same Procedure performed: L3-4, L4-5 laminectomies Resection of small synovial cyst at L3-4 Surgeon: Bettina Gonzalez MD Salvage Engineering Technician: Kilo Anesthesia: GETA Findings: Small synovial cyst noted on the left side at L3-4. Laminectomies without complication Estimated blood loss (mL): 25 Drains: Yes Packing: No Pathology: None sent Complications: None Condition: Stable Disposition: PACU
--- NOTE | 2024-04-12 10:31 | W.PM.PROC2 ---
Procedure Note - Detailed Date of Procedure 04/12/24 Pre-op Diagnosis lumbar stenosis with neurogenic claudication Post-op Diagnosis Same Procedure Performed 1. L3-4, L4-5 laminectomies 2. Resection of small synovial cyst on the left at L3-4 3. Use of microscope 4. Use of fluoroscopy Surgeon Bettina Gonzalez MD Casework Supervisor Kilo Anesthesia General Description of Procedure The patient was brought to the operating room, and general anesthesia was induced. The patient was placed prone on the Silvino frame, and all pressure points were padded. Compression devices were placed on the patient's calves. The skin was cleaned with alcohol. The C-arm was brought onto the field to localize the appropriate disc space and assist with incisional planning. A midline incision was marked. The area was prepped and draped in usual sterile fashion. A time out was conducted, and pre-operative antibiotics were administered. Local anesthesia was injected into the planned incision. The midline skin incision was opened with a 10-blade scalpel, and dissection was carried down with the monopolar cautery to open the fascia. Once the spinous processes were located, a subperiosteal dissection was performed to expose the laminae bilaterally. A self-retaining retractor was placed. The C-arm was brought in to confirm the correct levels. The spinous processes were removed with a Leksell. The microscope was draped and brought into the field for microsurgical dissection. The high-speed drill was used to thin the laminae bilaterally to the ligamentum flavum at L3-4 and L4-5. A currette was used to separate the ligament from the bone which was then removed with the Kerrison. The ligamentum was then elevated with a currette and removed. On the left side at L3-4, there was a small synovial cyst noted which was removed with a kerrison. A Woodsen was used to verify adequate decompression at the cranial and caudal aspects of the decompression. Hemostasis was ensured, and the area was copiously irrigated. No evidence of CSF leak was noted. A hemovac drain was placed and tunneled inferiorly to the right. The muscle was loosely approximated with 0-Vicryl. The fascia was closed with 0-Vicryl in an interrupted fashion. The soft tissue was again copiously irrigated. The dermis was closed with 2-0 then 3-0 interrupted Vicryl. The skin was closed with 3-0 nylon. Sterile dressings were placed. The patient was returned supine on the stretcher, extubated, and transferred to PACU without incident. Billing codes: 85103, 02836, 92898 Estimated Blood Loss 25 Drains Yes Packing No Pathology None sent Complications None Condition Stable Disposition PACU [facility] Billing Surgery - Charge Forward: Surgery Billing
[2024-04-12] MEDS: fentaNYL CITRATE INJ (*CRX) 100 MCG/2 ML VIAL 25 MCG IV PUSH ×4 (11:01→11:23)
--- NOTE | 2024-04-12 14:08 | SUR.PHASEI ---
PT RECEIVED TO PRE OP RM 6 AT 1305, DRINKS OFFERED, AT BEDSIDE
--- NOTE | 2024-04-12 16:36 | ADMGEN ---
This patient, Rocael Clifford, was admitted to 3 [facility] Surg Room 313-01. Patient/family oriented to hospital policies and general routines including ID bracelet, bed and alarms, visiting hours, pain management, procedures, bathroom and other care routines, personal items, smoking policy, room service/diet, and visiting hours. Information on how to activate the Rapid Response Team has been discussed. Patient/Family are encouraged to report perceived risks to care and to ask questions if they do not understand what they are told or what they should do.
[2024-04-12] MEDS: ACETAMINOPHEN 500 MG TABLET 1000 MG PO (18:11)
[2024-04-12] MEDS: DOCUSATE SODIUM 100 MG CAPSULE PO (20:21)
[2024-04-12] MEDS: PREGABALIN (*CRX) 75 MG CAPSULE PO (20:21)
[2024-04-13 01:25] VITALS: BP 183/87; PULSE 70; RESP 20; TEMP 36.7; O2SAT 100
[2024-04-13] MEDS: ACETAMINOPHEN 500 MG TABLET 1000 MG PO ×2 (05:00→12:18)
[2024-04-13] MEDS: LEVOTHYROXINE SODIUM 50 MCG TABLET PO (05:00)
[2024-04-13 05:25] VITALS: BP 140/65; PULSE 64; RESP 16; TEMP 36.8; O2SAT 99
[2024-04-13] MEDS: ceFAZolin 2 GM/D5W 50 ML 2 GM/50 ML BAG IVPB ×2 (05:34→13:30)
[2024-04-13] MEDS: modafiniL (*CRX) 200 MG TABLET PO (09:10)
[2024-04-13] MEDS: PREGABALIN (*CRX) 75 MG CAPSULE PO (09:10)
[2024-04-13] MEDS: DOCUSATE SODIUM 100 MG CAPSULE PO (09:10)
[2024-04-13] MEDS: oxyCODONE HCL (*CRX) 5 MG TAB IR PO (09:15)
[2024-04-13 09:25] VITALS: BP 159/72; PULSE 57; RESP 18; TEMP 36.3; O2SAT 99
[2024-04-13 13:25] VITALS: BP 158/85; PULSE 75; RESP 18; TEMP 36.9; O2SAT 98
--- NOTE | 2024-04-13 13:41 | WPDNEUROSGPN ---
Progress Note: A&P Assessment and Plan (1) Status post lumbar laminectomy: Code(s): Z98.890 - Other specified postprocedural states Status: Acute Plan -Remove hemovac drain today -Discharge home -Activity and wound care precautions reviewed at bedside -Follow up with me in clinic in 2 weeks Subjective Date/time seen: 04/13/24 13:41 Interval history: Doing well today with tolerable incisional pain. He has ambulated without difficulty. He is voiding spontaneously and eating. He would like to go home today Review of Systems Review of Systems: All systems reviewed & are unremarkable except as noted in HPI and below Exam Narrative: AOx4 Dressing c/d/i Moving legs well Objective Data Vital Signs Vital Signs: Vital Signs - 24 hr 04/12/24 15:00 04/12/24 15:15 04/12/24 15:45 Temperature 99.3 F 98.3 F 99.2 F Pulse Rate 84 84 85 Respiratory Rate 20 20 20 Blood Pressure 155/66 H 168/75 H 149/69 H Pulse Oximetry 99 99 97 Oxygen Delivery 04/12/24 16:15 04/12/24 16:55 04/12/24 20:20 Temperature 99.1 F Pulse Rate 79 79 Respiratory Rate 18 18 Blood Pressure 151/77 H Pulse Oximetry 99 99 Oxygen Delivery Room Air Room Air 04/12/24 21:21 04/13/24 01:25 04/13/24 05:25 Temperature 98 F 98.1 F 98.3 F Pulse Rate 67 70 64 Respiratory Rate 14 20 16 Blood Pressure 131/63 183/87 H 140/65 Pulse Oximetry 95 100 99 Oxygen Delivery 04/13/24 09:25 04/13/24 13:25 Temperature 97.4 F L 98.4 F Pulse Rate 57 L 75 Respiratory Rate 18 18 Blood Pressure 159/72 H 158/85 H Pulse Oximetry 99 98 Oxygen Delivery Intake/Output Intake/Output: Intake & Output 04/10/24 04/11/24 04/12/24 04/13/24 23:59 23:59 23:59 23:59 Intake Total 887 240 Output Total 175 60 Balance 712 180 Meds/Results Medications: Active Medications Generic Name Dose Route Start Last Admin Trade Name Freq PRN Reason Stop Dose Admin Acetaminophen 1,000 mg 04/12/24 12:00 04/13/24 12:18 Acetaminophen 500 Mg Tablet PO 1,000 mg Q6H KIMMY Administration Al Hydrox/Mg Hydrox/Simethicone 20 ml 04/12/24 10:25 Mag Hydrox/Al Hydrox/Simeth 30 Ml Udc PO Q4H PRN Indigestion/Heartburn Bisacodyl 10 mg 04/12/24 10:25 Bisacodyl 10 Mg Suppository RECTAL DAILY PRN Constipation Docusate Sodium 100 mg 04/12/24 21:00 04/13/24 09:10 Docusate Sodium 100 Mg Capsule PO 100 mg Q12HR KIMMY Administration Fluticasone Propionate 1 spray 04/13/24 09:00 Fluticasone Propionate 0.05% Na Spr 16 Gm Btl (*Bkc) NASAL DAILY KIMMY Cefazolin Sodium 2 gm in 50 mls @ 100 mls/hr 04/12/24 14:00 04/13/24 05:34 Ancef 2 Gm/D5w 50 Ml IVPB 100 mls/hr Q8H KIMMY Administration Levothyroxine Sodium 50 mcg 04/13/24 06:30 04/13/24 05:00 Levothyroxine Sodium 50 Mcg Tablet PO 50 mcg DAILY@0630 [facility] Administration Modafinil 200 mg 04/13/24 09:00 04/13/24 09:10 Modafinil (*Crx) 200 Mg Tablet PO 200 mg QAM KIMMY Administration Morphine Sulfate 2 mg 04/12/24 10:25 Morphine Sulfate (*Crx) 2 Mg/Ml Inj IV PUSH Q2H PRN Breakthrough Pain Ondansetron HCl 4 mg 04/12/24 10:25 Ondansetron Inj 4 Mg/2 Ml Vial IV PUSH Q8H PRN Nausea And Vomiting Oxycodone HCl 10 mg 04/12/24 10:25 Oxycodone Hcl (*Crx) 5 Mg Tab Ir PO Q4H PRN Pain Rated 7-10 Oxycodone HCl 5 mg 04/12/24 10:25 04/13/24 09:15 Oxycodone Hcl (*Crx) 5 Mg Tab Ir PO 5 mg Q4H PRN Administration Pain Rated 4-6 Pregabalin 75 mg 04/12/24 21:00 04/13/24 09:10 Pregabalin (*Crx) 75 Mg Capsule PO 75 mg Q12HR KIMMY Administration Senna/Docusate Sodium 1 tab 04/12/24 10:25 Senna/Docusate Sodium Tablet PO HS PRN Constipation Radiology Results: ITS Impressions Fluoroscopy 04/12/24 11:26 IMPRESSION: 1. Fluoroscopy utilized during neurosurgical procedure at the lower lumbar spine. See procedure note for further detail.
--- OUTSIDE RECORDS SUMMARY | 2024-04-13 20:54 | XMS_ITS ---
Care Plan - [facility] Created on: April 13, 2024 SHAKA COTO : 1960 Sex: Male Author Organization [facility] Address [address] [place] [address] Phone Care Team Providers Care Horseback Riding Instructor Name Role Phone MYESHA VALLECILLO MD Primary Care Provider [phone]
--- OUTSIDE RECORDS SUMMARY | 2024-04-13 20:54 | XMS_ITS | Clinical Summary ---
Author Organization [facility] Address [address] [place] [address] Phone Care Team Providers Care Electronic Repair Troubleshooter Name Role Phone MYESHA VALLECILLO MD Primary Care Provider [phone] Reason for Visit and Chief Complaint SURGERY IN HOSPITAL Problems Includes: Problems addressed during this encounter and other active Problems All Visits Onset Date Resolved Date Provider Condition S tatus Hypogonadism 10/07/2023 MYESHA VALLECILLO MD Acti ve Last Documented On 4 3:15PM ; [facility] Limb Pain Lower Leg 12/24/2022 [facility] Active Last Documented On 3 9:14AM ; [facility] Note: right Sleep Disorder Hypersomnia 07/31/2021 MYESHA VALLECILLO MD Active Last Documented On 3 5:17PM ; [facility] Hyperlipidemia 08/01/2019 MYESHA VALLECILLO MD Ac tive Last Documented On 3 5:11PM ; [facility] Encounter for immunization 03/23/2019 LAINE COLBY MD Active Last Documented On 0 12:46PM ; [facility] Osteoarthritis Primary Generalized 12/19/2018 Farzad VALLECILLO MD Active Last Documented On 9 11:13AM ; [facility] Essential Hypertension 12/19/2018 MYESHA DIAZ MD Active Last Documented On 9 11:13AM ; [facility] Hypothyroidism 12/19/2016 MYESHA VALLECILLO MD Ac tive Last Documented On 9 11:13AM ; [facility] Plan of Treatment [...] 08/23/2023 5:51PM By MYESHA VALLECILLO MD ; [facility] Pregabalin 75 MG Oral Capsule 07/21/2023 Provider: GUILLE REESE MD Diagnosis: Radiculopathy, l umbar region TAKE 1 CAPSULE ORALLY EVERY 12 HOURS Last Documented On 07/21/2023 8:32AM By Guille Reese MD ; [facility] Testosterone 25 MG/2.5GM (1%) Transdermal Gel 06/10/2023 Provider: MYESHA VALLECILLO MD Diagnosis: Testicular dysfu nction, unspecified APPLY TO CLEAN, INTACT SKIN TWICE DAILY Last Documented On 06/10/2023 2:40PM By MYESHA VALLECILLO MD ; [facility] Ibuprofen 600 MG Oral Tablet 06/10/2023 Provider: MYESHA VALLECILLO MD Diagnosis: Primary generali zed (osteo)arthritis One tablet three times a day w food Last Documented On 06/10/2023 2:40PM By MYESHA VALLECILLO MD ; [facility] Fluticasone Propionate 50 MCG/ACT Nasal Suspension 06/10/2023 Provider: MYESHA VALLECILLO MD Diagnosis: Allergic rhiniti s due to pollen as directed 1 sq each nostri l 1-2xd as needed Last Documented On 06/10/2023 2:40PM By MYESHA VALLECILLO MD ; [facility] SB Low Dose ASA EC 81 MG Oral Tablet Delayed Release 1 04/08/2018 Provider: Diagnosis: Last Documented On 02/06/2019 10:36AM By MYESHA VALLECILLO MD ; [facility] Medications Administered Includes: Administered Medications from this [...] ANTERIOR A[address] HERNIA, AND APPROACH< 3CM DEFECT [address]51 Umbilical hernia without obstruction or gangrene CHARLOTTE UNGER MD [facility] 08/02/2023 Last Documented On 4 8:32AM ; [facility] Medical History Includes: Medical History [...] Diagnosis SURGERY IN HOSPITAL CHARLOTTE UNGER MD [facility] 4 8:32AM 11:59PM Insurance Includes: Active Insurance Policies Plan Name Member ID Group # Subscriber Relationship Effect sally Dates - [employer] [id number] SHAKA COTO Self Clinical Notes Includes: Clinical Notes from this encounter No Clinical Notes Recorded
--- OUTSIDE RECORDS SUMMARY | 2024-04-13 20:54 | XMS_ITS | Clinical Summary ---
Author Organization [facility] Address [address] [place] [address] Phone Care Team Providers Care Human Resources Technician Name Role Phone MYESHA VALLECILLO MD Primary Care Provider [phone] Reason for Visit and Chief Complaint The Chief Complaint is: Follow up from procedure Problems Includes: Problems addressed during this encounter and other active Problems All Visits Onset Date Resolved Date Provider Condition S tatus Hypogonadism 10/07/2023 MYESHA VALLECILLO MD Acti ve Last Documented On 4 3:15PM ; [facility] Limb Pain Lower Leg 12/24/2022 [facility] Frederick Active Last Documented On 3 9:14AM ; [facility] Note: right Sleep Disorder Hypersomnia 07/31/2021 MYESHA VALLECILLO MD Active Last Documented On 3 5:17PM ; [facility] Hyperlipidemia 08/01/2019 MYESHA VALLECILLO MD Ac tive Last Documented On 3 5:11PM ; [facility] Encounter for immunization 03/23/2019 LAINE COLBY MD Active Last Documented On 0 12:46PM ; [facility] Osteoarthritis Primary Generalized 12/19/2018 Farzad VALLECILLO MD Active Last Documented On 9 11:13AM ; [facility] Essential Hypertension 12/19/2018 MYESHA DIAZ MD Active Last Documented On 9 11:13AM ; [facility] Hypothyroidism 12/19/2016 MYESHA VALLECILLO MD Ac tive Last Documented On 9 11:13AM ; [facility] Plan of Treatment He is doing very well. He is to continue limiting himself to lifting less than 10 pounds for 2 more weeks, and follow up in 1 month or sooner if needed. - Last Documented On 08/10/2023 4:26PM ; [facility] Assessments Includes: Assessments from this encounter Findings - [Z01.818 - Encounter for other preprocedural examination] Postoperative exam - Last Documented On 08/10/2023 4:26PM ; [facility] Medical Equipment - Implanted Devices Includes: [...] 08/23/2023 5:51PM By MYESHA VALLECILLO MD ; [facility] Pregabalin 75 MG Oral Capsule 07/21/2023 Provider: GUILLE REESE MD Diagnosis: Radiculopathy, l umbar region TAKE 1 CAPSULE ORALLY EVERY 12 HOURS Last Documented On 07/21/2023 8:32AM By Guille Reese MD ; [facility] Testosterone 25 MG/2.5GM (1%) Transdermal Gel 06/10/2023 Provider: MYESHA VALLECILLO MD Diagnosis: Testicular dysfu nction, unspecified APPLY TO CLEAN, INTACT SKIN TWICE DAILY Last Documented On 06/10/2023 2:40PM By MYESHA VALLECILLO MD ; [facility] Ibuprofen 600 MG Oral Tablet 06/10/2023 Provider: MYESHA VALLECILLO MD Diagnosis: Primary generali zed (osteo)arthritis One tablet three times a day w food Last Documented On 06/10/2023 2:40PM By MYESHA VALLECILLO MD ; [facility] Fluticasone Propionate 50 MCG/ACT Nasal Suspension 06/10/2023 Provider: MYESHA VALLECILLO MD Diagnosis: Allergic rhiniti s due to pollen as directed 1 sq each nostri l 1-2xd as needed Last Documented On 06/10/2023 2:40PM By MYESHA VALLECILLO MD ; [facility] SB Low Dose ASA EC 81 MG Oral Tablet Delayed Release 1 04/08/2018 Provider: Diagnosis: Last Documented On 02/06/2019 10:36AM By MYESHA VALLECILLO MD ; [facility] Past Medications on file Sildenafil Citrate 100 MG Oral Tablet 09/09/2023 - 03/07/2024 Provider: MYESHA VALLECILLO MD Diagnosis: Testicular dysfu nction, unspecified One tablet daily Last Documented On 09/09/2023 3:32PM By MYESHA VALLECILLO MD ; [facility] Levothyroxine Sodium 50 MCG Oral Tablet 08/23/2023 - 02/19/2024 Provider: MYESHA VALLECILLO MD Diagnosis: Hypothyroidism, unspecified TAKE 1 TABLET BY MOUTH EVERY DAY Last Documented On 08/23/2023 5:51PM By MYESHA VALLECILLO MD ; [facility] Medications Administered Includes: Administered Medications from this encounter No Administered Medications Recorded Vital Signs Includes: Vital Signs from this encounter Vital Name 08/10/2023 09:42A BP Cuff Size Regular Respiration Rate (breaths/min) 18 Temp-Temporal 97.7 Height (in) 71 Weight (lb) 211 Body Mass Index 29.4 Body Surface Area 2.2 Oxygen Saturation (%) 94 Last Documented: On 08/10/2023 9:42AM ; [facility] Results Includes: Results discussed during this encounter No Results Recorded For Specified Dates History of Present Illness Includes: History of Present Illness from this encounter ANABEL CLIFFORD is a 62 year old male. - Allergy list reviewed - Medication list reviewed Mr Clifford is a 61 year old male who presents for a colonoscopy. His last was about 10 years ago in [place], and showed a few small polyps. He [...] 06/10/2023 Last Documented On 4 9:41AM ; [facility] Consuming 5 or more drinks per day None 06/10/2023 Last Documented On 4 9:41AM ; [facility] Not recovering alcoholic 06/10/2023 Last Documented On 4 9:41AM ; [facility] Not recovering from substance abuse 05/21 Last Documented On 4 9:41AM ; [facility] Number of times used recreat ional drug/ prescription drug for nonmedical reason. None 06/10/2023 Last Documented On 4 9:41AM ; [facility] No recent change in sleep 01/21/2023 Last Documented On 4 9:41AM ; [facility] Alcohol 01/21/2023 Last Documented On 4 9:41AM ; [facility] Amount of alcohol per day: 1-2 3 Last Documented On 4 9:41AM ; [facility] Not using drugs 01/21/2023 Last Documented On 4 9:41AM ; [facility] Not a job-related injury 08/26/2022 Last Documented On 4 9:41AM ; [facility] Not using alcohol 05/08/2022 Last Documented On 4 9:41AM ; [facility] Former smoker 05/08/2022 Last Documented On 4 9:41AM ; [facility] Tobacco non-user 03/13/2021 Last Documented On 4 9:41AM ; [facility] Current nonsmoker 05/24/2020 Last Documented On 4 9:41AM ; [facility] Social history changed 11/30/2019 Last Documented On 4 9:41AM ; [facility] Non-smoker 11/30/2019 Last Documented On 4 9:41AM ; [facility] Smoking status : Never smoker 06/26/2019 Last Documented On 4 9:41AM ; [facility] No tobacco use 12/19/2018 Last Documented On 4 9:41AM ; [facility] Procedures and Surgical History Surgical History Last Updated No Pacemaker 01/21/2023 Last Documented On 4 9:41AM ; [facility] Medical History Includes: Medical History addressed during this encounter Description Last Updated Blood pressure was high 01/21/2023 Last Documented On 4 9:41AM ; [facility] Hypertension 01/21/2023 Last Documented On 4 9:41AM ; [facility] No exposure to a contagious disease 04/2022 Last Documented On 4 9:41AM ; [facility] No previous psychiatric treatment 2022 Last Documented On 4 9:41AM ; [facility] Not taking OTC medications 01/21/2023 Last Documented On 4 9:41AM ; [facility] Taking medication for high blood pressur e 01/21/2023 Last Documented On 4 9:41AM ; [facility] CT/MRI [facility] dec 30 01/21/2023 Last Documented On 4 9:41AM ; [facility] Message/Acupressure 01/21/2023 Last Documented On 4 9:41AM ; [facility] Moderate to severe pain 01/21/2023 Last Documented On 4 9:41AM ; [facility] No Pain Pump 01/21/2023 Last Documented On 4 9:41AM ; [facility] No Spinal cord stimulator 01/21/2023 Last Documented On 4 9:41AM ; [facility] Please list all illnesses/co nditions you have been diagnosed with: Spinal stenosis. sciatica. bulging diskno spring on either foot right foot ortho issues 01/21/2023 Last Documented On 4 9:41AM ; [facility] Please list all surgeries: Foot surgery august 2022 [facility] [address] [place] 01/21/2023 Last Documented On 4 9:41AM ; [facility] X-rays [facility] dr vallecillo referred xray nov 2022 01/21/2023 Last Documented On 4 9:41AM ; [facility] History of colonoscopy fiberoptic was pe rformed 11/25/2022 12/09/2022 Last Documented On 4 9:41AM ; [facility] History of hyperlipidemia 02/06/2019 Last Documented On 4 9:41AM ; [facility] History of essential hypertension 2018 Last Documented On 4 9:41AM ; [facility] No recent change in medical history 11/22 Last Documented On 4 9:41AM ; [facility] Family History Includes: Family History addressed [...] Time Diagnosis FOLLOW UP CHARLOTTE UNGER MD [facility] 08/10/19 24 9:25AM 9:43AM Postoperative Exam Insurance Includes: Active Insurance Policies Plan Name Member ID Group # Subscriber Relationship Effect sally Dates 1 - [employer] [id number] SHAKA CLIFFORD Self Clinical Notes Includes: Clinical Notes from this encounter * Progress note Date Encounter Last Documented by 08/10/2023 FOLLOW UP Last documented on 08/10/2023; 4:26 PM, CHARLOTTE UNGER MD; [facility] Top of Document This document represents the [...] last was about 10 years ago in [place], and showed a few small polyps. He [...] list all surgeries: Foot surgery august [address] [facility] [address] [place]. Medical: No previous psychiatric treatment. Moderate to severe pain and Hypertension. No Spinal cord stimulator and no Pain Pump. Surgical / Procedural: No Pacemaker. Medications: Taking medication for high blood pressure. Not taking OTC medications. Tests: Blood pressure was high, X-rays [facility] dr vallecillo referred xray nov 2022, and CT/MRI [facility] jan 18. Exposure: No exposure to [...]
--- OUTSIDE RECORDS SUMMARY | 2024-04-13 20:54 | XMS_ITS | Clinical Summary ---
Author Organization [facility] Address [address] [place] [address] Phone Care Team Providers Care Ship Self Defense System [id number] Operator Name Role Phone MYESHA VALLECILLO MD Primary Care Provider [phone] Reason for Visit and Chief Complaint The Chief Complaint is: Follow up Problems Includes: Problems addressed during this encounter and other active Problems All Visits Onset Date Resolved Date Provider Condition S tatus Hypogonadism 10/07/2023 MYESHA VALLECILLO MD Acti ve Last Documented On 4 3:15PM ; [facility] Limb Pain Lower Leg 12/24/2022 [facility] Active Last Documented On 3 9:14AM ; [facility] Note: right Sleep Disorder Hypersomnia 07/31/2021 MYEHSA VALLECILLO MD Active Last Documented On 3 5:17PM ; [facility] Hyperlipidemia 08/01/2019 MYESHA VALLECILLO MD Ac tive Last Documented On 3 5:11PM ; [facility] Encounter for immunization 03/23/2019 LAINE COLBY MD Active Last Documented On 0 12:46PM ; [facility] Osteoarthritis Primary Generalized 12/19/2018 Farzad VALLECILLO MD Active Last Documented On 9 11:13AM ; [facility] Essential Hypertension 12/19/2018 MYESHA DIAZ MD Active Last Documented On 9 11:13AM ; [facility] Hypothyroidism 12/19/2016 MYESHA VALLECILLO MD Ac tive Last Documented On 9 11:13AM ; [facility] Plan of Treatment He is doing very well. For the hernia, he can follow up on a prn basis. He is to follow up for a colonoscopy in 3 years or sooner if needed. - Last Documented On 09/07/2023 1:11PM ; [facility] Assessments Includes: Assessments from this encounter Findings - [Z01.818 - Encounter for other preprocedural examination] Postoperative exam - Last Documented On 09/07/2023 1:11PM ; [facility] Medical Equipment - Implanted Devices Includes: [...] 08/23/2023 5:51PM By MYESHA VALLECILLO MD ; [facility] Pregabalin 75 MG Oral Capsule 07/21/2023 Provider: GUILLE REESE MD Diagnosis: Radiculopathy, l umbar region TAKE 1 CAPSULE ORALLY EVERY 12 HOURS Last Documented On 07/21/2023 8:32AM By Guille Reese MD ; [facility] Testosterone 25 MG/2.5GM (1%) Transdermal Gel 06/10/2023 Provider: MYESHA VALLECILLO MD Diagnosis: Testicular dysfu nction, unspecified APPLY TO CLEAN, INTACT SKIN TWICE DAILY Last Documented On 06/10/2023 2:40PM By MYESHA VALLECILLO MD ; [facility] Ibuprofen 600 MG Oral Tablet 06/10/2023 Provider: MYESHA VALLECILLO MD Diagnosis: Primary generali zed (osteo)arthritis One tablet three times a day w food Last Documented On 06/10/2023 2:40PM By MYESHA VALLECILLO MD ; [facility] Fluticasone Propionate 50 MCG/ACT Nasal Suspension 06/10/2023 Provider: MYESHA VALLECILLO MD Diagnosis: Allergic rhiniti s due to pollen as directed 1 sq each nostri l 1-2xd as needed Last Documented On 06/10/2023 2:40PM By MYESHA VALLECILLO MD ; [facility] SB Low Dose ASA EC 81 MG Oral Tablet Delayed Release 1 04/08/2018 Provider: Diagnosis: Last Documented On 02/06/2019 10:36AM By MYESHA VALLECILLO MD ; [facility] Past Medications on file Sildenafil Citrate 100 MG Oral Tablet 09/09/2023 - 03/07/2024 Provider: MYESHA VALLECILLO MD Diagnosis: Testicular dysfu nction, unspecified One tablet daily Last Documented On 09/09/2023 3:32PM By MYESHA VALLECILLO MD ; [facility] Levothyroxine Sodium 50 MCG Oral Tablet 08/23/2023 - 02/19/2024 Provider: MYESHA VALLECILLO MD Diagnosis: Hypothyroidism, unspecified TAKE 1 TABLET BY MOUTH EVERY DAY Last Documented On 08/23/2023 5:51PM By MYESHA VALLECILLO MD ; [facility] Medications Administered Includes: Administered Medications from [...] 98 Last Documented: On 09/07/2023 8:36AM ; [facility] Results Includes: Results discussed during [...] last was about 10 years ago in [place], and showed a few small polyps. He [...] 06/10/2023 Last Documented On 4 8:33AM ; [facility] Consuming 5 or more drinks per day None 06/10/2023 Last Documented On 4 8:33AM ; [facility] Not recovering alcoholic 06/10/2023 Last Documented On 4 8:33AM ; [facility] Not recovering from substance abuse 05/21 Last Documented On 4 8:33AM ; [facility] Number of times used recreat ional drug/ prescription drug for nonmedical reason. None 06/10/2023 Last Documented On 4 8:33AM ; [facility] No recent change in sleep 01/21/2023 Last Documented On 4 8:33AM ; [facility] Alcohol 01/21/2023 Last Documented On 4 8:33AM ; [facility] Amount of alcohol per day: 1-2 3 Last Documented On 4 8:33AM ; [facility] Not using drugs 01/21/2023 Last Documented On 4 8:33AM ; [facility] Not a job-related injury 08/26/2022 Last Documented On 4 8:33AM ; [facility] Not using alcohol 05/08/2022 Last Documented On 4 8:33AM ; [facility] Former smoker 05/08/2022 Last Documented On 4 8:33AM ; [facility] Tobacco non-user 03/13/2021 Last Documented On 4 8:33AM ; [facility] Current nonsmoker 05/24/2020 Last Documented On 4 8:33AM ; [facility] Social history changed 11/30/2019 Last Documented On 4 8:33AM ; [facility] Non-smoker 11/30/2019 Last Documented On 4 8:33AM ; [facility] Smoking status : Never smoker 06/26/2019 Last Documented On 4 8:33AM ; [facility] No tobacco use 12/19/2018 Last Documented On 4 8:33AM ; [facility] Procedures and Surgical History Includes: Procedures from this encounter Procedures Code Diagnosis Performing Provider Service L ocation Service Date no influenza immunization Last Documented On 4 8:37AM ; [facility] no history of pneumococcal vaccine Last Documented On 4 8:37AM ; [facility] Surgical History Last Updated No Pacemaker 01/21/2023 Last Documented On 4 8:33AM ; [facility] Medical History Includes: Medical History addressed during this encounter Description Last Updated Blood pressure was high 01/21/2023 Last Documented On 4 8:33AM ; [facility] Hypertension 01/21/2023 Last Documented On 4 8:33AM ; [facility] No exposure to a contagious disease 04/2022 Last Documented On 4 8:33AM ; [facility] No previous psychiatric treatment 2022 Last Documented On 4 8:33AM ; [facility] Not taking OTC medications 01/21/2023 Last Documented On 4 8:33AM ; [facility] Taking medication for high blood pressur e 01/21/2023 Last Documented On 4 8:33AM ; [facility] CT/MRI [facility] dec 30 01/21/2023 Last Documented On 4 8:33AM ; [facility] Message/Acupressure 01/21/2023 Last Documented On 4 8:33AM ; [facility] Moderate to severe pain 01/21/2023 Last Documented On 4 8:33AM ; [facility] No Pain Pump 01/21/2023 Last Documented On 4 8:33AM ; [facility] No Spinal cord stimulator 01/21/2023 Last Documented On 4 8:33AM ; [facility] Please list all illnesses/co nditions you have been diagnosed with: Spinal stenosis. sciatica. bulging diskno spring on either foot right foot ortho issues 01/21/2023 Last Documented On 4 8:33AM ; [facility] Please list all surgeries: Foot surgery august 2022 [facility] [address] [place] 01/21/2023 Last Documented On 4 8:33AM ; [facility] X-rays [facility] dr vallecillo referred xray nov 2022 01/21/2023 Last Documented On 4 8:33AM ; [facility] History of colonoscopy fiberoptic was pe rformed 11/25/2022 12/09/2022 Last Documented On 4 8:33AM ; [facility] History of hyperlipidemia 02/06/2019 Last Documented On 4 8:33AM ; [facility] History of essential hypertension 2018 Last Documented On 4 8:33AM ; [facility] No recent change in medical history 11/22 Last Documented On 4 8:33AM ; [facility] Family History Includes: Family History addressed [...] Time Diagnosis FOLLOW UP CHARLOTTE UNGER MD [facility] 09/07/19 24 8:28AM 8:43AM Postoperative Exam Insurance Includes: Active Insurance Policies Plan Name Member ID Group # Subscriber Relationship Effect sally Dates 1 - [employer] [id number] SHAKA CLIFFORD Self Clinical Notes Includes: Clinical Notes from this encounter * Progress note Date Encounter Last Documented by 09/07/2023 FOLLOW UP Last documented on 09/07/2023; 1:11 PM, CHARLOTTE UNGER MD; [facility] Top of Document This [...] last was about 10 years ago in [place], and showed a few small polyps. He [...] list all surgeries: Foot surgery august [address] [facility] [address] [place]. Medical: No previous psychiatric treatment. Moderate to severe pain and Hypertension. No Spinal cord stimulator and no Pain Pump. Surgical / Procedural: No Pacemaker. Medications: Taking medication for high blood pressure. Not taking OTC medications. Tests: Blood pressure was high, X-rays [facility] dr vallecillo referred xray nov 2022, and CT/MRI [facility] jan 18. Exposure: No exposure to [...]
--- OUTSIDE RECORDS SUMMARY | 2024-04-13 20:54 | XMS_ITS | Clinical Summary ---
Author Organization [facility] Address [address] [place] [address] Phone Care Team Providers Care Venetian Blind Assembler Name Role Phone MYESHA VALLECILLO MD Primary Care Provider [phone] Reason for Visit and Chief Complaint [Patient Encounter] Problems Includes: Problems addressed during this encounter and other active Problems All Visits Onset Date Resolved Date Provider Condition S tatus Hypogonadism 10/07/2023 MYESHA VALLECILLO MD Acti ve Last Documented On 4 3:15PM ; [facility] Limb Pain Lower Leg 12/24/2022 [facility] Active Last Documented On 3 9:14AM ; [facility] Note: right Sleep Disorder Hypersomnia 07/31/2021 MYESHA VALLECILLO MD Active Last Documented On 3 5:17PM ; [facility] Hyperlipidemia 08/01/2019 YMESHA VALLECILLO MD Ac tive Last Documented On 3 5:11PM ; [facility] Encounter for immunization 03/23/2019 LAINE COLBY MD Active Last Documented On 0 12:46PM ; [facility] Osteoarthritis Primary Generalized 12/19/2018 Farzad VALLECILLO MD Active Last Documented On 9 11:13AM ; [facility] Essential Hypertension 12/19/2018 MYESHA DIAZ MD Active Last Documented On 9 11:13AM ; [facility] Hypothyroidism 12/19/2016 MYESHA VALLECILLO MD Ac tive Last Documented On 9 11:13AM ; [facility] Plan of Treatment No [...] 08/23/2023 5:51PM By MYESHA VALLECILLO MD ; [facility] Pregabalin 75 MG Oral Capsule 07/21/2023 Provider: GUILLE REESE MD Diagnosis: Radiculopathy, l umbar region TAKE 1 CAPSULE ORALLY EVERY 12 HOURS Last Documented On 07/21/2023 8:32AM By Guille Reese MD ; [facility] Testosterone 25 MG/2.5GM (1%) Transdermal Gel 06/10/2023 Provider: MYESHA VALLECILLO MD Diagnosis: Testicular dysfu nction, unspecified APPLY TO CLEAN, INTACT SKIN TWICE DAILY Last Documented On 06/10/2023 2:40PM By MYESHA VALLECILLO MD ; [facility] Ibuprofen 600 MG Oral Tablet 06/10/2023 Provider: MYESHA VALLECILLO MD Diagnosis: Primary generali zed (osteo)arthritis One tablet three times a day w food Last Documented On 06/10/2023 2:40PM By MYESHA VALLECILLO MD ; [facility] Fluticasone Propionate 50 MCG/ACT Nasal Suspension 06/10/2023 Provider: MYESHA VALLECILLO MD Diagnosis: Allergic rhiniti s due to pollen as directed 1 sq each nostri l 1-2xd as needed Last Documented On 06/10/2023 2:40PM By MYESHA VALLECILLO MD ; [facility] SB Low Dose ASA EC 81 MG Oral Tablet Delayed Release 1 04/08/2018 Provider: Diagnosis: Last Documented On 02/06/2019 10:36AM By MYESHA VALLECILLO MD ; [facility] Medications Administered Includes: Administered Medications from this [...] Time Diagnosis [Patient Encounter] CHARLOTTE UNGER MD [facility] 07/16/19 24 11:09AM 11:59PM Insurance Includes: Active Insurance Policies Plan Name Member ID Group # Subscriber Relationship Effect sally Dates 1 - [employer] [id number] SHAKA COTO Self Clinical Notes Includes: Clinical Notes from this encounter No Clinical Notes Recorded
--- OUTSIDE RECORDS SUMMARY | 2024-04-13 20:54 | XMS_ITS | Clinical Summary ---
Author Organization [facility] Address [address] [place] [address] Phone Care Team Providers Care Product Specialist Name Role Phone MYESHA VALLECILLO MD Primary Care Provider [phone] Reason for Visit and Chief Complaint * PHONE CALL Problems Includes: Problems addressed during this encounter and other active Problems All Visits Onset Date Resolved Date Provider Condition S tatus Hypogonadism 10/07/2023 MYESHA VALLECILLO MD Acti ve Last Documented On 4 3:15PM ; [facility] Limb Pain Lower Leg 12/24/2022 HAMMAD Frederick Active Last Documented On 3 9:14AM ; [facility] Note: right Sleep Disorder Hypersomnia 07/31/2021 MYESHA VALLECILLO MD Active Last Documented On 3 5:17PM ; [facility] Hyperlipidemia 08/01/2019 MYESHA VALLECILLO MD Ac tive Last Documented On 3 5:11PM ; [facility] Encounter for immunization 03/23/2019 LAINE COLBY MD Active Last Documented On 0 12:46PM ; [facility] Osteoarthritis Primary Generalized 12/19/2018 Farzad VALLECILLO MD Active Last Documented On 9 11:13AM ; [facility] Essential Hypertension 12/19/2018 MYESHA DIAZ MD Active Last Documented On 9 11:13AM ; [facility] Hypothyroidism 12/19/2016 MYESHA VALLECILLO MD Ac tive Last Documented On 9 11:13AM ; [facility] Plan of Treatment No [...] 08/23/2023 5:51PM By MYESHA VALLECILLO MD ; [facility] Pregabalin 75 MG Oral Capsule 07/21/2023 Provider: GUILLE REESE MD Diagnosis: Radiculopathy, l umbar region TAKE 1 CAPSULE ORALLY EVERY 12 HOURS Last Documented On 07/21/2023 8:32AM By Guille Reese MD ; [facility] Testosterone 25 MG/2.5GM (1%) Transdermal Gel 06/10/2023 Provider: MYESHA VALLECILLO MD Diagnosis: Testicular dysfu nction, unspecified APPLY TO CLEAN, INTACT SKIN TWICE DAILY Last Documented On 06/10/2023 2:40PM By MYESHA VALLECILLO MD ; [facility] Ibuprofen 600 MG Oral Tablet 06/10/2023 Provider: MYESHA VALLECILLO MD Diagnosis: Primary generali zed (osteo)arthritis One tablet three times a day w food Last Documented On 06/10/2023 2:40PM By MYESHA VALLECILLO MD ; [facility] Fluticasone Propionate 50 MCG/ACT Nasal Suspension 06/10/2023 Provider: MYESHA VALLECILLO MD Diagnosis: Allergic rhiniti s due to pollen as directed 1 sq each nostri l 1-2xd as needed Last Documented On 06/10/2023 2:40PM By MYESHA VALLECILLO MD ; [facility] SB Low Dose ASA EC 81 MG Oral Tablet Delayed Release 1 04/08/2018 Provider: Diagnosis: Last Documented On 02/06/2019 10:36AM By MEYSHA VALLECILLO MD ; [facility] Medications Administered Includes: Administered Medications [...] Diagnosis * PHONE CALL GUILLE REESE MD [facility] 4 8:45AM 11:59PM Insurance Includes: Active Insurance Policies Plan Name Member ID Group # Subscriber Relationship Effect sally Dates - [employer] [id number] SHAKA COTO Self Clinical Notes Includes: Clinical Notes from this encounter No Clinical Notes Recorded
== END 2024-04-13 14:42 | disposition home or self-care (01) ==
LOC: ANHSURGERY 05:59 → ANH3MEDSUR 14:28
PROVIDERS: PCP Clinical Nurse Specialist; Visit Provider Neurological Surgery
PROC: (CPT 63005; principal; 2024-04-12 07:30)
DX: M48.062 Spinal stenosis, lumbar region with neurogenic claudication (principal); M71.38 Other bursal cyst, other site; Z87.891 Personal history of nicotine dependence
CPT/HCPCS: 63048; 63047; 97116; 97161; 97165; 97530; 97535; 99199; A9270; J0690; J1100; J2003; J2250; J2405; J2704; J2785; J3010; J7120

== ENCOUNTER 2024-05-19 11:18 | Outpatient (CLI) | payer MEDICARE, SELFPAY ==
[2024-05-19 18:30] LABS: Basophils Absolute Auto 0.1 K/mm3 (0.0-0.1); Basophils Percent Auto 1.1 % (0.2-1.2); Eosinophils Absolute Auto 0.2 K/mm3 (0-0.3); Eosinophils Percent Auto 2.6 % (0-4.4); Hematocrit 41.8 % (42.0-52.0); Hemoglobin 13.5 g/dL (14.0-18.0); Immature Granulocyte Absolute 0.02 K/mm3 (0.00-0.031); Immature Granulocyte Percent A 0.3 % (0-0.5); Lymphocytes Absolute Auto 1.43 K/mm3 (0.9-3.2); Lymphocytes Percent Auto 21.9 % (18.3-44.2); Mean Corpuscular HGB Conc 32.3 g/dl (32-36); Mean Corpuscular Hemoglobin 28.9 pg (26-34); Mean Corpuscular Volume 89.5 fl (80-100); Mean Platelet Volume 10.1 fl (7.4-10.4); Monocytes Absolute Auto 0.4 K/mm3 (0.1-0.6); Monocytes Percent Auto 5.8 % (2.6-8.5); Neutrophils Absolute Auto 4.5 K/mm3 (1.3-6.7); Neutrophils Percent Auto 68.3 % (45.5-73.1); Platelet Count Result 256 k/mm3 (150-375); Red Blood Count 4.67 M/mm3 (4.6-6.20); Red Cell Distribution Width 13.7 % (11.5-14.5); White Blood Count 6.5 K/mm3 (4.5-10.0)
[2024-05-19 18:41] LABS: Hemoglobin A1C 6.2 % (<5.7)
[2024-05-19 18:42] LABS: Alanine Aminotransferase 23 U/L (6-50); Albumin Level 4.4 g/dL (3.5-5.1); Alkaline Phosphatase 94 U/L (38-126); Anion Gap 8 mmol/L (4-12); Aspartate Amino Transferase 41 U/L (17-59); Bilirubin,Total 0.9 mg/dL (0.2-1.3); Blood Urea Nitrogen 17 mg/dL (9-20); Calcium 9.2 mg/dL (8.4-10.2); Carbon Dioxide 27 mmol/L (22-30); Chloride 101 mmol/L (98-107); Cholesterol 262 mg/dL (0-200); Estimated Glomerular Filt Rate > 60; Glucose 86 mg/dL (65-110); HDL Direct 61 mg/dL; Sodium 136 mmol/L (137-145); Triglycerides 99 mg/dL (<150)
[2024-05-19 18:53] LABS: Free T3 3.17 pg/mL (2.45-5.93); Free T4 Free Thyroxine 1.08 ng/dL (0.78-2.19); Vitamin D 25 Hydroxy 20.9 ng/mL
[2024-05-19 18:54] LABS: LDL Cholesterol Direct 166 mg/dL
[2024-05-19 19:13] LABS: Prostate Specific Antigen 2.9 ng/mL (< OR = 4.0)
== END 2024-05-19 11:19 | disposition home or self-care (01) ==
LOC: ANHGOSHLAB 11:20
PROVIDERS: PCP Internal Medicine; Visit Provider Clinical Nurse Specialist
DX: E03.9 Hypothyroidism, unspecified (principal); R03.0 Elevated blood-pressure reading, without diagnosis of hypertension; E55.9 Vitamin D deficiency, unspecified; R73.01 Impaired fasting glucose; R53.82 Chronic fatigue, unspecified; E29.1 Testicular hypofunction; Z12.5 Encounter for screening for malignant neoplasm of prostate
CPT/HCPCS: 36415; 80053; 80061; 82306; 82607; 83036; 84153; 84402; 84403; 84439; 84443; 84481; 85025; G0103

== ENCOUNTER 2024-06-16 09:15 | Outpatient (RCR) | payer MEDICARE, SELFPAY ==
--- NOTE | 2024-05-09 10:04 | OPREHPOC ---
Outpatient Therapy Plan of Care This is a Multidisciplinary Plan of Care that may contain components documented by all disciplines (PT, OT, and ST.) PT Problem 1 PT Problem #1 Knowledge Deficit PT Goal 1 Goal / Goal Update Pt to be IND with issued HEP Target Visit 10 PT Problem 2 PT Problem #2 Pain PT Goal 1 Goal / Goal Update 1. Pt to report back pain no greater than 3/10 in the last week 2. Pt to decline radicular symptoms in the last week 3. Pt to report no greater than 20% disability on the Oswestry. Target Visit 10 PT Problem 3 PT Problem #3 Impaired Functional Mobility PT Goal 1 Goal / Goal Update 1. Pt to be able to lift and carry 30 lb from ground level. PT Problem 4 PT Problem #4 Impaired Gait PT Goal 1 Goal / Goal Update 1. Pt to be able to walk for 20 mins without an increase in pain. 2. Pt to improve 2 min walk distance from 400ft to 500ft. Target Visit 10
--- NOTE | 2024-05-09 10:05 | PTOPEVAL1 ---
Assessment and note entered by Alan Gomes, PT, DPT Evaluation Information Assessment Status Evaluation Diagnosis L3-L5 laminectomy Onset 04/12/24 Subjective Information Pt had a L3-L5 laminectomy on 04/12/24. He states so far he has had a slow and painful recovery. He states he feels like he is more sore and stiff than before his surgery, he states if he is unsure at this point if his surgery was a success or not . He states all he can do at this point is limp around his house. States he has lost a lot of muscle mass since his pain started. He reports 3 surgeries for his R foot. He states he feels like there was a miscommunication when being explained as how he would recover. Pt would like to be able to get back to hiking, cycling, and be able to manage more of his housework. Reported Pain Level Pain Score 3: Self Report Assessment PT Clinical Summary Pt presents to therapy today for his initial evaluation following a L3-L5 laminectomy on . Today he demonstrates decreased hip motion, decreased R hip strength, gait deviations, poor body mechanics, and decreased functional mobility from his baseline. He ambulates with an antalgic pattern favoring his R side and has residual weakness of his RLE. Skilled therapy services are indicated to improve body mechanics, normalize gait pattern, and to return to PLOF without radicular symptoms. Plan of Care Interventions Electrical Stimulation,Gait Training,Hot Pack/Cold Pack,Manual Therapy,Neuro Re-education,Patient/ Caregiver Education,Therapeutic Activities, Therapeutic Exercise PT Services Indicated Yes Treatment Frequency and 2x/wk for 10 visits Duration These treatments will address the objective and functional deficits as defined above. The patient will be advanced safely and appropriately in order for the patient to progress towards his/her prior level of function. Additional exercises will be introduced and as well as a comprehensive home exercise program upon discharge, if needed, ?to ensure carryover of functional gains achieved in the clinic. This treatment plan has been reviewed and agreement upon by the patient.
--- NOTE | 2024-05-22 11:52 | PCPTNOTE ---
Patient no showed his appointment on this date, 05/22/24. Called patient and left a voicemail reminding him of his next appointment on 05/25/24 at 11:15.
--- NOTE | 2024-06-05 11:37 | PCPTNOTE ---
Patient did not show up for scheduled appointment this date. Called and LVM with follow up instructions.
--- NOTE | 2024-06-16 10:11 | OPREHPOC ---
Outpatient Therapy Plan of Care This is a Multidisciplinary Plan of Care that may contain components documented by all disciplines (PT, OT, and ST.) PT Problem 1 PT Problem #1 Knowledge Deficit PT Goal 1 Goal / Goal Update Pt to be IND with issued HEP Target Visit 10 Progress Met PT Problem 2 PT Problem #2 Pain PT Goal 1 Goal / Goal Update 1. Pt to report back pain no greater than 3/10 in the last week 2. Pt to decline radicular symptoms in the last week 3. Pt to report no greater than 20% disability on the Oswestry. Target Visit 10 Progress Partially Met PT Problem 3 PT Problem #3 Impaired Functional Mobility PT Goal 1 Goal / Goal Update 1. Pt to be able to lift and carry 30 lb from ground level. Progress Not Met PT Problem 4 PT Problem #4 Impaired Gait PT Goal 1 Goal / Goal Update 1. Pt to be able to walk for 20 mins without an increase in pain. 2. Pt to improve 2 min walk distance from 400ft to 500ft. Target Visit 10 Progress Met
--- NOTE | 2024-06-16 10:11 | PTOPDC ---
Assessment and note entered by Adin Rivera, PT Evaluation Information Assessment Status Discharge Diagnosis L3-L5 laminectomy Onset 04/12/24 Subjective Information Reports that overall he is doing well and headed in the right direction. He has been complaint at home and is looking forward to getting back to the gym which is near his house. No concerns at this time with exercise or regimen. Reported Pain Level Pain Score 0: Self Report Assessment PT Clinical Summary Patient has met majority of goals for therapy at this time. Still limited by protocol for lifting restrictions. Overall strength and hip ROM has seen significant improvement along with mobility and gait. Patient is suitable for discharge to [facility] at this time. Plan of Care PT Services Indicated Yes
== END 2024-07-04 10:27 | disposition home or self-care (01) ==
LOC: ANHGOSHPT 09:15
PROVIDERS: PCP Internal Medicine; Visit Provider Neurological Surgery
DX: M48.062 Spinal stenosis, lumbar region with neurogenic claudication (principal); Z98.890 Other specified postprocedural states
CPT/HCPCS: 97110; 97140; 97161; 97530

== ENCOUNTER 2024-09-18 14:06 | Outpatient (CLI) | payer MEDICARE, SELFPAY ==
[2024-09-18 18:52] LABS: Cholesterol 227 mg/dL (0-200); HDL Direct 58 mg/dL; Triglycerides 102 mg/dL (<150)
[2024-09-18 19:01] LABS: Hemoglobin A1C. 6.3 % (<5.7)
[2024-09-18 19:04] LABS: LDL Cholesterol Direct 130 mg/dL
== END 2024-09-18 14:07 | disposition home or self-care (01) ==
LOC: ANHGOSHLAB 14:09
PROVIDERS: PCP Internal Medicine; Visit Provider Clinical Nurse Specialist
DX: R73.01 Impaired fasting glucose (principal); E78.5 Hyperlipidemia, unspecified
CPT/HCPCS: 36415; 80061; 83036

== ENCOUNTER 2024-09-28 09:30 | Outpatient (CLI) | payer MEDICARE, SELFPAY ==
--- OUTSIDE RECORDS SUMMARY | 2024-09-28 09:36 | XMS_ITS | Continuity of Care Document ---
Author Organization [facility] Address [address] [place] [address] Care Team Providers Care Journeyman [employer] Name Role Phone Barry Restrepo MD Unavailable [...] Copied on Encounter [facility], [address] [facility], [place], [address], [place] Imaging [facility] [address] No Information 5 Kaye Reddy. [address], [address], [place], [address], [place]. tel:[phone] Referring Provider: Barry Restrepo, [address], [place], [address]. tel:[phone] Offic/outpt [facility], [address] [place] [address], [address], [facility] Office, [address] follow up (chief complaint) Coronary artery disease involving solomon coronary artery of solomon heart without angina pectorisMixed hyperlipidemiaNo nrheumatic mitral valve regurgitationPri galo hypertension 4 Kaye Reddy. [address], [address], [place], [address], [place]. tel:[phone] Referring Provider: * Ask Pt For PCP. [facility], [address] [place] [address], [facility], [facility] Office, [address] No Information 4 Bruna Salgado. [address], [address], [place], [place], [id number], [place]. tel:[phone] Offic/outpt [facility], [address] [place] [address], [address], [facility] Office, [address] F/U (chief complaint) Coronary artery disease involving solomon coronary artery of solomon heart without angina pectorisMixed hyperlipidemiaNo nrheumatic mitral valve regurgitationDep ression, unspecified depression typeDiastolic dysfunction 4 Bruna Salgado. [address], [address], [place], [place], [id number], [place]. tel:[phone] Referring Provider: * Ask Pt For PCP. [facility], [address] [place] [address], [address], [place] [facility] Office, [address] No Information 4 Marcelino Larsen. [address], [address], [place], [address], [place]. tel:[phone] Offic/outpt [facility], [address] [place] [address], [address], [facility] Office, [address] F/U (chief complaint) Coronary artery disease involving solomon coronary artery of solomon heart without angina pectorisMixed hyperlipidemiaNo nrheumatic mitral valve regurgitationDep ression, unspecified depression typeDiastolic dysfunction 3 Bruna Salgado. [address], [address], [place], [place], [id number], [place]. tel:[phone] Referring Provider: * Ask Pt For PCP. [facility], [address] [place] [address], [facility], [facility] Office, [address] F/U 2 (chief complaint) Coronary artery disease involving solomon coronary artery of solomon heart without angina pectorisMixed hyperlipidemiaNo nrheumatic mitral valve regurgitationDep ression, unspecified depression typeDiastolic dysfunctionBug bite with infection, initial encounter 3 Bruna Salgado. [address], [address], [place], [place], [id number], [place]. tel:[phone] Offic/outpt [facility], [address] [place] [address], [facility], [facility] Office, [address] *Coronary Artery Disease (chief complaint) Coronary artery disease involving solomon coronary artery of solomon heart without angina pectorisMixed hyperlipidemiaNo nrheumatic mitral valve regurgitationDep ression, unspecified depression typeDiastolic dysfunctionBug bite with infection, initial encounter 3 Marcelino Larsen. [address], [address], [place], [address], [place]. tel:[phone] Referring Provider: Rocael Silvestre MD P, [address], [place], [address]. tel:[phone] [facility], [address] [place] [address], [facility], [facility] Office, [address] No Information 3 Marcelino Larsen. [address], [address], [place], [address], [place]. tel:[phone] Offic/outpt [facility], [address] [place] [address], [address], [facility] Office, [address] *Coronary Artery Disease (chief complaint) Coronary artery disease involving solomon coronary artery of solomon heart without angina pectorisMixed hyperlipidemiaNo nrheumatic mitral valve regurgitationDep ression, unspecified depression typeDiastolic dysfunctionBug bite with infection, initial encounter 2 Marcelino Larsen. [address], [address], [place], [address], [place]. tel:[phone] Referring Provider: Adolfo Morejon, [address], [place], [address] . tel:[phone] Offic/outpt [facility], [address] [place] [address], [address], [facility] Office, [address] *Coronary Artery Disease (chief complaint) Cardiovasc ular Review (chief complaint) Coronary artery disease involving solomon coronary artery of solomon heart without angina pectorisMixed hyperlipidemiaNo nrheumatic mitral valve regurgitationDep ression, unspecified depression typeDiastolic dysfunction 2 Marcelino Larsen. [address], [address], [place], [address], [place]. tel:[phone] Referring Provider: Adolfo Morejon, [address], [place], [address] . tel:[phone] Offic/outpt [facility], [address] [place] [address], [address], [place] [facility] Office, [address] *Coronary Artery Disease (chief complaint) Cardiovasc ular Review (chief complaint) Coronary artery disease involving solomon coronary artery of solomon heart without angina pectorisMixed hyperlipidemiaNo nrheumatic mitral valve regurgitationDep ression, unspecified depression typeDiastolic dysfunction 1 Marcelino Larsen. [address], [address], [place], [address], [place]. tel:[phone] Referring Provider: Rocael Silvestre MD P, [address], [place], [address]. tel:[phone] [facility], [address] [place] [address], [facility], [facility] Office, [address] Mixed hyperlipidemiaCa rdiomegaly 1 Marcelino Larsen. [address], [address], [place], [address], [place]. tel:[phone] Offic/outpt [facility], [address] [place] [address], [address], [facility] Office, [address] *Coronary Artery Disease (chief complaint) Cardiovasc ular Review (chief complaint) Coronary artery disease involving solomon coronary artery of solomon heart without angina pectorisMixed hyperlipidemiaNo nrheumatic mitral valve regurgitationDep ression, unspecified depression typeDiastolic dysfunction 1 Marcelino Larsen. [address], [address], [place], [address], [place]. tel:[phone] Referring Provider: Rocael Silvestre MD P, [address], [place], [address]. tel:[phone] Offic/outpt [facility], [address] [place] [address], [facility], [facility] Office, [address] *Coronary Artery Disease (chief complaint) Cardiovasc ular Review (chief complaint) Coronary artery disease involving solomon coronary artery of solomon heart without angina pectorisMixed hyperlipidemiaNo nrheumatic mitral valve regurgitationDep ression, unspecified depression typeDiastolic dysfunction 0 Marcelino Larsen. [address], [address], [place], [address], [place]. tel:[phone] Referring Provider: Rocael Silvestre MD P, [address], [place], [address]. tel:[phone] Physician Telephone Services; 5-10 Min [facility], [address] [place] [address], [facility], [facility] Office, [address] Coronary artery disease involving solomon coronary artery of solomon heart without angina pectorisMixed hyperlipidemiaNo nrheumatic mitral valve regurgitationDia stolic dysfunctionAdvic e given about COVID-19 virus by telephone 0 Marcelino Larsen. [address], [address], [place], [address], [place]. tel:[phone] Referring Provider: Chava Benson [address], [place], [address]. tel:[phone] [facility], [address] [place] [address], [address], [facility] Office, [address] Nonrheumatic mitral (valve) insufficiencyNon rheumatic tricuspid (valve) insufficiencyCar diomegaly 9 Michael Weir. [address], [address], [place], [address], [place]. tel:[phone] Referring Provider: Chava Benson [address], [place], [address]. tel:[phone] Offic/outpt [facility], [address] [place] [address], [address], [facility] Office, [address] *Coronary Artery Disease (chief complaint) Cardiovasc ular Review (chief complaint) Coronary artery disease involving solomon coronary artery of solomon heart without angina pectorisMixed hyperlipidemiaNo nrheumatic mitral valve regurgitationDep ression, unspecified depression typeDiastolic dysfunctionOther specified counseling 9 Marcelino Larsen. [address], [address], [place], [address], [place]. tel:[phone] Referring Provider: Rocael Silvestre MD P, [address], [place], [address]. tel:[phone] [facility], [address] [place] [address], [address], [facility] Office, [address] No Information 9 Marcelino Larsen. [address], [address], [place], [address], [place]. tel:[phone] Family History Family Member Type Diagnosis Age At Onset Mother Problem (finding) AF Father Problem (finding) CAD in father/brother a t age <55 Mother Problem (finding) malignant neop lasm of ovary (Cause Of ) Father Problem (finding) Myocardial infarction ( Cause Of ) Payers Payer name Insurance type Covered green party ID Otoniel cazares(s) Medicare 16 Mario [id number] Wing [id number] Social History Type Description Quantity Date Captured [...] ordered Referral Referred To: ADOLFO JEFFRIES [address] [place], [place], [id number] Ordered: Referrals: Allopathic & Osteopathic Physicians : Family Medicine. ADOLFO JEFFRIES ordered Referral Referred To: ROCAEL SILVESTRE [address] [place], [phone] Ordered: Referrals: Allopathic & Osteopathic Physicians : Family Medicine. ROCAEL SILVESTRE ordered Appointment Rocael Gee BOOKED History Of Present Illness Encounter Date Complaint [...] >4Hospitalizations: n/a Family Hx/Cardiac Related: Father: from [place] at 64 y.o Occupation: Retired, lives alone Smoking Drugs Alcohol: n/a. F/U Primary Cardiolo gist: Chava Benson NicolasJesús 62 y.o male came in for a [...] >4Hospitalizations: n/a Family Hx/Cardiac Related: Father: from [place] at 64 y.o Occupation: Retired, lives alone Smoking Drugs Alcohol: n/a. F/U 2 Primary Cardiolo gist: Chava AbreunomanodellManuel 62 y.o [...] day 3days a week. 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 Cardiovascular Review The fran[employer] has had no chest discomfort suggestive [...] 2 miles. He also went back to [facility] 2 months ago.No CP or palpitations with [...] in general. He continues to go to [employer] 3 times a week. he was changed from Prozac to Paxil by his psychiatrist. Functional Status Date Functional Assessmen t No Information Instructions Date Instruction Additional Infor surendra Blood Pressure Diary Blood Pressure Diary Assessments Type Assessment Date No Information Patient Care Teams Name Effective Dates (start - stop) Status Members No Information
[2024-09-28 19:27] LABS: Alanine Aminotransferase 34 U/L (6-50); Aspartate Amino Transferase 41 U/L (17-59)
== END 2024-09-28 09:31 | disposition home or self-care (01) ==
LOC: ANHGOSHLAB 09:32
PROVIDERS: PCP Internal Medicine; Visit Provider Podiatrist Foot & Ankle Surgery
DX: B35.1 Tinea unguium (principal)
CPT/HCPCS: 36415; 84450; 84460

== ENCOUNTER 2025-01-01 11:36 | Outpatient (CLI) | payer MEDICARE, SELFPAY ==
--- NOTE | ~2025-01-01 | US_ITS ---
LEFT LOWER EXTREMITY VENOUS DUPLEX Clinical History: Z01.818 - Encounter for other preprocedural examination COMPARISON: None TECHNIQUE: Grayscale, color, duplex/spectral Doppler sonography left leg FINDINGS: Left leg common femoral, femoral, popliteal veins compressible and color Doppler patent. Posterior tibial vein thrombus. Normal augmentation with distal compression. No internal echoes. Avascular heterogeneous collection upper calf, area of pain per patient IMPRESSION: 1. Thrombus within posterior tibial veins. 2. No [id number] DVT. 3. Heterogeneous lesion along upper calf, possibly hematoma. Recommend clinical surveillance until resolution or further characterization if persistence or enlargement.. Reviewed, dictated and finalized at location R. IMPRESSION: 1. Thrombus within posterior tibial veins. 2. No [id number] DVT. 3. Heterogeneous lesion along upper calf, possibly hematoma. Recommend clinica l surveillance until resolution or further characterization if persistence or e nlargement..
[2025-01-01 13:41] LABS: Hematocrit 45.9 % (42.0-52.0); Hemoglobin 14.5 g/dL (14.0-18.0); Immature Granulocyte Percent A 0.5 % (0-0.5); Lymphocytes Absolute Auto 2.22 K/mm3 (0.9-3.2); Mean Corpuscular HGB Conc 31.6 g/dl (32-36); Mean Corpuscular Hemoglobin 27.9 pg (26-34); Mean Corpuscular Volume 88.4 fl (80-100); Nucleated Red Blood Cells Absolute Auto 0.000 K/mm3 (0.0-0.012); Nucleated Red Blood Cells Perc 0.0 % (0.0-0.2); Platelet Count Result 301 k/mm3 (150-375); Red Blood Count 5.19 M/mm3 (4.6-6.20); White Blood Count 10.3 K/mm3 (4.5-10.0)
[2025-01-01 13:47] LABS: Add Urine Microscopic? NO; Appearance Urine Clear (Clear); Glucose Urine UA Negative (Negative); Leukocyte Esterase Ur Negative LEU/UL (Negative); Nitrate Urine Negative (Negative); Specific Grav Ur 1.019 (1.001-1.035)
[2025-01-01 14:02] LABS: Hemoglobin A1C 5.9 % (<5.7)
[2025-01-01 14:18] LABS: Alanine Aminotransferase 25 U/L (6-50); Albumin Level 4.4 g/dL (3.5-5.1); Alkaline Phosphatase 109 U/L (38-126); Anion Gap 7 mmol/L (4-12); Aspartate Amino Transferase 28 U/L (17-59); Bilirubin,Total 0.4 mg/dL (0.2-1.3); Blood Urea Nitrogen 20 mg/dL (9-20); CRP 0.9 mg/dL (<1.0); Calcium 9.1 mg/dL (8.4-10.2); Carbon Dioxide 29 mmol/L (22-30); Chloride 101 mmol/L (98-107); Estimated Glomerular Filt Rate > 60; Glucose 114 mg/dL (65-110); Potassium 4.1 mmol/L (3.4-5.0); Sodium 137 mmol/L (137-145); Total Protein 7.5 g/dL (6.3-8.2)
[2025-01-01 14:51] LABS: Thyroid Stimulating Hormone 2.690 uIU/mL (0.465-4.680)
[2025-01-01 15:04] LABS: HIV 1/2 Ab P24 Ag Result Negative (Negative)
[2025-01-02 16:08] LABS: ANA by IFA Rfx Titer/Pattern Negative (.)
== END 2025-01-01 11:37 | disposition home or self-care (01) ==
PROVIDERS: PCP Internal Medicine; Visit Provider Clinical Nurse Specialist
DX: Z01.818 Encounter for other preprocedural examination (principal); I82.442 Acute embolism and thrombosis of left tibial vein; R63.4 Abnormal weight loss; M62.81 Muscle weakness (generalized); E03.9 Hypothyroidism, unspecified; R73.01 Impaired fasting glucose; M48.062 Spinal stenosis, lumbar region with neurogenic claudication; R53.82 Chronic fatigue, unspecified; R22.42 Localized swelling, mass and lump, left lower limb; Z11.4 Encounter for screening for human immunodeficiency virus [HIV]
CPT/HCPCS: 36415; 80053; 81003; 82085; 82570; 83036; 84443; 85025; 85652; 86038; 86140; 86430; 86703; 86803; 93971; G0432

== ENCOUNTER 2025-01-04 12:54 | Outpatient (CLI) | payer MEDICARE, SELFPAY ==
--- NOTE | ~2025-01-04 | MR_ITS ---
EXAMINATION: MR lower leg LT wo/w con DATE: 01/04/2025 13:53 INDICATION: Acute embolism and thrombosis of the left tibial vein with pain TECHNIQUE: Magnetic resonance imaging (MRI) of the left lower leg was performed without and with 17 mL Multihance intravenous contrast. A marker was placed over the region of maximal pain. Sequences included axial, sagittal and coronal T1-weighted FSE and fluid sensitive FSE STIR, axial T1-weighted FS FSE and post contrast axial and coronal T1-weighted FS FSE were also obtained. The contralateral right lower leg is included on the coronal images. COMPARISON: None. FINDINGS: There is prominent posterior medial predominant subcutaneous edema at the left calf centered around a 13.8 x 6.6 x 3.9 cm complex loculated fluid collection situated between the medial head of the gastrocnemius muscle and the overlying superficial muscular fascia. There a layering fluid fluid levels with increased T1 signal most consistent with an epimysial hematoma. On the postcontrast imaging there are several small foci of active contrast extravasation extending into the hematoma from the muscular side of the hematoma. There is relatively symmetric moderate fatty atrophy of the musculature in the posterior compartments of both calves. Bone marrow signal is normal throughout with no reactive edema, fracture or pathologic marrow replacing process. Diffuse increased T2 signal and enhancement throughout the paired posterior tibial, peroneal, anterior tibial veins, the larger veins in the gastrocnemius muscle and in the left greater saphenous vein without evident venous thrombosis. IMPRESSION: 1. 13.8 x 6.6 x 3.9 cm epimysial hematoma at the periphery of the medial head of the left gastrocnemius muscle with several small foci of active contrast extravasation. 2. Relatively symmetric moderate fatty atrophy of the posterior musculature of the bilateral calves. 3. No evident thrombosis in the veins of the left calf. Reviewed, dictated and finalized at location A. IMPRESSION: 1. 13.8 x 6.6 x 3.9 cm epimysial hematoma at the periphery of the medial head o f the left gastrocnemius muscle with several small foci of active contrast extr avasation. 2. Relatively symmetric moderate fatty atrophy of the posterior musculature of the bilateral calves. 3. No evident thrombosis in the veins of the left calf.
== END 2025-01-04 12:55 | disposition home or self-care (01) ==
PROVIDERS: PCP Internal Medicine; Visit Provider Clinical Nurse Specialist
DX: S80.12XA Contusion of left lower leg, initial encounter (principal); I82.442 Acute embolism and thrombosis of left tibial vein; M79.89 Other specified soft tissue disorders; M62.562 Muscle wasting and atrophy, not elsewhere classified, left lower leg; M62.561 Muscle wasting and atrophy, not elsewhere classified, right lower leg; X58.XXXA Exposure to other specified factors, initial encounter
CPT/HCPCS: 73720; A9577

== ENCOUNTER 2025-01-05 08:13 | Outpatient (CLI) | payer MEDICARE, SELFPAY ==
--- OUTSIDE RECORDS SUMMARY | 2024-04-14 04:30 | XMS_ITS | Continuity of Care Document ---
Author Organization [facility] Address [address] [place] [address] Care Team Providers Care It Service Technician Name Role Phone Barry Restrepo MD Unavailable [...] Copied on Encounter [facility], [address] [facility], [place], [address], [place] Imaging [facility] [address] No Information 5 Kaye Reddy. [address], [address], [place], [address], [place]. tel:[phone] Referring Provider: Barry Restrepo, [address], [place], [address]. tel:[phone] Offic/outpt [facility], [address] [place] [address], [address], [facility] Office, [address] follow up (chief complaint) Coronary artery disease involving [place] coronary artery of [place] heart without angina pectorisMixed hyperlipidemiaNo nrheumatic mitral valve regurgitationPri galo hypertension 4 Kaye Reddy. [address], [address], [place], [address], [place]. tel:[phone] Referring Provider: * Ask Pt For PCP. [facility], [address] [place] [address], [facility], [facility] Office, [address] No Information 4 Bruna Salgado. [address], [address], [place], [place], [id number], [place]. tel:[phone] Offic/outpt [facility], [address] [place] [address], [address], [facility] Office, [address] F/U (chief complaint) Coronary artery disease involving [place] coronary artery of [place] heart without angina pectorisMixed hyperlipidemiaNo nrheumatic mitral valve regurgitationDep ression, unspecified depression typeDiastolic dysfunction 4 Bruna Salgado. [address], [address], [place], [place], [id number], [place]. tel:[phone] Referring Provider: * Ask Pt For PCP. [facility], [address] [place] [address], [address], [place] [facility] Office, [address] No Information 4 Marcelino Larsen. [address], [address], [place], [address], [place]. tel:[phone] Offic/outpt [facility], [address] [place] [address], [address], [facility] Office, [address] F/U (chief complaint) Coronary artery disease involving [place] coronary artery of [place] heart without angina pectorisMixed hyperlipidemiaNo nrheumatic mitral valve regurgitationDep ression, unspecified depression typeDiastolic dysfunction 3 Bruna Salgado. [address], [address], [place], [place], [id number], [place]. tel:[phone] Referring Provider: * Ask Pt For PCP. [facility], [address] [place] [address], [facility], [facility] Office, [address] F/U 2 (chief complaint) Coronary artery disease involving [place] coronary artery of [place] heart without angina pectorisMixed hyperlipidemiaNo nrheumatic mitral valve regurgitationDep ression, unspecified depression typeDiastolic dysfunctionBug bite with infection, initial encounter 3 Bruna Salgado. [address], [address], [place], [place], [id number], [place]. tel:[phone] Offic/outpt [facility], [address] [place] [address], [facility], [facility] Office, [address] *Coronary Artery Disease (chief complaint) Coronary artery disease involving [place] coronary artery of [place] heart without angina pectorisMixed hyperlipidemiaNo nrheumatic mitral valve regurgitationDep ression, unspecified depression typeDiastolic dysfunctionBug bite with infection, initial encounter 3 Marcelino Larsen. [address], [address], [place], [address], [place]. tel:[phone] Referring Provider: Rocael Silvestre MD P, [address], [place], [address]. tel:[phone] [facility], [address] [place] [address], [facility], [facility] Office, [address] No Information 3 Marcelino Larsen. [address], [address], [place], [address], [place]. tel:[phone] Offic/outpt [facility], [address] [place] [address], [address], [facility] Office, [address] *Coronary Artery Disease (chief complaint) Coronary artery disease involving [place] coronary artery of [place] heart without angina pectorisMixed hyperlipidemiaNo nrheumatic mitral valve regurgitationDep ression, unspecified depression typeDiastolic dysfunctionBug bite with infection, initial encounter 2 Marcelino Larsen. [address], [address], [place], [address], [place]. tel:[phone] Referring Provider: Adolfo Morejon, [address], [place], [address] . tel:[phone] Offic/outpt [facility], [address] [place] [address], [address], [facility] Office, [address] *Coronary Artery Disease (chief complaint) Cardiovasc ular Review (chief complaint) Coronary artery disease involving [place] coronary artery of [place] heart without angina pectorisMixed hyperlipidemiaNo nrheumatic mitral valve regurgitationDep ression, unspecified depression typeDiastolic dysfunction 2 Marcelino Larsen. [address], [address], [place], [address], [place]. tel:[phone] Referring Provider: Adolfo Morejon, [address], [place], [address] . tel:[phone] Offic/outpt [facility], [address] [place] [address], [address], [place] [facility] Office, [address] *Coronary Artery Disease (chief complaint) Cardiovasc ular Review (chief complaint) Coronary artery disease involving [place] coronary artery of [place] heart without angina pectorisMixed hyperlipidemiaNo nrheumatic mitral valve regurgitationDep ression, unspecified depression typeDiastolic dysfunction 1 Marcelino Larsen. [address], [address], [place], [address], [place]. tel:[phone] Referring Provider: Rocael Silvestre MD P, [address], [place], [address]. tel:[phone] [facility], [address] [place] [address], [facility], [facility] Office, [address] Mixed hyperlipidemiaCa rdiomegaly 1 Marcelino Larsen. [address], [address], [place], [address], [place]. tel:[phone] Offic/outpt [facility], [address] [place] [address], [address], [facility] Office, [address] *Coronary Artery Disease (chief complaint) Cardiovasc ular Review (chief complaint) Coronary artery disease involving [place] coronary artery of [place] heart without angina pectorisMixed hyperlipidemiaNo nrheumatic mitral valve regurgitationDep ression, unspecified depression typeDiastolic dysfunction 1 Marcelino Larsen. [address], [address], [place], [address], [place]. tel:[phone] Referring Provider: Rocael Silvestre MD P, [address], [place], [address]. tel:[phone] Offic/outpt [facility], [address] [place] [address], [facility], [facility] Office, [address] *Coronary Artery Disease (chief complaint) Cardiovasc ular Review (chief complaint) Coronary artery disease involving [place] coronary artery of [place] heart without angina pectorisMixed hyperlipidemiaNo nrheumatic mitral valve regurgitationDep ression, unspecified depression typeDiastolic dysfunction 0 Marcelino Larsen. [address], [address], [place], [address], [place]. tel:[phone] Referring Provider: Rocael Silvestre MD P, [address], [place], [address]. tel:[phone] Physician Telephone Services; 5-10 Min [facility], [address] [place] [address], [facility], [facility] Office, [address] Coronary artery disease involving [place] coronary artery of [place] heart without angina pectorisMixed hyperlipidemiaNo nrheumatic mitral valve regurgitationDia stolic dysfunctionAdvic e given about COVID-19 virus by telephone 0 Marcelino Larsen. [address], [address], [place], [address], [place]. tel:[phone] Referring Provider: Chava Benson [address], [place], [address]. tel:[phone] [facility], [address] [place] [address], [address], [facility] Office, [address] Nonrheumatic mitral (valve) insufficiencyNon rheumatic tricuspid (valve) insufficiencyCar diomegaly 9 Michael Weir. [address], [address], [place], [address], [place]. tel:[phone] Referring Provider: Chava Benson [address], [place], [address]. tel:[phone] Offic/outpt [facility], [address] [place] [address], [address], [facility] Office, [address] *Coronary Artery Disease (chief complaint) Cardiovasc ular Review (chief complaint) Coronary artery disease involving [place] coronary artery of [place] heart without angina pectorisMixed hyperlipidemiaNo nrheumatic mitral valve regurgitationDep ression, unspecified depression typeDiastolic dysfunctionOther specified counseling 9 Marcelino Larsen. [address], [address], [place], [address], [place]. tel:[phone] Referring Provider: Rocael Silvestre MD P, [address], [place], [address]. tel:[phone] [facility], [address] [place] [address], [address], [facility] Office, [address] No Information 9 Marcelino Larsen. [address], [address], [place], [address], [place]. tel:[phone] Family History Family Member Type Diagnosis Age At Onset Mother Problem (finding) AF Father Problem (finding) CAD in father/brother a t age <55 Mother Problem (finding) malignant neop lasm of ovary (Cause Of ) Father Problem (finding) Myocardial infarction ( Cause Of ) Payers Payer name Insurance type Covered democrat ID Otoniel cazares(s) Medicare 16 Mario JOYA [id number] [place] Faby Alaniz [id number] Social History Type Description Quantity Date Captured [...] ordered Referral Referred To: ADOLFO JEFFRIES [address]
[place] [address] [place], [place], [id number] Ordered: Referrals: Allopathic & Osteopathic Physicians : Family Medicine. ADOLFO JEFFRIES ordered Referral Referred To: ROCAEL SILVESTRE [address] [place], [phone] Ordered: Referrals: Allopathic & Osteopathic Physicians : [...] bleeding issues. F/U Primary Cardiolo gist: Chava Benson M.D 62 y.o male came in [...] day 3days a week. Works at a [employer] shop as well.No CP or SOBThe ECG [...] 2 miles. He also went back to [employer] 2 months ago.No CP or palpitations with [...] in general. He continues to go to [employer] 3 times a week. he was changed from Prozac to Paxil by his psychiatrist. Functional Status Date Functional Assessmen t No Information Instructions Date Instruction Additional Infor surendra Blood Pressure Diary Blood Pressure Diary Assessments Type Assessment Date No Information Patient Care Teams Name Effective Dates (start - stop) Status Members No Information
[2025-01-05 09:28] LABS: Hematocrit 41.8 % (42.0-52.0); Hemoglobin 13.4 g/dL (14.0-18.0); Immature Granulocyte Percent A 0.4 % (0-0.5); Lymphocytes Absolute Auto 2.73 K/mm3 (0.9-3.2); Mean Corpuscular HGB Conc 32.1 g/dl (32-36); Mean Corpuscular Hemoglobin 28.3 pg (26-34); Mean Corpuscular Volume 88.2 fl (80-100); Nucleated Red Blood Cells Absolute Auto 0.000 K/mm3 (0.0-0.012); Nucleated Red Blood Cells Perc 0.0 % (0.0-0.2); Platelet Count Result 308 k/mm3 (150-375); Red Blood Count 4.74 M/mm3 (4.6-6.20); White Blood Count 14.2 K/mm3 (4.5-10.0)
[2025-01-05 10:03] LABS: Free T4 Free Thyroxine 1.19 ng/dL (0.78-2.19)
[2025-01-05 10:20] LABS: Free T3 4.48 pg/mL (2.45-5.93)
[2025-01-08 12:08] LABS: CK-BB 0 % (0); CK-MB 0 % (0-3); CK-MM 97 % (97-100); Creatine Kinase,Total 159 U/L (41-331)
== END 2025-01-05 08:14 | disposition home or self-care (01) ==
PROVIDERS: PCP Internal Medicine; Visit Provider Clinical Nurse Specialist
DX: E03.9 Hypothyroidism, unspecified (principal); R73.01 Impaired fasting glucose; M62.81 Muscle weakness (generalized); M48.062 Spinal stenosis, lumbar region with neurogenic claudication; R53.82 Chronic fatigue, unspecified
CPT/HCPCS: 36415; 82550; 82552; 84439; 84481; 85025

== ENCOUNTER 2025-01-05 08:56 | Emergency (ER) | payer MEDICARE, SELFPAY ==
--- OUTSIDE RECORDS SUMMARY | 2024-04-14 04:30 | XMS_ITS | Continuity of Care Document ---
Author Organization [facility] Address [address] [place] [address] Care Team Providers Care Technical Support Intern Name Role Phone Barry Restrepo MD Unavailable Unavailable Allergies, Adverse Reactions, Alerts Substance Reaction Status Criticality No Known Allergies Active No Inform ation Medications Medication Instructions Dosage Effective Dates (start - stop) Status Comments METOPROLOL ER SUCCINATE 100MG TABS TAKE 1 TABLET BY MOUTH DAILY - Active LISINOPRIL 20MG TABLETS TAKE 1 TABLET BY MOUTH EVERY DAY - Active metformin 500 mg tablet take 1 tablet by oral route 2 times every day with morning and evening meals 500 MG - Active Lipitor 80 mg tablet TAKE 1 TABLET BY MOUTH EVERY EVENING - Active omega-3 fatty acids 1,000 mg capsule Take 2 capsule by oral route every day 2 capsule - Active Paxil 20 mg tablet take 1 tablet by oral route every day 1 tablet - Active lorazepam 1 mg tablet take 1 tablet by oral route 4 times every day as needed 1 MG - Active omeprazole 40 mg capsule,delayed release take 1 capsule by oral route every day 40 MG - Active aspirin 81 mg tablet,delayed release take 1 tablet by oral route once a day - Active Seroquel XR 200 mg tablet,extended release take once a day - Active diphenhydramine 25 mg tablet take 1 tablet by oral route every 4 - 6 hours as needed 25 MG - Active Procedures Procedure Date Echo Ecg-routine 12 Lead; W/intrpt 4 Offic/outpt E&m Estab Offic/outpt E&m Estab Advanced Directives Documented Complex e/m visit add on Offic/outpt E&m Estab Advanced Directives Documented Ecg-routine 12 Lead; W/intrpt 3 Offic/outpt E&m Estab Ecg-routine 12 Lead; W/intrpt 3 Offic/outpt E&m Estab Advanced Directives Documented Ecg-routine 12 Lead; W/intrpt 2 Offic/outpt E&m Estab Advanced Directives Documented Ecg-routine 12 Lead; W/intrpt 2 Offic/outpt E&m Estab Complex e/m visit add on Ecg-routine 12 Lead; W/intrpt 1 Offic/outpt E&m Estab Complex e/m visit add on Ecg-routine 12 Lead; W/intrpt 1 Offic/outpt E&m Estab Advanced Directives Documented Ecg-routine 12 Lead; W/intrpt 0 Physician Telephone Services; 5-10 Min A Echo Complete (2D W/ CF & Doppler) Offic/outpt E&m Estab Advanced Directives Documented 19 Ecg-routine 12 Lead; W/intrpt 9 Advance Directives Directive Yes / No Effective Date File Name No Information Encounters Encounter Description Practice Location Reason(s) For Visit Diagnoses Date Provider Providers Copied on Encounter [facility], [address] [facility], [place], [address], [place] [facility] [address] No Information 5 Kaye Reddy. [address], [place], [address], [place]. tel:[phone] Referring Provider: Barry Restrepo, [address], [place], [address]. tel:[phone] Offic/outpt E&m [facility], [address] [place] [address], [address], [facility] Office, [address] follow up (chief complaint) Coronary artery disease involving mary's igloo coronary artery of mary's igloo heart without angina pectorisMixed hyperlipidemiaNo nrheumatic mitral valve regurgitationPri galo hypertension 4 Kaye Reddy. [address], [address], [place], [address], [place]. tel:[phone] Referring Provider: * Ask Pt For PCP. [facility], [address] [place] [address], [facility], [facility] Office, [address] No Information 4 Bruna Salgado. [address], [address], [place], [place], [id number], [place]. tel:[phone] Offic/outpt E&m [facility], [address] [place] [address], [address], [facility] Office, [address] F/U (chief complaint) Coronary artery disease involving mary's igloo coronary artery of mary's igloo heart without angina pectorisMixed hyperlipidemiaNo nrheumatic mitral valve regurgitationDep ression, unspecified depression typeDiastolic dysfunction 4 Bruna Salgado. [address], [address], [place], [place], [id number], [place]. tel:[phone] Referring Provider: * Ask Pt For PCP. [facility], [address] [place] [address], [address], [place] [facility] Office, [address] No Information 4 Marcelino Larsen. [address], [address], [place], [address], [place]. tel:[phone] Offic/outpt E&m [facility], [address] [place] [address], [address], [facility] Office, [address] F/U (chief complaint) Coronary artery disease involving mary's igloo coronary artery of mary's igloo heart without angina pectorisMixed hyperlipidemiaNo nrheumatic mitral valve regurgitationDep ression, unspecified depression typeDiastolic dysfunction 3 Bruna Salgado. [address], [address], [place], [place], [id number], [place]. tel:[phone] Referring Provider: * Ask Pt For PCP. [facility], [address] [place] [address], [facility], [facility] Office, [address] F/U 2 (chief complaint) Coronary artery disease involving mary's igloo coronary artery of mary's igloo heart without angina pectorisMixed hyperlipidemiaNo nrheumatic mitral valve regurgitationDep ression, unspecified depression typeDiastolic dysfunctionBug bite with infection, initial encounter 3 Bruna Salgado. [address], [address], [place], [place], [id number], [place]. tel:[phone] Offic/outpt E&m [facility], [address] [place] [address], [facility], [facility] Office, [address] *Coronary Artery Disease (chief complaint) Coronary artery disease involving mary's igloo coronary artery of mary's igloo heart without angina pectorisMixed hyperlipidemiaNo nrheumatic mitral valve regurgitationDep ression, unspecified depression typeDiastolic dysfunctionBug bite with infection, initial encounter 3 Marcelino Larsen. [address], [address], [place], [address], [place]. tel:[phone] Referring Provider: Rocael Silvestre MD P, [address], [place], [address]. tel:[phone] [facility], [address] [place] [address], [facility], [facility] Office, [address] No Information 3 Marcelino Larsen. [address], [address], [place], [address], [place]. tel:[phone] Offic/outpt E&m [facility], [address] [place] [address], [address], [facility] Office, [address] *Coronary Artery Disease (chief complaint) Coronary artery disease involving mary's igloo coronary artery of mary's igloo heart without angina pectorisMixed hyperlipidemiaNo nrheumatic mitral valve regurgitationDep ression, unspecified depression typeDiastolic dysfunctionBug bite with infection, initial encounter 2 Marcelino Larsen. [address], [address], [place], [address], [place]. tel:[phone] Referring Provider: Adolfo Morejon, [address], [place], [address] . tel:[phone] Offic/outpt E&m [facility], [address] [place] [address], [address], [facility] Office, [address] *Coronary Artery Disease (chief complaint) Cardiovasc ular Review (chief complaint) Coronary artery disease involving mary's igloo coronary artery of mary's igloo heart without angina pectorisMixed hyperlipidemiaNo nrheumatic mitral valve regurgitationDep ression, unspecified depression typeDiastolic dysfunction 2 Marcelino Larsen. [address], [address], [place], [address], [place]. tel:[phone] Referring Provider: Adolfo Morejon, [address], [place], [address] . tel:[phone] Offic/outpt E&m [facility], [address] [place] [address], [address], [place] [facility] Office, [address] *Coronary Artery Disease (chief complaint) Cardiovasc ular Review (chief complaint) Coronary artery disease involving mary's igloo coronary artery of mary's igloo heart without angina pectorisMixed hyperlipidemiaNo nrheumatic mitral valve regurgitationDep ression, unspecified depression typeDiastolic dysfunction 1 Marcelino Larsen. [address], [address], [place], [address], [place]. tel:[phone] Referring Provider: Rocael Silvestre MD P, [address], [place], [address]. tel:[phone] [facility], [address] [place] [address], [facility], [facility] Office, [address] Mixed hyperlipidemiaCa rdiomegaly 1 Marcelino Larsen. [address], [address], [place], [address], [place]. tel:[phone] Offic/outpt E&m [facility], [address] [place] [address], [address], [facility] Office, [address] *Coronary Artery Disease (chief complaint) Cardiovasc ular Review (chief complaint) Coronary artery disease involving mary's igloo coronary artery of mary's igloo heart without angina pectorisMixed hyperlipidemiaNo nrheumatic mitral valve regurgitationDep ression, unspecified depression typeDiastolic dysfunction 1 Marcelino Larsen. [address], [address], [place], [address], [place]. tel:[phone] Referring Provider: Rocael Silvestre MD P, [address], [place], [address]. tel:[phone] Offic/outpt E&m [facility], [address] [place] [address], [facility], [facility] Office, [address] *Coronary Artery Disease (chief complaint) Cardiovasc ular Review (chief complaint) Coronary artery disease involving mary's igloo coronary artery of mary's igloo heart without angina pectorisMixed hyperlipidemiaNo nrheumatic mitral valve regurgitationDep ression, unspecified depression typeDiastolic dysfunction 0 Marcelino Larsen. [address], [address], [place], [address], [place]. tel:[phone] Referring Provider: Rocael Silvestre MD P, [address], [place], [address]. tel:[phone] Physician Telephone Services; 5-10 Min [facility], [address] [place] [address], [facility], [facility] Office, [address] Coronary artery disease involving mary's igloo coronary artery of mary's igloo heart without angina pectorisMixed hyperlipidemiaNo nrheumatic mitral valve regurgitationDia stolic dysfunctionAdvic e given about COVID-19 virus by telephone 0 Marcelino Larsen. [address], [address], [place], [address], [place]. tel:[phone] Referring Provider: Chava Benson [address], [place], [address]. tel:[phone] [facility], [address] [place] [address], [address], [facility] Office, [address] Nonrheumatic mitral (valve) insufficiencyNon rheumatic tricuspid (valve) insufficiencyCar diomegaly 9 Michael Weir. [address], [address], [place], [address], [place]. tel:[phone] Referring Provider: Chava Benson [address], [place], [address]. tel:[phone] Offic/outpt E&m [facility], [address] [place] [address], [address], [facility] Office, [address] *Coronary Artery Disease (chief complaint) Cardiovasc ular Review (chief complaint) Coronary artery disease involving mary's igloo coronary artery of mary's igloo heart without angina pectorisMixed hyperlipidemiaNo nrheumatic mitral valve regurgitationDep ression, unspecified depression typeDiastolic dysfunctionOther specified counseling 9 Marcelino Larsen. [address], [address], [place], [address], [place]. tel:[phone] Referring Provider: Rocael Silvestre MD P, [address], [place], [address]. tel:[phone] [facility], [address] [place] [address], [address], [facility] Office, [address] No Information 9 Marcelino Larsen. [address], [address], [place], [address], [place]. tel:[phone] Family History Family Member Type Diagnosis Age At Onset Mother Problem (finding) AF Father Problem (finding) CAD in father/brother a t age <55 Mother Problem (finding) malignant neop lasm of ovary (Cause Of ) Father Problem (finding) Myocardial infarction ( Cause Of ) Payers Payer name Insurance type Covered green party ID Otoniel cazares(s) Medicare 16 Mario JOYA [id number] [place] Faby Alaniz [id number] Social History Type Description Quantity Date Captured Comments Alcohol Use Details Unknown Caffeine Use Details Unknown Tobacco Use Status No Information Smoking Status No Information Sex Male Chief Complaint And Reason For Visit No Information Reason For Referral Reason For Referral No Information Plan Of Treatment Date Type Action Status Referral Ordered: ADOLFO JEFFRIES -[facility]opathic [facility] Osteopathic Physicians : Family Medicine (related to Mixed hyperlipidemia) ordered Referral Referred To: ADOLFO JEFFRIES [address] [place], [place], [phone] Ordered: Referrals: [facility] Physicians : Family Medicine. ADOLFO JEFFRIES ordered Referral Referred To: ROCAEL SILVESTRE [address] [place], [phone] Ordered: Referrals: [facility]opathic [facility] Osteopathic Physicians : Family Medicine. ROCAEL SILVESTRE ordered History Of Present Illness Encounter Date Complaint History Of Prese nt Illness follow up 63-year-old michael keller with history of coronary disease, mild mitral regurgitation, hyperlipidemia, comes in for follow-up.he feels well, he has no chest pain or SOB , he walks regularly, today he did 2 miles he has no dizziness or syncope, No LE edema and no bleeding issues. F/U Primary Cardiolo gist: Chava eBnson M.D 62 y.o male came in for a f/u. He presents today feeling well with no acute complaints. He remains physically active and stated that he is feeling good.Hx: CAD s/p PCI 08/2016 and 10/[address] Benson, MV regurgitation, HLD, Diastolic dysfunction Denies SOB orthopnea, MAZA, fatigue, Paroxysmal Nocturnal Dyspnea. Chest discomfort, chest pain, palpitations, near syncope, syncope and dizziness. Exercise/Activity: Does yoga 2x/week and walks 2 miles out of 2 days with a friend with no cardiac limitation. Functional Capacity: >4Hospitalizations: n/a Family Hx/Cardiac Related: Father: from [place] at 64 y.o Occupation: Retired, lives alone Smoking Drugs Alcohol: n/a. F/U Primary Cardiolo gist: Chava AbreunomanodellManuel 62 y.o male came in for a f/u. He presents today feeling well with no complaints. Hx: CAD s/p PCI 08/2016 and 10/[address] Benson, MV regurgitation, HLD, Diastolic dysfunction Denies SOB orthopnea, MAZA, fatigue, Paroxysmal Nocturnal Dyspnea. Chest discomfort, chest pain, palpitations, near syncope, syncope and dizziness. Exercise/Activity: Does yoga 2x/week and walks 2 miles out of 2 days with a friend with no cardiac limitation. Functional Capacity: >4Hospitalizations: n/a Family Hx/Cardiac Related: Father: [place] 64 y.o Occupation: Retired, lives alone Smoking Drugs Alcohol: n/a. F/U 2 Primary Cardiolo gist: Neelcharlene Benson M.D 62 y.o male came in for a f/u. He presents today feeling Hx: CAD, MV regurgitation, HLD, Diastolic dysfunction Denies SOB orthopnea, MAZA, fatigue, Paroxysmal Nocturnal Dyspnea. Chest discomfort, chest pain, palpitations, near syncope, syncope and dizziness. Exercise/Activity: Hospitalizations: Family Hx/Cardiac Related: Occupation: Smoking Drugs Alcohol:. *Coronary Artery Disease In bigg tion to walking 2 times a week, he is now doing yoga twice a week.His balance is better and he walks betterHe can walk 2 1/2 miles with no leg pain.No dizzinessNo CP or SOB *Coronary Artery Disease The pt had a large lump on the back L side since 5 days. He believes it was an insect bite. It is tender to touchHe is still walking 2-3 miles a day 3days a week. Works at a [employer] shop as well.No CP or SOBThe ECG shows NSR *Coronary Artery Disease The pt is doing well. Since the last visit, he started OMEGA 3 due to elevated TG level.No recheck so far. He is vaccinated and boosted x 1 for COVID.No CP or SOB. He walks twice a week, 2-3 miles at a time. He has stopped going to the health club. Cardiovascular Review He has had no chest discomfort suggestive of ischemia. The patient denies orthopnea, PND, MAZA, or edema. Mr. Gee has not had palpitations, syncope or near syncope. *Coronary Artery Disease The pt is doing OKHe received both COVID vaccines this past summer and is planning on the booster very soon.No CP or palpitations. No SOB to reportNo changes in his medsThe ECG shows NSR, old inferior infarct.Labs being done by his primary MDThe pt had labs last week. The LDL was 63, HDL 30, TG 209, TC 135Cr 1.6, but on an CHRISTEL for renal protection. Cardiovascular Review He has had no chest discomfort suggestive of ischemia. The patient denies orthopnea, PND, MAZA, or edema. Mr. Gee has not had palpitations, syncope or near syncope. Cardiovascular Review The francesco blue has had no chest discomfort suggestive of ischemia. The patient denies orthopnea, PND, MAZA, or edema. Mr. Gee has not had palpitations, syncope or near syncope. *Coronary Artery Disease The pt comes for follow up for CADHe plans on getting the COVID vaccine with his primary MD next week hopefully.No CP or palpitations. No SOB to report.No new meds since the last visit *Coronary Artery Disease The pt started going on walks with a friend up to 2 miles. He also went back to [employer] 2 months ago.No CP or palpitations with activity. No SOB to report. Cardiovascular Review The francesco blue has had no chest discomfort suggestive of ischemia. The patient denies orthopnea, PND, MAZA, or edema. Mr. Gee has not had palpitations, syncope or near syncope. Cardiovascular Review He has had no chest discomfort suggestive of ischemia. The patient denies orthopnea, PND, MAZA, or edema. Mr. Gee has not had palpitations, syncope or near syncope. *Coronary Artery Disease The pt is doing well in general. He continues to go to [employer] 3 times a week. he was changed from Prozac to Paxil by his psychiatrist. Functional Status Date Functional Assessmen t No Information Instructions Date Instruction Additional Infor surendra Blood Pressure Diary Blood Pressure Diary Assessments Type Assessment Date No Information Patient Care Teams Name Effective Dates (start - stop) Status Members No Information
--- NOTE | ~2025-01-05 | CT_ITS ---
EXAMINATION: CTA LE DATE: 01/05/2025 11:00 INDICATION: Left lower leg hematoma with left leg pain and edema TECHNIQUE: Computed tomographic angiography (CTA) of the left lower extremity was performed with 100 mL Omnipaque 350 intravenous contrast. Automated exposure control and iterative reconstruction technique were employed. The dose-length product was 778.61 mGy-cm. COMPARISON: MRI dated 01/04/2025 FINDINGS: Small amount of nonhemodynamically significant atherosclerotic plaque along the bilateral internal iliac arteries and proximal left external iliac artery. There is a small dissection flap at the distalmost left common femoral artery extending minimally into the portion of the left superficial femoral artery. The left profunda femoral artery is patent. Atherosclerotic plaque along the distalmost left superficial femoral artery and the left popliteal artery with mild, <50% stenosis. There is additional scattered atherosclerotic plaque with <50% stenosis at the left tibioperoneal trunk and proximal left anterior tibial artery with runoff below the ankle at the left anterior tibial and posterior tibial arteries and to just above the ankle in the left peroneal artery which then bifurcates with contrast opacified branches continuing distally to the ankle. Relatively high attenuation fusiform hematoma measuring 15.1 cm in length and 7.0 x 4.7 cm maximal transaxial dimensions which has increase in size since the prior MRI at which time it measured 13.8 x 6.6 x 3.9 cm. The hematomas located deep to the superficial muscular fascia and exerts mass effect upon the underlying medial head of the gastrocnemius muscle where there is severe fatty atrophy. The previously seen active contrast extravasation along the deep margin of the hematoma is not appreciated on the current study although sensitivity is significantly lower than on the prior MRI where there was a significantly higher degree of contrast between the signal intensity of the contrast and the backg round signal intensity hematoma versus the significantly lower difference in attenuation between the hematoma and the contrast opacified blood. Small left knee joint effusion. No fracture. Postoperative change at the right first proximal phalanx with screw fixation. Mild osteoarthritis at the left hip, knee and multiple joints at the left foot. Sclerotic bone island at the head of the left talus. Small fat-containing left inguinal hernia. Prostatomegaly measuring 6.0 x 5.0 cm. No pathologically enlarged pelvic or left inguinal lymphadenopathy. IMPRESSION: 1. Interval increase in size of a now 15.1 x 7.0 x 4.7 cm hematoma at the posterior compartment of the left calf which exerts mass effect upon the medial head of the gastrocnemius which demonstrates severe fatty atrophy. 2. Very small dissection flap at the bifurcation of the left common femoral artery extending minimally into the origin of the superficial femoral artery. 3. Scattered nonhemodynamically significant atherosclerotic plaque in the pelvic arteries and the arteries of the left lower limb with runoff below the ankle in the left anterior tibial and posterior tibial arteries. Reviewed, dictated and finalized at location A. IMPRESSION: 1. Interval increase in size of a now 15.1 x 7.0 x 4.7 cm hematoma at the post erior compartment of the left calf which exerts mass effect upon the medial hea d of the gastrocnemius which demonstrates severe fatty atrophy. 2. Very small dissection flap at the bifurcation of the left common femoral art huseyin extending minimally into the origin of the superficial femoral artery. 3. Scattered nonhemodynamically significant atherosclerotic plaque in the pelvi c arteries and the arteries of the left lower limb with runoff below the ankle in the left anterior tibial and posterior tibial arteries.
[2025-01-05 09:09] VITALS: BP 202/80; PULSE 85; RESP 17; TEMP 37.1; O2SAT 100
[2025-01-05 09:47] VITALS: BP 157/82; RESP 12; O2SAT 100
[2025-01-05] MEDS: HYDROmorphone HCL INJ (*CRX) 1 MG/ML SYR IV PUSH (09:57)
[2025-01-05 09:59] VITALS: BP 157/82; PULSE 70; RESP 20; O2SAT 99
--- NOTE | 2025-01-05 10:01 | ED.GENADULT ---
HPI - General Adult General Chief complaint: Extremity Problem,Nontraumatic Stated complaint: left leg pain Time Seen by Provider: 01/05/25 09:22 History of Present Illness HPI narrative: 64-year-old male presents to the emergency department for evaluation for worsening left lower extremity pain. Patient did have initial follow-up on 01/01 with primary care physician was diagnosed with a DVT. Patient did start taking Xarelto. Patient took Xarelto for approximately 2 days and had worsening symptoms of a follow-up with primary care physician and was diagnosed with a hematoma. Patient did have an MRI yesterday that did show active extravasation. Patient was encouraged to present to the emergency department at that time but patient declined. Patient report he did have worsening pain over the last 24 hours or present to the emergency department today. Patient does have some pitting edema of the left lower extremity but is neurovascularly intact. Related Data Home Medications ?Medication ?Instructions ?Recorded ?Confirmed ?Last Taken ?Type fluticasone propionate 50 1 spray intranasal DAILY 10/13/23 01/04/25 04/07/24 History mcg/actuation nasal spray,suspension aspirin 81 mg tablet,delayed 81 mg PO DAILY 03/21/24 01/04/25 04/05/24 History release vit 2 tablet PO DAILY 03/28/24 01/04/25 04/05/24 History [id number] 500 mg-50 mg-25 mg-40 mg tablet (Bioflex) cholecalciferol (vitamin D3) 125 125 mcg PO DAILY 12/27/24 01/04/25 Unknown History mcg (5,000 unit) capsule terbinafine HCl 250 mg tablet mg PO 12/27/24 01/04/25 Unknown History Allergies Allergy/AdvReac Type Severity Reaction Status Date / Time crab Allergy Swelling Verified 01/05/25 09:46 of Lip/Tongue/Throat Review of Systems Review of Systems: All systems reviewed & are unremarkable except as noted in HPI and below PMFSH Past Medical History Medical History (Updated 01/05/25 @ 12:48 by Surya Latham MD) Lumbar stenosis with neurogenic claudication Abnormal EKG Arthritis Allergies Hypothyroidism Chronic fatigue Social History Social History Years smoked: 4 Smoking status: Former smoker Tobacco type: cigarettes Smoking end date: 03/22/97 Alcohol intake: current Drinks per week: 6 Alcohol use details: beer/wine 1-2 a week Substance use: never Substance use type: does not use Do You Feel Safe in your Home?: No Lack of Transportation: No Lack of Food: Never True Current Housing: I Have Housing Concerned About Future Housing: No Difficulty Paying Gas/Electric Bills: No Difficulty Paying for Meds: No Currently Unemployed: No Education: Bachelor's Degree Difficulty w/ Childcare or Family Care: No Living arrangements: with family Additional living arrangements comments: S.O. Spiritual care concerns: No Exam Narrative: APPEARANCE: Well-appearing in no significant distress HEAD: normocephalic, atraumatic. EYES: PERRLA/EOMI, conjunctivae clear. NOSE: Normal no drainage EARS:TMS clear with good light reflex. THROAT: Pharynx clear, no exudate. NECK: Supple. No adenopathy, no masses. RESPIRATORY: Airway patent, respirations nonlabored. Clear to auscultation bilaterally, no rales, rhonchi, wheezing. CARDIOVASCULAR: Regular rate and rhythm without murmurs rubs or gallops. ABDOMINAL: Soft, nontender, nondistended, normal bowel sounds MUSCULOSKELETAL: Edema of left lower extremity neurovascularly intact. Passive range of motion of the foot without pain. NEURO: Alert. Cranial nerves II through XII intact. Good gait. Good coordination SKIN: Warm, dry. Normal Color Course Vital Signs Vital signs: Vital Signs Temperature 98.8 F 01/05/25 09:09 Pulse Rate 85 01/05/25 09:09 Respiratory Rate 17 01/05/25 09:09 Blood Pressure 202/80 H 01/05/25 09:09 Pulse Oximetry 100 01/05/25 09:09 Oxygen Delivery Room Air 01/05/25 09:09 Temperature 98.8 F 01/05/25 09:09 Pulse Rate 79 01/05/25 12:12 Respiratory Rate 15 01/05/25 12:12 Blood Pressure 167/83 H 01/05/25 12:12 Pulse Oximetry 100 01/05/25 12:12 Oxygen Delivery Room Air 01/05/25 09:47 Medical Decision Making MDM Narrative Medical decision making narrative: 64-year-old male presents to the emergency department for evaluation for left leg pain. Patient had been on Eliquis for a DVT was found to have a hematoma with active extravasation on MRI yesterday. Patient has not taken has Eliquis for the past few days. Patient did have worsening pain of the left lower extremity last night. Patient was treated with IV Dilaudid emergency department and pain has since improved. Patient has been emergency department for many hours and pain did not really worsen. Patient is currently afebrile with no leukocytosis hemoglobin of 13.0. INR of 1.0. No acute abnormalities on the CMP. CTA does show adequate distal blood flow. Patient does have a strong distal pulse. Low concern for compartment syndrome at this time. Patient is resting comfortably patient does have pain-free active motion of the lower extremity. Patient was offered admission for pain control but patient declined and preferred to try stronger pain medications for home. Patient does have follow-up with outpatient surgery, Dr. Vasquez on Wednesday. Patient was educated on reasons to return to the emergency department. All questions concerns were addressed. Patient was well-appearing and in no distress at time of discharge. Differential Diagnosis Differential Diagnosis: Hematoma, DVT, compartment syndrome Vital Signs Vital Signs: Vital Signs Temperature 98.8 F 01/05/25 09:09 Pulse Rate 85 01/05/25 09:09 Respiratory Rate 17 01/05/25 09:09 Blood Pressure 202/80 H 01/05/25 09:09 Pulse Oximetry 100 01/05/25 09:09 Oxygen Delivery Room Air 01/05/25 09:09 Temperature 98.8 F 01/05/25 09:09 Pulse Rate 79 01/05/25 12:12 Respiratory Rate 15 01/05/25 12:12 Blood Pressure 167/83 H 01/05/25 12:12 Pulse Oximetry 100 01/05/25 12:12 Oxygen Delivery Room Air 01/05/25 09:47 Lab Data Lab results reviewed: Yes I reviewed the patient's lab results. 01/05/25 10:02 01/05/25 10:02 Labs: Lab Results 01/05/25 Range/Units 10:02 WBC 12.2 H (4.5-10.0) K/mm3 RBC 4.62 (4.6-6.20) M/mm3 Hgb 13.0 L (14.0-18.0) g/dL Hct 39.6 L (42.0-52.0) % MCV 85.7 (80-100) fl MCH 28.1 (26-34) pg MCHC 32.8 (32-36) g/dl RDW 14.0 (11.5-14.5) % Plt Count 297 (150-375) k/mm3 MPV 9.7 (7.4-10.4) fl Immature Gran % (Auto) 0.4 (0-0.5) % Neut % (Auto) 75.4 H (45.5-73.1) % Lymph % (Auto) 14.5 L (18.3-44.2) % Davidson % (Auto) 8.4 (2.6-8.5) % Eos % (Auto) 0.8 (0-4.4) % Baso % (Auto) 0.5 (0.2-1.2) % Lymph # (Auto) 1.76 (0.9-3.2) K/mm3 Davidson # (Auto) 1.0 H (0.1-0.6) K/mm3 Eos # (Auto) 0.1 (0-0.3) K/mm3 Baso # (Auto) 0.1 (0.0-0.1) K/mm3 Abs Immat Gran (auto) 0.05 H (0.00-0.031) K/mm3 Absolute Neuts (auto) 9.2 H (1.3-6.7) K/mm3 Absolute Nucleated RBC 0.000 (0.0-0.012) K/mm3 Nucleated RBC % 0.0 (0.0-0.2) % PT 13.0 (11.1-14.7) Seconds INR 1.0 APTT 31.4 (22.3-36.8) Seconds Sodium 135 L (137-145) mmol/L Potassium 3.8 (3.4-5.0) mmol/L Chloride 105 (98-107) mmol/L Carbon Dioxide 23 (22-30) mmol/L Anion Gap 7 (4-12) mmol/L BUN 17 (9-20) mg/dL Creatinine 0.77 (0.7-1.3) mg/dL Estim Creat Clear Calc 85 ml/min Estimated GFR > 60 (59 - ) Glucose 127 H (65-110) mg/dL Calcium 9.1 (8.4-10.2) mg/dL Total Bilirubin 0.8 (0.2-1.3) mg/dL AST 22 (17-59) U/L ALT 20 (6-50) U/L Alkaline Phosphatase 113 (38-126) U/L Total Protein 7.1 (6.3-8.2) g/dL Albumin 4.3 (3.5-5.1) g/dL Imaging Data Radiologist's impression: Impressions Lower Extremity CTA 01/05/25 11:07 IMPRESSION: 1. Interval increase in size of a now 15.1 x 7.0 x 4.7 cm hematoma at the posterior compartment of the left calf which exerts mass effect upon the medial head of the gastrocnemius which demonstrates severe fatty atrophy. 2. Very small dissection flap at the bifurcation of the left common femoral artery extending minimally into the origin of the superficial femoral artery. 3. Scattered nonhemodynamically significant atherosclerotic plaque in the pelvic arteries and the arteries of the left lower limb with runoff below the ankle in the left anterior tibial and posterior tibial arteries. Discharge Plan Discharge Clinical Impression: Hematoma Patient Disposition: Home Condition: Stable Instructions: Antibiotic Form, Hematoma (ED) Additional Instructions: You were offered admission for pain control but you declined and preferred to try additional pain medications for home. Rest and elevate the leg as directed. If you have any worsening symptoms please call or return to the emergency department. Have close outpatient follow-up with surgery as scheduled on Wednesday. Continue to have close outpatient follow-up with your primary care physician. Patient Language: Korean Prescriptions: New oxycodone [OxyContin] 10 mg tablet,oral only,ext.rel.12 hr 10 mg PO Q12H 7 Days Qty: 14 0RF oxycodone 10 mg tablet 10 mg PO Q8H PRN (Reason: pain) 7 Days Qty: 20 0RF No Action fluticasone propionate 50 mcg/actuation spray,suspension 1 spray intranasal DAILY Rx Instructions: administer into each nostril terbinafine HCl 250 mg tablet PO cholecalciferol (vitamin D3) 125 mcg (5,000 unit) capsule 125 mcg PO DAILY pregabalin [Lyrica] 75 mg capsule 75 mg PO DAILY Qty: 90 1RF aspirin 81 mg tablet,delayed release (DR/EC) 81 mg PO DAILY oxycodone 5 mg tablet 5 mg PO Q8H PRN (Reason: pain) Qty: 20 0RF Bioflex 342-26-44-40 mg tablet 2 tablet PO DAILY testosterone 1 % (50 mg/5 gram) gel in packet 1 packet topical BID Qty: 150 1RF modafinil 200 mg tablet 200 mg PO QAM Qty: 30 0RF Eliquis DVT-PE Treat 30D Start 5 mg (74 tabs) tablets,dose pack See Rx Instructions PO PER PKG DIR Qty: 74 0RF Rx Instructions: PO PER PKG DIR levothyroxine 50 mcg capsule 50 mcg PO DAILY Qty: 90 0RF Follow-up/Referrals: Nadira Vasquez MD [Physician, General Surgery] Beka Woods DO [Primary Care Provider, Internal Medicine]
[2025-01-05 10:12] LABS: Hematocrit 39.6 % (42.0-52.0); Hemoglobin 13.0 g/dL (14.0-18.0); Immature Granulocyte Percent A 0.4 % (0-0.5); Lymphocytes Absolute Auto 1.76 K/mm3 (0.9-3.2); Mean Corpuscular HGB Conc 32.8 g/dl (32-36); Mean Corpuscular Hemoglobin 28.1 pg (26-34); Mean Corpuscular Volume 85.7 fl (80-100); Nucleated Red Blood Cells Absolute Auto 0.000 K/mm3 (0.0-0.012); Nucleated Red Blood Cells Perc 0.0 % (0.0-0.2); Platelet Count Result 297 k/mm3 (150-375); Red Blood Count 4.62 M/mm3 (4.6-6.20); White Blood Count 12.2 K/mm3 (4.5-10.0)
[2025-01-05 10:23] LABS: INR 1.0; Prothrombin Time 13.0 Seconds (11.1-14.7)
[2025-01-05 10:24] LABS: Partial Thromboplastin Time 31.4 Seconds (22.3-36.8)
[2025-01-05 10:25] LABS: Alanine Aminotransferase 20 U/L (6-50); Albumin Level 4.3 g/dL (3.5-5.1); Alkaline Phosphatase 113 U/L (38-126); Anion Gap 7 mmol/L (4-12); Aspartate Amino Transferase 22 U/L (17-59); Bilirubin,Total 0.8 mg/dL (0.2-1.3); Blood Urea Nitrogen 17 mg/dL (9-20); Calcium 9.1 mg/dL (8.4-10.2); Carbon Dioxide 23 mmol/L (22-30); Chloride 105 mmol/L (98-107); Estimated CRCL calculation 85 ml/min; Estimated Glomerular Filt Rate > 60; Glucose 127 mg/dL (65-110); Potassium 3.8 mmol/L (3.4-5.0); Sodium 135 mmol/L (137-145); Total Protein 7.1 g/dL (6.3-8.2)
[2025-01-05 12:12] VITALS: BP 167/83; PULSE 79; RESP 15; O2SAT 100
[2025-01-05] MEDS: oxyCODONE/ACETAMINOPHEN (*CRX) 10-325 MG TABLET 1 TAB PO (12:48)
== END 2025-01-05 13:10 | disposition home or self-care (01) ==
PROVIDERS: Emergency Provider Emergency Medicine; PCP Internal Medicine
DX: M79.81 Nontraumatic hematoma of soft tissue (principal)
CPT/HCPCS: 36415; 73706; 80053; 85025; 85610; 85730; 96374; 99284; A9270; J1171; Q9967

== ENCOUNTER 2025-01-23 10:16 | Outpatient (CLI) | payer MEDICARE, SELFPAY ==
--- NOTE | ~2025-01-23 | XR_ITS ---
EXAMINATION: XR knee LT 3V, 01/23/2025 10:27 LICENSED [employer] HISTORY: Pain in left knee COMPARISON: No comparisons available. Findings: No acute fracture or malalignment. No significant degenerative changes. Soft tissues unremarkable. Impression: No acute fracture or malalignment. Reviewed, dictated and finalized at location P. NSED [employer] Impression: No acute fracture or malalignment.
--- NOTE | ~2025-01-23 | XR_ITS ---
EXAMINATION: XR shoulder LT min 2V, 01/23/2025 10:27 [employer]OCI[employer] HISTORY: Pain in left knee x 2 months, no injury, no surg COMPARISON: No comparisons available. Findings: No acute fracture or malalignment. Moderate degenerative changes Soft tissues unremarkable. Impression: No acute fracture or malalignment. Reviewed, dictated and finalized at location P. CIATE [employer] Impression: No acute fracture or malalignment.
== END 2025-01-23 10:17 | disposition home or self-care (01) ==
PROVIDERS: PCP Internal Medicine; Visit Provider Internal Medicine
DX: M25.562 Pain in left knee (principal); M25.512 Pain in left shoulder
CPT/HCPCS: 73030; 73562

== ENCOUNTER 2025-02-08 08:00 | Outpatient (RCR) | payer MEDICARE, SELFPAY ==
--- NOTE | 2025-01-30 10:05 | OPREHPOC ---
Outpatient Therapy Plan of Care This is a Multidisciplinary Plan of Care that may contain components documented by all disciplines (PT, OT, and ST.) PT Problem 1 PT Problem #1 Knowledge Deficit PT Goal 1 Goal / Goal Update Patient will demonstrate independence, with proper form, of HEP items in 2 weeks to facilitate successful rehab. PT Problem 2 PT Problem #2 Pain PT Goal 1 Goal / Goal Update Patient will report the following pain levels w/ LUE elevation above 90de/10 in 6 weeks. 1/10 in 12 weeks. PT Problem 3 PT Problem #3 Impaired Coordination PT Goal 1 Goal / Goal Update Patient will lift 9lbs overhead with LUE w/ </= 2/ 10 pain in 12 weeks to return to prior level of function. PT Goal 1 Goal / Goal Update Patient will report sleeping through the night, without being woken 2/2 L shoulder pain, on 75% of nights in the last wee, in 12 weeks.
--- NOTE | 2025-01-30 10:17 | PTOPEVAL1 ---
Assessment and note entered by Clara Herrera PT Evaluation Information Assessment Status Evaluation ICD-10 Condition Codes (PT) Pain in left shoulder M25.512 Subjective Information Patient's chief complaint is L shoulder pain. Had an instance of as using LUE getting up from the ground this summer when he felt a pop and then his arm dropped uncontrollably. States that x-rays showed arthritis only, despite initial physician suspicion of RC tear. Current pain wakes him at night. Pain 0/10 at rest, up to 9/10 w/ lifting anything heaving that a half gallon of milk, worst w/ lifting overhead. Other relevant information: Double laminectomy in 2024, pt indicates it was a good recovery w/ PT. Thinks it was L4 L5. Late summer 2024 had onset of L knee pain, currently treated with injections. December 2024, was hiking and tore L calf muscle, developed DVT and eventual arterial tear. Severe pain (up to 11/10) not helped by medication, until 1 week ago. Currently 1-2/10 pain at rest. Feels that weak core is limiting his recovery overall. Reported Pain Level Pain Score 2: Self Report Assessment PT Clinical Summary Patient is a 64 y/o male presenting to PT with chief complaint of L shoulder pain. Onset a few months ago with using LUE to assist with standing from the ground, felt a pop and reports that his entire arm dropped. No additional instances of arm drop since this time. Assessment finds decreased ROM in L shoulder, with painful arc indicating SAPS. RC pathology, likely supraspinatus, is also evident following testing, though a full thickness cannot be concluded. Decreased scapular neuromotor and poor scapulohumeral rhythm also contributes. Patient is a good candidate for skilled PT to improve shoulder range of motion, strength, and decreased pain w/ overhead motion to facilitate full, pain-free participation in ADLs and daily activity. 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 Plan of Care Interventions Hot Pack/Cold Pack,Neuro Re-education,Therapeutic Exercise,Self-Care/Home Management PT Services Indicated Yes Treatment Frequency and 2x/week for 6 weeks Duration These treatments will address the objective and functional deficits as defined above. The patient will be advanced safely and appropriately in order for the patient to progress towards his/her prior level of function. Additional exercises will be introduced and as well as a comprehensive home exercise program upon discharge, if needed, ?to ensure carryover of functional gains achieved in the clinic. This treatment plan has been reviewed and agreement upon by the patient.
--- NOTE | 2025-02-26 08:54 | PTOPDC ---
Assessment and note entered by Clara Herrera, PT Evaluation Information Assessment Status Discharge - Pt Not Present ICD-10 Condition Codes (PT) Pain in left shoulder M25.512 Subjective Information Via phone call on 02/26/2025, pt indicates he will not complete his PT POC and that all scheduled appointments should be cancelled. Assessment PT Clinical Summary Over the course of physical therapy pt had some success with decreasing his L shoulder pain. He was compliant with HEP. Continued efforts to improve scapulohumeral rhythm and stabilize GH joint are recommended should he resume his therapy care. Plan of Care PT Services Indicated No
== END 2025-02-26 11:58 | disposition home or self-care (01) ==
LOC: ANHGOSHPT 08:00
PROVIDERS: PCP Internal Medicine; Visit Provider Internal Medicine
DX: M25.512 Pain in left shoulder (principal)
CPT/HCPCS: 97110; 97112; 97140; 97161; 97530

== ENCOUNTER 2025-02-27 08:07 | Emergency (ER) | payer MEDICARE, SELFPAY ==
--- NOTE | ~2025-02-27 | XR_ITS ---
EXAMINATION: XR knee LT min 4V DATE: 02/27/2025 09:26 INDICATION: Injury TECHNIQUE: Left knee x-rays were obtained. COMPARISON: January 23, 2025 IMPRESSION: 1. No displaced fracture lucency subluxation or dislocation. 2. Moderate size suprapatellar effusion may be present on the lateral view. No radiopaque foreign body seen. Reviewed, dictated and finalized at location A. [employer]
[2025-02-27 08:17] VITALS: BP 186/98; PULSE 68; RESP 16; TEMP 36.6; O2SAT 99
[2025-02-27] MEDS: HYDROcodone/acetaminophen (*CRX) 5-325 MG TABLET 1 TAB PO (10:04)
[2025-02-27] MEDS: KETOROLAC 30 MG/ML VIAL (*BKC) IM (10:05)
--- NOTE | 2025-02-27 10:16 | ED.LOWEXIN ---
HPI - Extremity Injury (Lower) General Chief Complaint: Extremity Injury, Lower Stated Complaint: left knee pain Time Seen by Provider: 02/27/25 09:05 Source: patient Mode of arrival: ambulatory Limitations: no limitations History of Present Illness HPI Narrative: Patient is a 64-year-old male who presents the ED with report of left knee pain. Patient reports he has been dealing with a hematoma of his left lower leg for the past few months. Has had some difficulty walking due to this. He slipped and fell on ice yesterday while walking his dog, and twisted his left knee. Did also land on his right shoulder, but denies significant pain. Denies significant head injury. Denies LOC, headache, dizziness, lightheadedness. Complains of pain and swelling to his left knee. Has not taken anything for pain. Related Data Home Medications ?Medication ?Instructions ?Recorded ?Confirmed ?Last Taken ?Type cholecalciferol (vitamin D3) 125 125 mcg PO DAILY 12/27/24 01/23/25 Unknown History mcg (5,000 unit) capsule Allergies Allergy/AdvReac Type Severity Reaction Status Date / Time crab Allergy Swelling Verified 01/23/25 09:49 of Lip/Tongue/Throat Review of Systems Review of Systems: All systems reviewed & are unremarkable except as noted in HPI. All systems reviewed & are unremarkable except as noted in HPI and below PMFSH Past Medical History Medical History Lumbar stenosis with neurogenic claudication Abnormal EKG Arthritis Allergies Hypothyroidism Chronic fatigue Social History Social History Years smoked: 4 Smoking status: Former smoker Tobacco type: cigarettes Smoking end date: 03/22/97 Alcohol intake: current Drinks per week: 6 Alcohol use details: beer/wine 1-2 a week Substance use: never Substance use type: does not use Lack of Transportation: No Lack of Food: Never True Current Housing: I Have Housing Concerned About Future Housing: No Difficulty Paying Gas/Electric Bills: No Difficulty Paying for Meds: No Currently Unemployed: No Education: Bachelor's Degree Difficulty w/ Childcare or Family Care: No Living arrangements: with family Additional living arrangements comments: S.O. Spiritual care concerns: No Exam Narrative: GENERAL: Well appearing, well-nourished, non-toxic, in no acute distress. HEAD: Normocephalic, atraumatic. RESPIRATORY: Airway patent, respirations nonlabored. CARDIOVASCULAR: Regular rate and rhythm. Pedal pulses intact and easily palpable MUSCULOSKELETAL: Moves all extremities. No gross deformities. Mild diffuse tenderness throughout left anterior knee with mild swelling. No gross deformities. No warmth or erythema. SKIN: Warm, dry, normal color. NEURO: A&O X3. Speech clear. Cranial nerves II-XII grossly intact. Steady gait. No ataxic movements. PSYCHIATRIC: Appropriate mood and affect. Normal interaction. Course Vital Signs Vital signs: Vital Signs Temperature 97.9 F 02/27/25 08:17 Pulse Rate 68 02/27/25 08:17 Respiratory Rate 16 02/27/25 08:17 Blood Pressure 186/98 H 02/27/25 08:17 Pulse Oximetry 99 02/27/25 08:17 Oxygen Delivery Room Air 02/27/25 08:17 Temperature 97.9 F 02/27/25 08:17 Pulse Rate 68 02/27/25 08:17 Respiratory Rate 16 02/27/25 08:17 Blood Pressure 186/98 H 02/27/25 08:17 Pulse Oximetry 99 02/27/25 08:17 Oxygen Delivery Room Air 02/27/25 08:17 [facility] MDM Narrative Medical decision making narrative: Patient?s injury is consistent with musculoskeletal etiology. No signs of neurologic or vascular compromise on physical examination. Compartments are soft without signs of compartment syndrome. XR showing suprapatellar effusion, no fracture. Pain is consistent with knee strain, discussed possibility of ligamentous versus meniscal injury. Patient is felt to be stable for discharge home and further outpatient management and treatment. Placed in Jp bandage. Given crutches. Discussed rice therapy. Will prescribe short course of pain medication for home. Discussed Tylenol/ibuprofen. Will refer to orthopedics for further evaluation. Given return precautions. Discharged in stable condition. Differential Diagnosis Differential Diagnosis: Knee strain, patellar fracture, tibia/femur fracture, joint effusion, cellulitis Imaging Data Attestation: I personally reviewed and interpreted this imaging study as follows: Radiologist's impression: ITS Impressions Knee X-Ray 02/27/25 09:31 IMPRESSION: 1. No displaced fracture lucency subluxation or dislocation. 2. Moderate size suprapatellar effusion may be present on the lateral view. No radiopaque foreign body seen. Discharge Plan Discharge Clinical Impression: Suprapatellar effusion of knee Strain of left knee Qualifiers: Encounter type: initial encounter Qualified Code(s): S86.912A - Strain of unspecified muscle(s) and tendon(s) at lower leg level, left leg, initial encounter Patient Disposition: Home Condition: Stable Instructions: Antibiotic Form, Knee Sprain (ED), Swollen Knee Joint (ED), P.R.I.C.E. Treatment (ED) Additional Instructions: Utilize JP bandage for compression and support of left knee. Keep leg elevated as much as possible. Recommend frequent icing to knee. Continue Tylenol and ibuprofen as needed for pain. You may use 600 mg of ibuprofen and 1000 mg of Tylenol every 6 hours. Raymond as needed for more severe pain. Follow-up with orthopedics with primary care doctor for further evaluation. Call offices to make appointments. Return to the ED if you experience new injury, worsening or severe pain, numbness, or any other symptoms of concern. Patient Language: [place]i Prescriptions: New hydrocodone-acetaminophen 5-325 mg tablet 1 tablet PO Q6H PRN (Reason: pain) Qty: 7 0RF No Action cholecalciferol (vitamin D3) 125 mcg (5,000 unit) capsule 125 mcg PO DAILY fluticasone propionate 50 mcg/actuation spray,suspension 1 spray intranasal DAILY Qty: 16 0RF Rx Instructions: administer into each nostril levothyroxine [Synthroid] 50 mcg tablet 50 mcg PO DAILY Qty: 90 0RF pregabalin 75 mg capsule 75 mg PO DAILY Qty: 90 1RF testosterone 1 % (50 mg/5 gram) gel in packet 1 packet topical DAILY Qty: 150 1RF Follow-up/Referrals: Saulo Motley MD [Physician, Orthopedics] Referral Note: ORTHOPEDICS Beka Woods DO [Primary Care Provider, Internal Medicine] Time of Disposition: 10:24
== END 2025-02-27 10:50 | disposition home or self-care (01) ==
PROVIDERS: Emergency Provider Physician Assistant; PCP Internal Medicine
DX: S86.912A Strain of unspecified muscle(s) and tendon(s) at lower leg level, left leg, initial encounter (principal); E03.9 Hypothyroidism, unspecified; M19.90 Unspecified osteoarthritis, unspecified site; R53.82 Chronic fatigue, unspecified; Z87.891 Personal history of nicotine dependence; W00.0XXA Fall on same level due to ice and snow, initial encounter; Y93.K1 Activity, walking an animal
CPT/HCPCS: 73564; 96372; 99283; A9270; J1885